=== PATIENT | male | born 1940 | race Caucasian/White ===

== ENCOUNTER → 2021-12-23 | Outpatient (CLI) | payer MEDICARE, SELFPAY ==
--- NOTE | 2021-12-23 | BLB_PTH ---
PATIENT: ANTON MENDOZA LOC: [place] U#:[id number] AGE/SX: 81/M ROOM: RE12/23/[address]: Dr. Billy Fernandez MD : 1940 BED: DIS: 12/23/2021 SPEC #: [id number] RECD: 12/23/21 15:01 STATUS: DARON RENupru #: [id number] MARIA TERESA: 12/23/21 00:[address]: Billy Fernandez DEPT: SURGICAL PATHOLOGY RECD BY: Maverick Thompson ENTERED: 12/24/21 08:47 SP TYPE: TURB OTHR DR: Dr. Ady Patel, [facility] Tissues: Urinary bladder, NOS Procedures: Surgery Specimen Level V HEADER OPERATION: Transurethral resection bladder tumor PRE-OP DIAGNOSIS: Neoplasm of bladder, gross hematuria TISSUE SUBMITTED: Bladder tumor MICROSCOPIC DIAGNOSIS Urinary bladder, transurethral resection: Papillary urothelial carcinoma. See cancer synoptic report below. AM:rebecca 12/25/2021 COMMENT BLADDER CANCER (TUR) SUMMARY Procedure: Transurethral resection of bladder tumor (TURBT) Tumor site: Not specified Histologic type: Papillary urothelial carcinoma Histologic grade: 1/3 (WHO low grade) Tumor configuration: Papillary Muscularis propria presence: Not present in specimen. Lymphvascular invasion: Not identified Tumor extension: Confined to urothelium. Additional pathologic findings: None The above summary is in compliance with [employer] [place] [employer] (CAP) Cancer Protocols Checklist and [place] Joint Committee on Cancer (AJCC), Staging Manual, 8th Ed. Case has been reviewed in consultation with Dr. Lunsford who concurs with the above diagnosis. STUART:BERNIE MICROSCOPIC DESCRIPTION Slides are reviewed. GROSS DESCRIPTION Received in fixative is one container labeled with the patient's name and designated bladder tumor. The specimen consists of multiple irregular fragments of light mehta soft tissue that in aggregate measure 5 x 3 x 0.3 cm. The specimen is totally submitted in two cassettes. / BERNIE:rebecca 12/24/2021 TC:0 CPT: 36563
== END | disposition home or self-care (01) ==
LOC: LABSPEC 15:30
PROVIDERS: PCP Preventive Medicine Occupational Medicine; Referring Provider Urology; Visit Provider Urology
DX: R31.0 Gross hematuria (principal); D41.4 Neoplasm of uncertain behavior of bladder
CPT/HCPCS: 88307

== ENCOUNTER → 2022-02-20 | Outpatient (CLI) | payer MEDICARE, SELFPAY ==
[2022-02-20 14:47] LABS: Hematocrit 43.2 % (40-54); Hemoglobin 14.8 g/dL (13.0-16.5); Mean Corp Hgb Conc 34.3 g/dL (32-36); Mean Corpuscular Hgb 31.6 pg (27.0-32.0); Mean Corpuscular Volume 92.3 fL (80-94); Mean Platelet Vol. 10.2 fl (6.2-12.0); Platelet Count 262 K/mm3 (150-450); RBC Distribution Width CV 13.7 % (11.6-14.6); RBC Distribution Width SD 46.8 fl (35.1-43.9); Red Blood Count 4.68 M/mm3 (4.6-6.2); White Blood Count 6.4 K/mm3 (4.4-11.0)
[2022-02-20 15:07] LABS: Anion Gap 8 (5-15); BUN 22 mg/dL (7-18); BUN/Creat Ratio 20.8 RATIO (10-20); Calcium,Total 9.1 mg/dL (8.5-10.1); Chloride 104 mmol/L (98-107); Creatinine, Serum 1.06 mg/dL (0.70-1.30); EST Glomerular Filtration Rate 71 mL/min (>60); Est Glom Filt Rate - Afr Amer 86 mL/min (>60); Glucose 92 mg/dL (74-106); Potassium 3.8 mmol/L (3.5-5.1); Sodium Level 139 mmol/L (136-145)
== END | disposition home or self-care (01) ==
LOC: LAB 13:37
PROVIDERS: PCP Family Medicine; Referring Provider Urology; Visit Provider Urology
DX: Z01.818 Encounter for other preprocedural examination (principal)
CPT/HCPCS: 36415; 80048; 85027

== ENCOUNTER → 2022-03-10 | Outpatient (CLI) | payer MEDICARE, SELFPAY ==
--- NOTE | 2022-03-10 | BLB_PTH ---
PATIENT: ANTON MENDOZA LOC: [place] U#:[id number] AGE/SX: 82/M ROOM: RE03/10/[address]: Dr. Billy Fernandez MD : 1940 BED: DIS: 03/10/2022 SPEC #: [id number] RECD: 03/10/22 14:50 STATUS: DARON RENupur #: [id number] MARIA TERESA: 03/10/22 00:[address]: Billy Fernandez DEPT: SURGICAL PATHOLOGY RECD BY: Maverick Thompson ENTERED: 03/11/22 11:11 SP TYPE: TURB OTHR DR: Dr. Azul Rehman, [facility] Tissues: Urinary bladder, NOS Procedures: Surgery Specimen Level V HEADER OPERATION: Transurethral resection bladder tumor PRE-OP DIAGNOSIS: Malignant neoplasm of bladder TISSUE SUBMITTED: Bladder tumor MICROSCOPIC DIAGNOSIS Urinary bladder tumor, transurethral resection: Benign urothelial polyp with associated mild chronic inflammation. AM:rebecca 03/12/2022 COMMENT Reference is made to the patient's previous urinary bladder TUR ([id number]) in which papillary urothelial carcinoma was identified. Case has been reviewed in consultation with Dr. Lunsford who concurs with the above diagnosis. IDC:BERNIE MICROSCOPIC DESCRIPTION Slides are reviewed. GROSS DESCRIPTION Received in fixative is one container labeled with the patient's name and designated bladder tumor. The specimen consists of one irregular fragment of light mehta soft tissue that measures 0.2 x 0.1 x 0.1 cm. The specimen is totally submitted in one cassette. / SJ:rebecca 03/11/2022 TC:3 CPT: 58602
== END | disposition home or self-care (01) ==
PROVIDERS: PCP Family Medicine; Visit Provider Urology
DX: C67.9 Malignant neoplasm of bladder, unspecified (principal)
CPT/HCPCS: 88307

== ENCOUNTER → 2022-06-24 | Outpatient (CLI) | payer MEDICARE, SELFPAY ==
[2022-06-24 11:23] LABS: Hematocrit 45.9 % (40-54); Hemoglobin 15.3 g/dL (13.0-16.5); Mean Corp Hgb Conc 33.3 g/dL (32-36); Mean Corpuscular Hgb 31.5 pg (27.0-32.0); Mean Corpuscular Volume 94.6 fL (80-94); Mean Platelet Vol. 9.9 fl (6.2-12.0); Platelet Count 260 K/mm3 (150-450); RBC Distribution Width CV 13.8 % (11.6-14.6); RBC Distribution Width SD 48.1 fl (35.1-43.9); Red Blood Count 4.85 M/mm3 (4.6-6.2); White Blood Count 5.4 K/mm3 (4.4-11.0)
[2022-06-24 11:46] LABS: Anion Gap 5 (5-15); BUN 20 mg/dL (7-18); BUN/Creat Ratio 18.7 RATIO (10-20); Calcium,Total 9.5 mg/dL (8.5-10.1); Chloride 104 mmol/L (98-107); Creatinine, Serum 1.07 mg/dL (0.70-1.30); EST Glomerular Filtration Rate 70 mL/min (>60); Est Glom Filt Rate - Afr Amer 85 mL/min (>60); Glucose 127 mg/dL (74-106); Potassium 3.8 mmol/L (3.5-5.1); Sodium Level 138 mmol/L (136-145)
== END | disposition home or self-care (01) ==
LOC: LAB 11:04
PROVIDERS: PCP Family Medicine; Referring Provider Urology; Visit Provider Urology
DX: Z01.812 Encounter for preprocedural laboratory examination (principal)
CPT/HCPCS: 36415; 80048; 85027

== ENCOUNTER → 2022-07-04 | Outpatient (CLI) | payer MEDICARE, SELFPAY ==
--- NOTE | 2022-07-04 08:15 | BLB_PTH ---
PATIENT: ANTON MENDOZA LOC: [place] U#:[id number] AGE/SX: 82/M ROOM: RE07/04/[address]: Dr. Billy Fernandez MD : 1940 BED: DIS: 07/04/2022 SPEC #: [id number] RECD: 07/04/22 14:58 STATUS: DARON RENupur #: [id number] MARIA TERESA: 07/04/22 08:[address]: Billy Fernandez DEPT: SURGICAL PATHOLOGY RECD BY: Em Foy ENTERED: 07/07/22 08:20 SP TYPE: TURB OTHR DR: Dr. Azul Rehman, [facility] Tissues: Urinary bladder, NOS Procedures: Surgery Specimen Level V HEADER OPERATION: Transurethral resection of bladder PRE-OP DIAGNOSIS: Malignant neoplasm of lateral wall of bladder TISSUE SUBMITTED: Bladder tumor MICROSCOPIC DIAGNOSIS Bladder tumor, transurethral resection: Focal mild chronic inflammation and foreign body giant cell reaction. Negative for malignancy. See comment. BERNIE:rebecca 07/08/2022 COMMENT The specimen predominantly consists of detrusor muscle. Overlying epithelium is denuded in most of the specimen. Please make reference to previous specimens ([id number]), urinary bladder, TUR with diagnosis of ?papillary urothelial carcinoma? and ([id number]) urinary bladder tumor, TUR with diagnosis of ?benign urothelial polyp with associated mild chronic inflammation.? Clinical correlation and appropriate follow up are necessary. MICROSCOPIC DESCRIPTION Slides are reviewed. GROSS DESCRIPTION Received in fixative is one container labeled with the patient's name and designated bladder tumor. The specimen consists of a piece of mehta-pink soft tissue measuring 0.6 x 0.6 x 0.3 cm. The specimen is bisected and submitted entirely in one cassette. / BERNIE:rebecca 07/07/2022 TC:5 CPT: 61569
== END | disposition home or self-care (01) ==
LOC: LABSPEC 15:12
PROVIDERS: PCP Family Medicine; Referring Provider Urology; Visit Provider Urology
DX: C67.2 Malignant neoplasm of lateral wall of bladder (principal)
CPT/HCPCS: 88307

== ENCOUNTER 2022-11-05 09:29 | Day surgery (SDC) | payer MEDICARE, SELFPAY ==
[2022-10-30 11:26] LABS: Hematocrit 43.1 % (40-54); Hemoglobin 14.4 g/dL (13.0-16.5); Mean Corp Hgb Conc 33.4 g/dL (32-36); Mean Corpuscular Hgb 31.6 pg (27.0-32.0); Mean Corpuscular Volume 94.7 fL (80-94); Platelet Count 231 K/mm3 (150-450); RBC Distribution Width CV 13.2 % (11.6-14.6); RBC Distribution Width SD 45.6 fl (35.1-43.9); Red Blood Count 4.55 M/mm3 (4.6-6.2); White Blood Count 5.7 K/mm3 (4.4-11.0)
[2022-10-30 11:30] LABS: International Normalized Ratio 1.1; Prothrombin Time (Protime)PT. 13.8 SECONDS (11.7-14.9)
[2022-10-30 11:31] LABS: Partial Thromboplast Time 27.6 Seconds (24.1-36.2)
[2022-10-30 12:04] LABS: AST(SGOT) 26 U/L (15-37); Alanine Aminotransfer ALT/SGPT 36 U/L (16-61); Albumin, Serum 3.6 g/dL (3.2-5.0); Alkaline Phosphatase 60 U/L (45-117); Anion Gap 4 (5-15); BUN 18 mg/dL (7-18); Bilirubin, Direct 0.23 mg/dL (0.00-0.30); Calcium,Total 9.1 mg/dL (8.5-10.1); Chloride 104 mmol/L (98-107); Creatinine, Serum 1.06 mg/dL (0.70-1.30); EST Glomerular Filtration Rate 71 mL/min (>60); Est Glom Filt Rate - Afr Amer 86 mL/min (>60); Globulin 3.6 g/dL (2.2-4.2); Glucose 95 mg/dL (74-106); Potassium 3.6 mmol/L (3.5-5.1); Protein, Total 7.2 g/dL (6.4-8.2); Sodium Level 137 mmol/L (136-145)
[2022-11-05] VITALS (8 sets, daily range): BP systolic 133–147; BP diastolic 68–83; PULSE 66–91; RESP 18–69; TEMP 25–36.8; O2SAT 92–98; BMI 39.4
[2022-11-05] MEDS: Lactated Ringers 1,000 ML 15 ML IV (10:17)
--- NOTE | 2022-11-05 10:41 | HP.PCM_ITS ---
HPI - General General Date of Service: 11/05/22 Chief Complaint: Bladder cancer HPI Narrative ANTON MENDOZA, is a 82 M who presents for resection of a bladder tumor in the dome of his bladder and instillation of Mitomycin-C [facility] Medical History (Updated 10/27/22 @ 14:33 by Johanna Casper) Alcohol use Arthritis Asthma Back pain Bladder disease Cancer Cardiology follow-up encounter Easy bruising Former smoker Gastric reflux History of echocardiogram History of edema History of stress test History of ulceration Hypertension Loss of hearing Pain Shortness of breath on exertion Thyroid disease Vertigo Walker as ambulation aid Wears dentures Home Medications amlodipine 5 mg tablet 5 mg PO DAILY 10/27/22 [History Last Taken 11/05/22] aspirin 81 mg capsule 81 mg PO DAILY 10/27/22 [History Last Taken 10/26/22] budesonide 90 mcg/actuation breath activated powder inhaler (Pulmicort Flexhaler) 2 inh inhalation Q12H 10/27/22 [History Last Taken Unknown] celecoxib 100 mg capsule 100 mg PO DAILY 10/27/22 [History Last Taken Unknown] doxazosin 4 mg tablet 4 mg PO DAILY 10/27/22 [History Last Taken 11/05/22] fenofibrate nanocrystallized 145 mg tablet 145 mg PO QHS 10/27/22 [History Last Taken Unknown] hydrochlorothiazide 12.5 mg capsule 12.5 mg PO DAILY 10/27/22 [History Last Taken Unknown] levothyroxine 75 mcg tablet 75 mcg PO QHS 10/27/22 [History Last Taken 11/05/22] loratadine 10 mg tablet (Claritin) 10 mg PO DAILY 10/27/22 [History Last Taken Unknown] ciprofloxacin HCl 500 mg tablet (Cipro) 500 mg PO BID #10 tabs 11/05/22 [Rx Last Taken Unknown] Allergy/AdvReac Type Severity Reaction Status Date / Time acetaminophen [From Percocet] Allergy Intermediate Rash Verified 11/05/22 10:05 clopidogrel [From Plavix] Allergy Intermediate Rash Verified 11/05/22 10:05 hydrocodone [From [place]] Allergy Intermediate Rash Verified 10/27/22 14:11 oxycodone Allergy Intermediate Rash Verified 11/05/22 10:05 Surgical History (Updated 10/27/22 @ 14:33 by Johanna Casper) History of cardiac catheterization History of carpal tunnel surgery of left wrist History of carpal tunnel surgery of right wrist History of coronary artery stent placement History of fusion of cervical spine History of lumbar discectomy History of lumbar fusion Hx of detached retina repair Hx of elbow surgery Hx of foot surgery Hx of left cataract extraction Hx of right cataract extraction Hx of rotator cuff surgery Hx of total knee arthroplasty Hx of transurethral destruction of bladder lesion Social History Smoking Status: Former smoker Vital Signs Vital Signs Vital Signs: 11/05/22 10:11 11/05/22 10:11 Temperature 98.2 F Temperature Source Temporal Pulse Rate 67 Respiratory Rate 18 Respiratory Pattern Normal Blood Pressure 146/69 H Blood Pressure Mean 94 Blood Pressure Source Monitor Blood Pressure Position Semi-Fowlers Blood Pressure Location Right Arm Pulse Ox 95 Oxygen Delivery Method Room Air Weight Weight: 101 kg Body Mass Index (BMI) 39.4 Results Lab / Micro Data 10/30/22 10:48 10/30/22 10:48
--- NOTE | 2022-11-05 10:41 | DCINST_ITS ---
Discharge Instructions Diet Discharge Diet: No restrictions Activity Discharge Activity: Return to Normal Activity and May Not Drive (while taking narcotic pain medications.) Dressing / Incision Call your doctor if you observe: Fever of 101 or Higher Follow Up Care Please Follow Up With: Billy Fernandez MD When: Call [phone] for an appointment Test Results: Test results from this visit will be discussed in further detail at your follow- up appointment, if applicable. Discharge Plan Admission Primary Reason for Your Visit: Resection of bladder tumor Attending Provider: Billy Fernandez Primary Care Provider: Azul Rehman Discharge Orders/Prescriptions Prescriptions: New ciprofloxacin HCl [Cipro] 500 mg tablet 500 mg PO BID Qty: 10 0RF No Action levothyroxine 75 mcg tablet 75 mcg PO QHS Patient Comments: TAKE 1 TABLET BY MOUTH EVERY DAY amlodipine 5 mg tablet 5 mg PO DAILY Patient Comments: TAKE 1 TABLET BY MOUTH EVERY DAY doxazosin 4 mg tablet 4 mg PO DAILY loratadine [Claritin] 10 mg tablet 10 mg PO DAILY hydrochlorothiazide 12.5 mg capsule 12.5 mg PO DAILY fenofibrate nanocrystallized 145 mg tablet 145 mg PO QHS Patient Comments: TAKE 1 TABLET BY MOUTH AT BEDTIME aspirin 81 mg capsule 81 mg PO DAILY Pulmicort Flexhaler 90 mcg/actuation aerosol powdr breath activated 2 inh INHALATION Q12H Patient Comments: INHALE 2 PUFFS BY MOUTH TWICE A DAY celecoxib 100 mg capsule 100 mg PO DAILY Referrals / Follow Up: Billy Fernandez MD [Med Staff - Active Staff] - Azul Rehman DO [Primary Care Provider] - Disposition Disposition (needs filled in before D/C Order can be placed): Home, Self Care
[2022-11-05] MEDS: Cefazolin 2 GM in 0.9% Normal Saline (100mL Bag) 100 ML IV (11:21)
--- NOTE | 2022-11-05 11:30 | BLB_PTH ---
PATIENT: ANTON MENDOZA LOC: [facility] [place] U#:[id number] AGE/SX: 82/M ROOM: RE11/05/[address]: Dr. Billy Fernandez MD : 1940 BED: DIS: 11/05/2022 SPEC #: [id number] RECD: 11/05/22 12:25 STATUS: DARON SUE #: [id number] MARIA TERESA: 11/05/22 11:[address]: Billy Fernandez DEPT: SURGICAL PATHOLOGY RECD BY: Aruna Marcus ENTERED: 11/05/22 13:05 SP TYPE: TURB OTHR DR: Dr. Azul Rehman, DO Tissues: Urinary bladder, NOS Procedures: Surgery Specimen Level V HEADER OPERATION: Cysto, transurethral bladder PRE-OP DIAGNOSIS: Bladder tumor TISSUE SUBMITTED: Fragment bladder tumor MICROSCOPIC DIAGNOSIS Bladder tumor, transurethral resection: Papillary urothelial carcinoma, noninvasive. See cancer summary in the comment section. SJ:rg 11/06/2022 COMMENT BLADDER CANCER (TUR) SUMMARY Procedure: Transurethral resection of bladder tumor (TURBT) Tumor site: Not identified Histologic type: Papillary urothelial carcinoma, noninvasive Associated epithelial lesions: None identified Histologic grade: Low grade (1/3) Tumor configuration: Papillary Muscularis propria presence: No muscularis propria (detrusor muscle) is identified. Lymphvascular invasion: Not identified Tumor extension: Noninvasive papillary carcinoma. Additional pathologic findings: None The above summary is in compliance with [employer] [place] [employer] (CAP) Cancer Protocols Checklist and [place] Joint Committee on Cancer (AJCC), Staging Manual, 8th Ed. Please make reference to previous specimens ([id number]) urinary bladder, TUR with diagnosis of papillary urothelial carcinoma and ([id number]) urinary bladder, TUR with diagnosis of benign urothelial polyp with associated mild chronic inflammation and ([id number]) bladder tumor, TUR with diagnosis of focal mild chronic inflammation and foreign body giant cell reaction, negative for malignancy. Case has been reviewed in consultation with Dr. Rowley who concurs with the above diagnosis. IDC:AM MICROSCOPIC DESCRIPTION Slides are reviewed. GROSS DESCRIPTION Received in fixative is one container labeled with the patient's name and designated fragment bladder tumor. The specimen consists of multiple irregular fragments of light mehta soft tissue that in aggregate measure 2.0 x 0.3 x 0.1 cm. The specimen is totally submitted in one cassette. / BERNIE:rebecca 11/05/2022 TC:0 CPT: 30758
[2022-11-05] MEDS: MitoMYcin 40 MG in Syringe 1 EACH 2400 MG INSTILLAT (11:53)
--- NOTE | 2022-11-05 12:02 | PCM.OPRPT ---
Report of Operation Date of Procedure: 11/05/22 Pre-Operative Diagnosis: Bladder tumors Post-Operative Diagnosis: The same Surgery/Procedure Performed:: Transurethral resection of bladder tumors and instillation of Mitomycin-C Description of Surgical Findings:: Patient presented to the hospital for treatment of a tumor that was found in the bladder with a very large bladder tumor. Patient understands is possible it may not be able to resect the entire tumor. Patient also understands is possible that the patient may need multiple procedures or more invasive procedures to cure him of this cancer. Patient was taken back to the operating room after smooth induction of anesthesia the patient was placed supine on the table. The patient was placed in dorsolithotomy position. The urethra and genitals prepped and draped in usual sterile fashion. I went into the bladder with a 30 degree lens and a cystoscope was performed and identified the tumor the tumors which was about 2.5 centimeters in size and occupying mostly the anterior dome of the bladder. I then switched over to the 70 degree lens and inspected the rest of the bladder with a 70 degree lens to make sure there is no other tumors in the bladder and to identify all the tumor locations. The right and left ureteral orifice were identified. The tumor was involved in the not unvolved in the ureteral orifices. I then placed the Olympus bipolar resectoscope with a large loop into the bladder. I then started resected the tumor and started superficially shaving small little pieces working my way to the base of the tumor. As I went along I then cauterize any bleeders that were encountered during the resection. The tumor pieces were then flushed out of the bladder and continued resecting the tumor until finally I got down to the base of the tumor and the muscle of the bladder was then identified a small little bit of muscle was taken with the resection. The Ellik was used then to evacuate all the tumor pieces out of the bladder. I then cauterized extensively the tumor base and also circumferentially around where the tumor was. Again we made sure to evacuate all the pieces out the bladder. I made sure there was no more bleeding from the base of the bladder and then over the tumor pieces were then evacuated out and sent off as a specimen. After the resection of the entire tumor was completed then treatment with Mitomycin-C was performed. We then placed the catheter in the bladder and the patient was taken back to the PACU in stable condition. Surgeon: Billy Fernandez Type of Anesthesia: General Drains: 18 fr wiht mitomycin C Admit VTE Documentation VTE Present on Admission: No VTE Mechan Device Prophylaxis: SCD's VTE Pharm Prophylaxis ordered?: No
--- NOTE | 2022-11-05 12:39 | SUR.PHASEI ---
CATHETER JUST UNCLAMPED TO DRAIN MITOMYCIN
--- NOTE | 2022-11-05 13:23 | SUR.PHASEI ---
I SPOKE TO DR. HARRIS AND HE SAID TO GO AHEAD AND PULL THE CATHETER EVEN THOUGH URINE COMING OUT IS LIGHT RED. CATHETER PULLED WITHOUT DIFFICULTY.
== END 2022-11-05 14:25 | disposition home or self-care (01) ==
LOC: SDC 09:29 → AC 09:30
PROVIDERS: Anesthesiology; PCP Family Medicine; Referring Provider Urology; Visit Provider Urology
PROC: 0T5B8ZZ Destruction of Bladder, Via Natural or Artificial Opening Endoscopic (ICD-10-PCS; CPT 51720; principal; 2022-11-05 11:20)
DX: C67.9 Malignant neoplasm of bladder, unspecified (principal); I10 Essential (primary) hypertension; E07.9 Disorder of thyroid, unspecified; J45.909 Unspecified asthma, uncomplicated; Z79.82 Long term (current) use of aspirin; Z79.899 Other long term (current) drug therapy; Z87.891 Personal history of nicotine dependence; Z95.5 Presence of coronary angioplasty implant and graft
CPT/HCPCS: 52240; 00912; 36415; 80048; 80076; 84443; 85027; 85610; 85730; 88307; 93005; J7120; J9280; J2405

== ENCOUNTER → 2023-03-30 | Outpatient (CLI) | payer MEDICARE, SELFPAY | END | disposition home or self-care (01) | PROVIDERS: PCP Family Medicine; Referring Provider Urology; Visit Provider Urology | DX: R30.0 Dysuria (principal) | CPT/HCPCS: 87086 ==

== ENCOUNTER → 2023-04-28 | Outpatient (CLI) | payer MEDICARE, SELFPAY ==
--- NOTE | 2023-04-28 | CYSPIN_PTH ---
PATHOLOGY RESULTS PATIENT: ANTON MENDOZA LOC: [place] U#:[id number] AGE/SX: 83/M ROOM: RE04/28/[address]: Dr. Billy Fernandez MD : 1940 BED: DIS: 04/28/2023 SPEC #: [id number] RECD: 04/29/23 08:03 STATUS: DARON RENupur #: [id number] MARIA TERESA: 04/28/23 00:[address]: Billy Fernandez DEPT: CYTOLOGY RECD BY: Migdalia Little ENTERED: 04/29/23 08:05 SP TYPE: CYSPIN FL OTHR DR: Dr. Azul Rehman, DO Tissues: Urine Procedures: Pap Stain (control) Special Stain Group II Cytospin Fluid HEADER OPERATION: Not noted PRE-OP DIAGNOSIS: Malignant neoplasm of the bladder TISSUE SUBMITTED: Urine for cytology DIAGNOSIS CYTOLOGY Urine for cytology (cytospin): Highly atypical cells present suspicious for high grade urothelial carcinoma. (VIKIGUC), Lisa system Category IV. Acute inflammation See comment. BERNIE/ 04/29/23 COMMENT The Lisa System for urine cytology diagnostic categorization was used in the evaluation of this case. Clinical correlation and appropriate follow up are necessary. Please make reference to previous specimen ([id number]) Bladder tumor TUR and ([id number]) Bladder tumor TUR with diagnosis of papillary urothelial carcinoma. Case has been reviewed in consultation with Dr. Rowley who concurs with the above diagnosis. IDC:AM CYTOLOGY STUDY Slides are reviewed. CYTOLOGY GROSS Received is 110 ml of yellow-cloudy fluid labeled with the patient's name and and designated per the requisition as urine. Submitted for cytology preparation. mr/04/29/23 TC:0 CPT: 64235
[2023-04-28 17:57] LABS: Cytology, Body Fluid / CSF SEE PATHOLOGY REPORT
== END | disposition home or self-care (01) ==
LOC: LABSPEC 16:55
PROVIDERS: PCP Family Medicine; Referring Provider Urology; Visit Provider Urology
DX: C67.2 Malignant neoplasm of lateral wall of bladder (principal)
CPT/HCPCS: 88108; 88313

== ENCOUNTER 2023-05-20 13:31 | Observation (INO) | payer MEDICARE, SELFPAY ==
--- NOTE | 2023-05-14 09:19 | EKG12_ITS ---
Test Reason : PRE-OP Blood Pressure : / mmHG Vent. Rate : 080 BPM Atrial Rate : 080 BPM P-R Int : 150 ms QRS Dur : 070 ms QT Int : 356 ms P-R-T Axes : 019 012 048 degrees QTc Int : 410 ms Normal sinus rhythm Normal ECG Confirmed by JAY DEL VALLE, ADARSH ([id number]), video tape editor VLAD ESTEVEZ ([id number]) on 05/14/2023 2:09:16 PM Referred By: Billy Fernandez Confirmed By:ADARSH THOMPSON MD
[2023-05-14 10:08] LABS: Hematocrit 41.7 % (40-54); Hemoglobin 13.8 g/dL (13.0-16.5); Mean Corp Hgb Conc 33.1 g/dL (32-36); Mean Corpuscular Hgb 30.9 pg (27.0-32.0); Mean Corpuscular Volume 93.5 fL (80-94); Platelet Count 234 K/mm3 (150-450); RBC Distribution Width CV 14.1 % (11.6-14.6); RBC Distribution Width SD 48.6 fl (35.1-43.9); Red Blood Count 4.46 M/mm3 (4.6-6.2); White Blood Count 4.5 K/mm3 (4.4-11.0)
[2023-05-14 10:55] LABS: Anion Gap 6 (5-15); BUN 20 mg/dL (7-18); BUN/Creat Ratio 19.8 RATIO (10-20); Chloride 108 mmol/L (98-107); Creatinine, Serum 1.01 mg/dL (0.70-1.30); EST Glomerular Filtration Rate 75 mL/min (>60); Est Glom Filt Rate - Afr Amer 90 mL/min (>60); Glucose 110 mg/dL (74-106); Potassium 3.8 mmol/L (3.5-5.1); Sodium Level 141 mmol/L (136-145)
[2023-05-20] VITALS (14 sets, daily range): BP systolic 102–157; BP diastolic 59–89; PULSE 63–92; RESP 12–18; TEMP 36.3–36.7; O2SAT 93–98; BMI 39.4; BMI 39.5
--- NOTE | 2023-05-20 | PROS_PTH ---
PATIENT: ANTON MENDOZA LOC: [place] U#:[id number] AGE/SX: 83/M ROOM: [facility] RE05/20/[address]: Dr. Billy Fernandez MD : 1940 BED: 1 DIS: 05/21/2023 SPEC #: [id number] RECD: 05/20/23 15:07 STATUS: DARON WOODNupur #: [id number] MARIA TERESA: 05/20/23 00:[address]: Billy Fernandez DEPT: SURGICAL PATHOLOGY RECD BY: Maverick Thompson ENTERED: 05/21/23 09:57 SP TYPE: TURP OTHR DR: Dr. Azul Rehman DO Tissues: A - Urinary bladder, NOS B - Prostate, NOS Procedures: Surgery Specimen Level IV Surgery Specimen Level V HEADER OPERATION: Transurethral resection of prostate with Olympus PRE-OP DIAGNOSIS: Enlarged prostate, Bladder cancer TISSUE SUBMITTED: A- Bladder tissue, B- Prostate tissue MICROSCOPIC DIAGNOSIS A. Bladder, biopsy: Chronic inflammation. Negative for malignancy. See comment. B. Prostate tissue, Transurethral resection: Benign prostatic hyperplasia, glandular and stromal type. Chronic inflammation. [facility] 05/22/23 COMMENT A. Focal non-necrotizing granulomas are also noted, may represent therapy related changes. The epithelium is completely denuded in the entire specimen. Please make reference to previous specimen [id number] urinary bladder, transurethral resection diagnosis of papillary urothelial carcinoma and [id number] bladder tumor, transurethral resection diagnosis of papillary urothelial carcinoma, noninvasive. Correlation with clinical, cystoscopic findings and appropriate follow up are necessary. MICROSCOPIC DESCRIPTION Slides are reviewed. GROSS DESCRIPTION A. Received in fixative is one container labeled with the patient's name and designated Bladder biopsy. The specimen consists of multiple irregular fragments of light mehta soft tissue that in aggregate measure 0.4 x 0.2 x 0.1 cm. The specimen is totally submitted in one cassette. B. Received is one container labeled with the patient's name and designated prostate tissue. The specimen consists of multiple irregular fragments of pink-mehta, rubbery, soft tissue that in aggregate weigh 4.7 gm and measure in aggregate 3.0 x 3.0 x 1.5 cm. The entire specimen is submitted in five cassettes. Efraín 05/21/23 TC:5 CPT: 30128z0
[2023-05-20] MEDS: Lactated Ringers 1,000 ML 15 ML IV ×2 (11:04→14:05)
[2023-05-20] MEDS: Cefazolin 2 GM in 0.9% Normal Saline (100mL Bag) 100 ML IV (12:46)
--- NOTE | 2023-05-20 13:33 | DCINST_ITS ---
Discharge Instructions Diet Discharge Diet: No restrictions Activity Discharge Activity: Return to Normal Activity and May Not Drive (while taking narcotic pain medications.) Dressing / Incision Call your doctor if you observe: Fever of 101 or Higher Follow Up Care Please Follow Up With: Billy Fernandez MD When: Call [phone] for an appointment Test Results: Test results from this visit will be discussed in further detail at your follow- up appointment, if applicable. Discharge Plan Admission Primary Reason for Your Visit: Transurethral section of prostate Attending Provider: Billy Fernandez Primary Care Provider: Azul Rehman Discharge Orders/Prescriptions Prescriptions: New ciprofloxacin HCl [Cipro] 500 mg tablet 500 mg PO BID Qty: 20 0RF Continued amlodipine 5 mg tablet 5 mg PO DAILY Patient Comments: TAKE 1 TABLET BY MOUTH EVERY DAY doxazosin 4 mg tablet 4 mg PO DAILY loratadine [Claritin] 10 mg tablet 10 mg PO DAILY fenofibrate nanocrystallized 145 mg tablet 145 mg PO QHS Patient Comments: TAKE 1 TABLET BY MOUTH AT BEDTIME Pulmicort Flexhaler 90 mcg/actuation aerosol powdr breath activated 2 inh INHALATION Q12H Patient Comments: INHALE 2 PUFFS BY MOUTH TWICE A DAY celecoxib 100 mg capsule 100 mg PO BID dutasteride [Avodart] 0.5 mg capsule 0.5 mg PO DAILY tamsulosin [Flomax] 0.4 mg capsule 0.4 mg PO QHS levothyroxine 100 mcg tablet See Rx Instructions PO DAILY Rx Instructions: 100 MCG THURSDAY, THURSDAY, THURSDAY AND THURSDAY 200 MCG THURSDAY, THURSDAY AND THURSDAY Held aspirin 81 mg capsule 81 mg PO DAILY Hold Instructions: Resume on 06/03/23. Other Ambulatory Orders: 12 Lead EKG (Routine) Timeframe: [id number] Location: None Selected Ordered By: Dr. Cas Bernard Referrals / Follow Up: Billy Fernandez MD [Med Staff - Active Staff] - Azul Rehman DO [Primary Care Provider] - Disposition Disposition (needs filled in before D/C Order can be placed): Home, Self Care
--- NOTE | 2023-05-20 13:33 | PCM.HP.STD ---
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 HPI Narrative ANTON MENDOZA, is a 83 M who presents for a transurethral resection of bladder tumor cancer and also TURP [facility] Medical History (Updated 05/14/23 @ 08:37 by Barbara Walotn) Alcohol use Arthritis Asthma Back pain Bladder disease Cancer Cardiology follow-up encounter Easy bruising Former smoker Gastric reflux History of echocardiogram History of edema History of stress test History of ulceration Hypertension Loss of hearing Pain Prostate disease Shortness of breath on exertion Thyroid disease Vertigo Walker as ambulation aid Wears dentures Home Medications amlodipine 5 mg tablet 5 mg PO DAILY 10/27/22 [History Last Taken 11/05/22] aspirin 81 mg capsule 81 mg PO DAILY 10/27/22 [History Last Taken 05/09/23] budesonide 90 mcg/actuation breath activated powder inhaler (Pulmicort Flexhaler) 2 inh inhalation Q12H 10/27/22 [History Last Taken 05/20/23] celecoxib 100 mg capsule 100 mg PO BID 10/27/22 [History Last Taken 05/19/23] doxazosin 4 mg tablet 4 mg PO DAILY 10/27/22 [History Last Taken 05/20/23] fenofibrate nanocrystallized 145 mg tablet 145 mg PO QHS 10/27/22 [History Last Taken 05/19/23] loratadine 10 mg tablet (Claritin) 10 mg PO DAILY 10/27/22 [History Last Taken 05/19/23] dutasteride 0.5 mg capsule (Avodart) 0.5 mg PO DAILY 05/14/23 [History Last Taken 05/19/23] levothyroxine 100 mcg tablet See Rx Instructions PO DAILY 05/14/23 [History Last Taken 05/20/23] tamsulosin 0.4 mg capsule (Flomax) 0.4 mg PO QHS 05/14/23 [History Last Taken 05/19/23] ciprofloxacin HCl 500 mg tablet (Cipro) 500 mg PO BID #20 tabs 05/20/23 [Rx Last Taken Unknown] Allergy/AdvReac Type Severity Reaction Status Date / Time clopidogrel [From Plavix] Allergy Intermediate Rash Verified 11/05/22 10:05 hydrocodone [From [place]] Allergy Intermediate Rash Verified 10/27/22 14:11 oxycodone Allergy Intermediate Rash Verified 11/05/22 10:05 Surgical History History of cardiac catheterization History of carpal tunnel surgery of left wrist History of carpal tunnel surgery of right wrist History of coronary artery stent placement History of fusion of cervical spine History of lumbar discectomy History of lumbar fusion Hx of detached retina repair Hx of elbow surgery Hx of foot surgery Hx of left cataract extraction Hx of right cataract extraction Hx of rotator cuff surgery Hx of total knee arthroplasty Hx of transurethral destruction of bladder lesion Social History Smoking Status: Former smoker Vital Signs Vital Signs Vital Signs: 05/20/23 10:47 05/20/23 10:57 Temperature 97.7 F L Temperature Source Temporal Pulse Rate 66 Respiratory Rate 18 Respiratory Pattern Normal Blood Pressure 151/72 H Blood Pressure Mean 98 Blood Pressure Source Monitor Blood Pressure Position Sitting Blood Pressure Location Right Arm Pulse Ox 95 Oxygen Delivery Method Room Air Weight Weight: 101 kg Body Mass Index (BMI) 39.4 Results Lab / Micro Data 05/14/23 09:36 05/14/23 09:36
--- NOTE | 2023-05-20 13:33 | PCM.OPRPT ---
Report of Operation Date of Procedure: 05/20/23 Pre-Operative Diagnosis: Bladder cancer BPH with obstruction Post-Operative Diagnosis: Same Surgery/Procedure Performed:: Transurethral resection of the prostate, transurethral section of bladder tumor medium. Description of Surgical Findings:: Patient presented to the hospital for treatment of a tumor that was found in the bladder with a very large bladder tumor. Patient understands is possible it may not be able to resect the entire tumor. Patient also understands is possible that the patient may need multiple procedures or more invasive procedures to cure him of this cancer. Patient was taken back to the operating room after smooth induction of anesthesia the patient was placed supine on the table. The patient was placed in dorsolithotomy position. The urethra and genitals prepped and draped in usual sterile fashion. I went into the bladder with a 30 degree lens and a cystoscope was performed and identified the tumor the tumors which was about 3 centimeters in size and occupying mostly the posterior wall of the bladder. I then switched over to the 70 degree lens and inspected the rest of the bladder with a 70 degree lens to make sure there is no other tumors in the bladder and to identify all the tumor locations. The right and left ureteral orifice were identified. The tumor was not involved in the ureteral orifices. I then placed the Olympus bipolar resectoscope with a large loop into the bladder. I then started resected the tumor and started superficially shaving small little pieces working my way to the base of the tumor. As I went along I then cauterize any bleeders that were encountered during the resection. The tumor pieces were then flushed out of the bladder and continued resecting the tumor until finally I got down to the base of the tumor and the muscle of the bladder was then identified a small little bit of muscle was taken with the resection. The Ellik was used then to evacuate all the tumor pieces out of the bladder. After this was done and then I cauterized the posterior aspect of the bladder which looks like carcinoma in situ this was cauterized extensively he might need more BCG therapy Once inside the bladder identified the right and left ureteral orifice. I then identified the prostate and the anatomy of the prostate. I marked out the area of the sphincter and the verumontanum was identified. I then proceeded with the prostate resection first resected the median lobe. And then resected the right lobe of the prostate. Then to resect the left lobe of the prostate. I then resected the apical tissue of the prostate. This was a complete resection of all obstructive tissue to improve voiding and relieve obstruction. I then made sure that there was no injury to the sphincter or the verumontanum was still intact. At the end of the resection all the chips were Ellik out of the bladder. I then identified the left and right ureteral orifice and these were confirmed to be in good position and effluxing and not injured. The resectoscope was removed, a 22 Japanese catheter was placed into the bladder on continuous irrigation. And the urine was fairly light pink color and draining normally. He was taken back to the PACU in good condition. Surgeon: Billy Fernandez Type of Anesthesia: General Drains: [address] Ad[address] VTE Documentation VTE Present on Admission: No VTE Mechan Device Prophylaxis: SCD's VTE Pharm Prophylaxis ordered?: No
[2023-05-20] MEDS: Ipratropium/Albuterol Sulfate 3 ML AMPUL.NEB INHALATION (13:57)
--- NOTE | 2023-05-20 16:04 | NURSING ---
All documentation by clinical nursing intern, Trinity Peter, reviewed by nursing support worker, Fannie LOPEZN, RN.
[2023-05-20] MEDS: 0.9% Normal Saline (1000mL) 1,000 ML 125 ML IV (16:42)
[2023-05-20] MEDS: Budesonide Respules 0.5 MG/2 ML AMPUL.NEB. INHALATION (20:10)
[2023-05-20] MEDS: Ciprofloxacin 400 MG/200 ML BAG 200 MG IV (21:29)
[2023-05-20] MEDS: Acetaminophen 325 MG Tablet PO (21:31)
[2023-05-20] MEDS: Docusate Sodium 100 MG Capsule 200 MG PO (21:32)
[2023-05-20] MEDS: Tamsulosin HCl 0.4 MG Capsule PO (21:32)
[2023-05-20] MEDS: Celecoxib 100 MG Capsule PO (21:33)
[2023-05-20] MEDS: Fenofibrate 145 MG Tablet PO (21:33)
[2023-05-21] VITALS: BP 127/63; PULSE 60; RESP 18; TEMP 36.6; O2SAT 97; BMI 39.5
[2023-05-21] MEDS: 0.9% Normal Saline (1000mL) 1,000 ML 125 ML IV (00:39)
[2023-05-21 04:00] VITALS: BMI 39.5
[2023-05-21] MEDS: Levothyroxine 100 MCG Tablet PO (06:24)
[2023-05-21 06:27] VITALS: BP 142/69; PULSE 62; RESP 16; TEMP 36.6; O2SAT 97
[2023-05-21] MEDS: Budesonide Respules 0.5 MG/2 ML AMPUL.NEB. INHALATION (07:16)
[2023-05-21 07:17] VITALS: PULSE 74; RESP 16; O2SAT 96
--- NOTE | 2023-05-21 07:37 | PCM.PN.GU ---
Subjective Subjective Status post biopsy of the bladder and fulguration of reddish inflamed lesion the bladder could be carcinoma in situ or just chronic inflammation pathology pending. He will go home today. DC Martinez and he can go home after he urinates Objective Data Objective Data Vital Signs: Vital Signs Temp Pulse Resp BP Pulse Ox O2 Del Method O2 Flow Rate 97.9 F 74 16 142/69 H 96 Room Air 2 05/21/23 06:27 05/21/23 07:17 05/21/23 07:17 05/21/23 06:27 05/21/23 07:17 05/21/23 07:17 05/20/23 14:56 Oxygen Flow Rate (L/min) 2 Oxygen Delivery Method Room Air Weight: 101 kg Body Mass Index (BMI) 39.4 Intake & Output: Intake and Output for Last 24 Hours 05/19/23 05/20/23 05/21/23 23:59 23:59 23:59 Intake Total 1263.75 / 1263.75 1793.75 / 1793.75 Output Total 1400 / 1400 Balance 1263.75 / 1263.75 393.75 / 393.75 Lab / Micro Data 05/14/23 09:36 05/14/23 09:36
[2023-05-21 08:42] VITALS: BP 131/54; PULSE 61; RESP 16; TEMP 36.6; O2SAT 94
[2023-05-21] MEDS: Ciprofloxacin 400 MG/200 ML BAG 200 MG IV (09:14)
[2023-05-21] MEDS: Celecoxib 100 MG Capsule PO (09:15)
[2023-05-21] MEDS: Docusate Sodium 100 MG Capsule 200 MG PO (09:15)
[2023-05-21] MEDS: Doxazosin 4 MG Tablet PO (09:16)
[2023-05-21] MEDS: amLODIPine 5 MG Tablet PO (09:16)
[2023-05-21] MEDS: Loratadine 10 MG Tablet PO (09:16)
[2023-05-21] MEDS: Finasteride 5 MG Tablet PO (09:17)
--- NOTE | 2023-05-21 10:59 | CASEMGMT ---
BEA PADILLA NOTE: Pt being discharged. BEA PADILLA to room. Pt sitting up in room. Introduced self and role. Pt denies having any discharge needs/concerns. He lives w/his and states he is independent. Shahbaz LOPEZN BEA PADILLA
== END 2023-05-21 13:42 | disposition home or self-care (01) ==
LOC: SDC 15:39 → MS3 15:39
PROVIDERS: Anesthesiology; Admitting Provider Urology; PCP Family Medicine; Referring Provider Urology; Visit Provider Urology
PROC: 0VT08ZZ Resection of Prostate, Via Natural or Artificial Opening Endoscopic (ICD-10-PCS; CPT 52601; principal; 2023-05-20 12:00)
DX: C67.9 Malignant neoplasm of bladder, unspecified (principal); Z79.82 Long term (current) use of aspirin; I10 Essential (primary) hypertension; Z87.891 Personal history of nicotine dependence; N40.1 Benign prostatic hyperplasia with lower urinary tract symptoms; N13.8 Other obstructive and reflux uropathy; Z79.899 Other long term (current) drug therapy; Z79.890 Hormone replacement therapy; M19.90 Unspecified osteoarthritis, unspecified site; J45.909 Unspecified asthma, uncomplicated; E07.9 Disorder of thyroid, unspecified; K21.9 Gastro-esophageal reflux disease without esophagitis; Z86.2 Personal history of diseases of the blood and blood-forming organs and certain disorders involving the immune mechanism
CPT/HCPCS: 52235; 52601; 00912; 36415; 80048; 84443; 85027; 88305; 88307; 93005; 94640; 96361; 96365; 96366; 99221; J7030; J7120; G0378; J0744; J2405

== ENCOUNTER → 2024-01-04 | Outpatient (CLI) | payer MEDICARE, SELFPAY ==
--- NOTE | 2024-01-04 13:56 | CT_ITS ---
STUDY: CT LEFT SHOULDER REASON FOR EXAM: Male, 83 years old. SHOULDER PAIN RADIATION DOSAGE (If Supplied By Facility): CTDIvol = ( 31.58 ) mGy, DLP = ( 888.43 ) mGycm TECHNIQUE: The patient was scanned in a multi detector CT scanner. High resolution transaxial imaging was performed without the administration of intravenous contrast material. Sagittal and coronal images were reconstructed. Individualized dose optimization techniques were used for this CT. COMPARISON: None. FINDINGS: There is glenohumeral arthrosis with small marginal osteophyte formation. There is superior migration of the humeral head with respect to the glenoid with complete loss of the acromiohumeral space, compatible with a chronic rotator cuff tear. Intact glenoid rim, neck and visualized scapula. Intact humeral head, neck and tuberosities. Normal coracoid process. Intact visualized lateral clavicle. There is hypertrophic acromioclavicular arthrosis with inferior osteophyte formation. There is a Type II morphology (curved), with a neutral orientation. There are old healed fractures of the posterolateral aspects of the left fourth and fifth ribs. Normal visualized muscles and soft tissue structures. 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 Superior migration of the humeral head with complete loss of the acromiohumeral space, compatible with a chronic rotator cuff tear. Old healed fractures of the posterolateral aspects of the left fourth and fifth ribs. Electronically Signed: Deniz Wray MD at 9:07 EST ,
== END | disposition home or self-care (01) ==
LOC: CT 13:55
PROVIDERS: PCP Family Medicine; Referring Provider Student in an Organized Health Care Education/Training Program; Visit Provider Student in an Organized Health Care Education/Training Program
DX: S46.012D Strain of muscle(s) and tendon(s) of the rotator cuff of left shoulder, subsequent encounter (principal); S46.112A Strain of muscle, fascia and tendon of long head of biceps, left arm, initial encounter; M19.012 Primary osteoarthritis, left shoulder
CPT/HCPCS: 73200

== ENCOUNTER 2024-01-28 14:45 | Outpatient (CLI) | payer MEDICARE, SELFPAY ==
[2024-01-04 16:25] LABS: Absolute Lymphocyte Count 1.49 X10^3/uL (0.83-4.51); Absolute Neutrophil Count 3.3 X10^3/uL (2.0-7.7); Basophil# 0.02 X10^3/uL; Basophil% 0.4 % (0-1); Eosinophil# 0.21 X10^3/uL; Eosinophils% 3.8 % (0-5); Hematocrit 41.4 % (40-54); Hemoglobin 13.6 g/dL (13.0-16.5); Lymphocyte # 1.49 X10^3/ul (0.83-4.51); Lymphocyte % 27.1 % (19-41); Mean Corp Hgb Conc 32.9 g/dL (32-36); Mean Corpuscular Hgb 31.5 pg (27.0-32.0); Mean Corpuscular Volume 95.8 fL (80-94); Mean Platelet Vol. 10.7 fl (6.2-12.0); Monocyte# 0.47 X10^3/uL; Monocyte% 8.5 % (0-10); NRBC Flagged by Analyzer 0 % (0-5); Neutrophil # 3.29 X10^3/uL (2.7-7.7); Neutrophil % 59.8 % (47-70); Platelet Count 247 K/mm3 (150-450); RBC Distribution Width CV 13.4 % (11.6-14.6); RBC Distribution Width SD 47.6 fl (35.1-43.9); Red Blood Count 4.32 M/mm3 (4.6-6.2); White Blood Count 5.5 K/mm3 (4.4-11.0)
[2024-01-04 16:53] LABS: Magnesium 1.9 mg/dL (1.6-2.6)
[2024-01-04 17:17] LABS: Albumin, Serum 3.6 g/dL (3.2-5.0); Anion Gap 6 (5-15); BUN 19 mg/dL (7-18); BUN/Creat Ratio 18.6 RATIO (10-20); Calcium,Total 8.9 mg/dL (8.5-10.1); Chloride 107 mmol/L (98-107); Creatinine, Serum 1.02 mg/dL (0.70-1.30); EST Glomerular Filtration Rate 74 mL/min (>60); Est Glom Filt Rate - Afr Amer 89 mL/min (>60); Glucose 85 mg/dL (74-106); Potassium 3.9 mmol/L (3.5-5.1); Sodium Level 140 mmol/L (136-145)
--- OUTSIDE RECORDS SUMMARY | 2024-11-03 08:14 | XMS RPT_ITS ---
Author Name Auto Generated Organization [facility] Care Team Providers Care Knifeman Name Role Phone VÍCTOR HAMMER DO Attending Physician Timbo Sewell DO, VÍCTOR Primary Care Physician Mary Anne HAMMER DO, VÍCTOR Attending Physician Timbo Sewell DO, VÍCTOR Primary Care Physician Mary Anne HAMMER DO, VÍCTOR Attending Physician Unavailab jeremiah HAMMER DO, VÍCTOR Primary Care Physician Mary Anne HAMMER DO, VÍCTOR Attending Physician Unavailab Melodie KAHN, VÍCTOR Primary Care Physician Mary Anne labjeremiah HAMMER DO, VÍCTOR Attending Physician Timbo Sewell DO, VÍCTOR Primary Care Physician Mary Anne mtz PROBLEMS DATE TYPE CONDITION / CODE ATTENDING STATUS [facility] 06/15/2024 Admitting Diagnosis Essential (primary) hypertension / I10(ICD-10) VÍCTOR HAMMER DO Active [facility] 05/04/2024 Admitting Diagnosis Disorder of the skin and subcutaneous tissue, unspecified / L98.9(ICD-10) VÍCTOR HAMMER DO Active [facility] RESULTS MALBR Collected: 11/03/2024 1:27 PM Status: F Source: [facility] TYPE CODE TESTS RESULT OUT OF RANGE REFERENCE UNITS LAB CRU(LOINC) U Creatinine 36.2 mg/dL LAB MRUR(LOINC) U Microalb 24.7 mg/L LAB RMAL(LOINC) U Ratio Alb/Cre 68 High 0-30 mg/G Performed By: Mayte daniels [address] [place], [place] [address] XR SPINE LUMBAR W/OBLIQUES 4 VIEWS Observed: 06/17/2024 9:00 AM Status: F Source: [facility] ORIGINAL EXAMINATION: AP lateral both obliques 5 XRAY VIEWS OF THE LUMBAR SPINE06/17/2024 9:13 am COMPARISON: Radiographs 12/09/2018 HISTORY: ORDERING SYSTEM PROVIDED HISTORY: Reason for Exam: Pain, leg length discrepancy, FINDINGS: There are 6 non rib-bearing lumbar type vertebral bodies designated T12 through L5, similar to the earlier study. There is interval lower lumbar surgery with surgical hardware at the L3, L4 and L5 levels. No hardware loosening or other complication is seen. Lateral view shows normal vertebral body height with no acute fracture or compression deformity. There is multilevel moderate to severe disc space narrowing, endplate spurring and facet arthropathy that has increased. Disc space narrowing and endplate spurring is most prominent at L2-3. Mild L4-5 anterolisthesis has also improved. No spondylolysis on the oblique views. Symmetric SI joints. IMPRESSION: Postop changes with no hardware complication. Severe degenerative changes with progression from the earlier study. Interpreted by: Travon Zamora MD Preliminary Report By: Travon Zamora MD Electronically signed By Travon Zamora MD Dictated Date: 06/18/2024 1:47:30 PM Prelim Date: 06/18/2024 1:49:54 PM Sign Date: 06/18/2024 1:49:54 PM Ordering Provider: VÍCTOR HAMMER [facility] Collected: 06/17/2024 8:50 AM Status: F Source: [facility] TYPE CODE TESTS RESULT OUT OF RANGE REFERENCE UNITS LAB GLU(LOINC) Glucose Level 94 83-110 mg/dL LAB NA(LOINC) Sodium Level 138 136-145 mmol/L LAB K(LOINC) Potassium Level 4.2 3.5-5.1 mmol/L LAB CL(LOINC) Chloride 105 98-107 mmol/L LAB CO2(LOINC) CO2 28 23-31 mmol/L LAB EBAL(LOINC) Electrolyte Balance 5.0 4.0-15.0 mEq/L LAB BUN(LOINC) BUN 14 7-18 mg/dL LAB CRE(LOINC) Creatinine Lvl (s) 0.84 0.67-1.17 mg/dL LAB BC(LOINC) BUN/Creatinine Ratio 17 7-27 ratio LAB CA(LOINC) Calcium Lvl 9.1 8.4-10.2 mg/dL LAB PROT(LOINC) Total Protein 7.1 6.4-8.2 G/dL LAB ALB(LOINC) Albumin Level 3.8 3.4-4.8 G/dL LAB GLB(LOINC) Globulin 3.3 2.7-4.4 G/dL LAB AG(LOINC) A/G Ratio 1.2 1.1-2.5 ratio LAB BILT(LOINC) Bili Total 0.8 0.2-1.0 mg/dL Result Comment: Use of this assay is not recommended for patients undergoing treatment with eltrombopag due to the potential for falsely elevated results. LAB AP(LOINC) Alk Phos 70 40-135 U/L LAB AST(LOINC) AST/SGOT 29 10-40 U/L LAB ALT(LOINC) ALT/SGPT 37 16-63 U/L Performed By: Mayte daniels [address] [place] [id number] [facility] Collected: 8:50 AM Status: F Source: [facility] TYPE CODE TESTS RESULT OUT OF RANGE REFERENCE UNITS LAB TSH(LOINC) TSH 1.88 0.36-3.74 mcIU/mL Performed By: Mayte Gaines [address] [address] .GFR Collected: 06/17/2024 8:50 AM Status: F Source: [facility] TYPE CODE TESTS RESULT OUT OF RANGE REFERENCE UNITS LAB eGFR(LOINC) Estimated Glomerular Filtration Rate 85 ml/min/1. 73sqm Result Comment: Stages of Chronic Kidney Disease (CKD) Stage Description eGFR(ml/min/1.73 sq.m.) CKD 1 Normal kidney function or >=90 normal kindney function with possible kidney damage (ex. Proteinuria) CKD 2 Kidney damage with mild loss 60-89 of kidney function CKD 3a Mild to moderate loss of kidney 45-59 function CKD 3b Moderate to severe loss of 30-44 of kindey function CKD 4 Severe loss of kidney function 15-29 CKD 5 Kidney failure <15 Note: (go live 2024) the eGFR calculation was updated to the 2020 CKD-EPI creatinine equation without a race factor to calculate the eGFR results. Performed By: Mayte Gaines [address] [address] LIPID Collected: 06/17/2024 8:50 AM Status: F Source: [facility] TYPE CODE TESTS RESULT OUT OF RANGE REFERENCE UNITS LAB CHOL(LOINC) Cholesterol 154 0-200 mg/dL Result Comment: Cholesterol Reference Interval: Less than 200 Desirable 200-239 Borderline high risk 240 and above High risk LAB TRIG(LOINC) Triglycerides 76 0-150 mg/dL Result Comment: Triglyceride Reference Interval: Less than 150 Normal 150-199 Borderline high risk 200-499 High risk 500 or higher Very high risk LAB HD(LOINC) HDL Cholesterol 46 40-60 mg/dL LAB LDL(LOINC) LDL Cholesterol 93 0-130 mg/dL Performed By: [place] Eder daniels [address] [place], [place] [address] XR HIP BILATERAL W/PELVIS MINIMUM 5 VIEWS Observed: 06/17/2024 8:45 AM Status: F Source: [facility] ORIGINAL EXAMINATION: XR pelvis AP one view and both hips two views each side, total five views 06/17/2024 9:13 am COMPARISON: Radiographs 12/09/2018 HISTORY: ORDERING SYSTEM PROVIDED HISTORY: Reason for Exam: pain, leg length discrepancy, FINDINGS: No acute fracture, dislocation, lytic process or periosteal reaction is seen in the visualized bones and joints. No erosive type of arthritis. No periarticular soft tissue calcification. Both hips show mild osteoarthritis with acetabular marginal spurring but no significant hip joint space narrowing. This is more severe on the left. There is some deformity of the left subtrochanteric femur that is partially included but remote probably remote healed fracture. Symmetric SI joints. There is moderate right trochanteric enthesopathy and supra trochanteric ossification mildly increased. Bilateral iliac crest lateral enthesopathy also. IMPRESSION: No acute skeletal abnormality is seen. . 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 Right-sided trochanteric enthesopathy. Interpreted by: Travon Zamora MD Preliminary Report By: Travon Zamora MD Electronically signed By Travon Zamora MD Dictated Date: 06/18/2024 1:43:22 PM Prelim Date: 06/18/2024 1:45:51 PM Sign Date: 06/18/2024 1:45:51 PM Ordering Provider: VÍCTOR DOMINGUEZ Collected: 06/15/2024 4:41 PM Status: F Source: [facility] TYPE CODE TESTS RESULT OUT OF RANGE REFERENCE UNITS LAB CRU(LOINC) U Creatinine 36.1 Low 40.0-278.0 mg/dL LAB MRUR(LOINC) U Microalb 46.3 mg/L LAB RMAL(LOINC) U Ratio Alb/Cre 128 High 0-30 mg/G Performed By: Mayte daniels [address] [place], [place] [address] FINAL SURGICAL PATHOLOGY REPORT Observed : 05/04/2024 4:08 PM Status: F Source: [facility] .Pathology Reports Accession: Collected Date/Time: Received Date/Time: Pathologist: [id number] 05/04/2024 16:08 EDT 05/06/2024 09:46 EDT JACKSON TAI MD Final Surgical Pathology Report DIAGNOSIS: A. SKIN, LOWER BACK, EXCISION: - SEBORRHEIC KERATOSIS B. SKIN, CENTER OF BACK, EXCISION: - IRRITATED SEBORRHEIC KERATOSIS C. SKIN, RIGHT SHOULDER/UPPER BACK, EXCISION: - HYPERTROPHIC ACTINIC KERATOSIS CLINICAL INFORMATION: Procedure: EXCISION Preoperative diagnosis: SKIN LESION Postoperative diagnosis: SKIN LESION SPECIMEN: A LEFT LOWER BACK B CENTER BACK C RIGHT SHOULDER/UPPER BACK GROSS DESCRIPTION: All parts labelled with patient name and [id number] A. Received in formalin labeled left lower back are 4 mehta-brown sections of skin measuring 0.3 x 0.2 to 0.5 x 0.4 x 0.3 cm. The largest skin section has a raised mehta-brown irregularly-shaped area measuring 0.5 x 0.3 cm greatest dimension. Margin on the largest section is inked black and bisected. TS-1 B. Received in formalin labeled middle back is 1 mehta-brown skin punch measuring 0.5 x 0.4 x 0.3 cm greatest dimension. The outer skin surface has a dark brown irregularly-shaped area measuring 0.3 cm greatest dimension. Margin is inked black and specimen is bisected. TS-1 C. Received in formalin labeled right upper back/shoulder is 1 mehta-brown skin punch measuring 0.8 x 0.7 x 0.6 cm greatest dimension. The outer skin surface has a raised irregularly-shaped mehta-brown area measuring 0.7 x 0.5 cm greatest dimension. Margin is inked black and specimen is trisected. TS-1 Kat Vidales, Grossing [facility] Cleaner/ Dr. Declan Martin, Pathologist Performed by Kat Vidales MICROSCOPIC DESCRIPTION: The microscopic examination is performed, except in the case of Gross Only. Verified by Pathology Report verified by [facility] JACKSON TAI Sign out Date: 05/09/2024 11:36 Performing Lab: [facility], [address] [place] [address] Pathology Dept Disclaimer If ancillary studies were utilized, the following Laboratory Developed Test (LDT) disclaimer will apply: Pathology Reports Accession: Collected Date/Time: Received Date/Time: Pathologist: [id number] 05/04/2024 16:08 EDT 05/06/2024 09:46 EDT JACKSON TAI MD Disclaimer Under CLIA requirements, [facility] is qualified to perform high complexity testing. For all ancillary stains, positive and negative controls stain appropriately. Performance characteristics of immunohistochemical and chromogenic in-situ hybridization tests have been determined by [facility]. These tests are used for clinical purposes, They should not be regarded as investigational or for research. . ENCOUNTERS ADMIT/DISCHARGE ACCOUNT NUMBER ADMITTING ENCOUNTER CLASS LOC ATION SOURCE 11/03/2024/ 5 [id number] Ambulatory [facility] 06/17/2024/ 5 [id number] Ambulatory [facility]: [facility] 06/15/2024/ 5 [id number] Ambulatory [facility]: [facility] 05/04/2024/ 5 [id number] Ambulatory [facility]: [facility] 05/03/2024/ 5 [id number] Ambulatory [facility]Building: [facility] PAYERS ENCOUNTER GUARANTOR PAYER SUBSCRIBER SOURCE 11/03/2024 ANTON JONESMANDOB: [id number] [place] [address]Igo: (HP) Primary Insurance:[employer] INSCOPolicy Number: [id number] e Date:7648-04-46Nbqm Name:SHI Rebolledo [address]XU: ANTON JONESMANDOB: [id number] [place] [address]Ntd: (HP) (WP) [facility] 06/17/2024 ANTON JONESMANDOB: [id number] [place] [address]Jfq: (HP) Primary Insurance:[employer]ET[employer] INSCOPolicy Number: [id number] e Date:2949-02-04Lqde Name:NAKUL Vazquez [id number] [address]NL: ANTON JONESMANDOB: [id number] [place] [address]Msb: (HP) (WP) [facility] 06/15/2024 ANTON JONESMANDOB: [place] [address]Rdy: (HP) Primary Insurance:[employer]ET[employer] INSCOPolicy Number: [id number] e Date:0394-84-82Abaw Name:[place] [address]SD: ANTON JONESMANDOB: [id number] [place] [address]Yol: (HP) (WP) [facility] 05/04/2024 ANTON JONESMANDOB: [id number] [place] [address]Yrs: (HP) Primary Insurance:[employer] INSC[employer]olicy Number: [id number] e Date:3316-90-01Iogm Name:NAKUL Vazquez [id number] Luong [address]YB: ANTON JONESMANDOB: [id number] [place] [address]Jwp: (HP) (WP) [facility] 05/03/2024 ANTON JONESMANDOB: [place] [address]Lzo: (HP) Primary Insurance:[employer] INSCOPolicy Number: [id number] e Date:5308-08-58Xnjb Name:NAKUL Vazquez [id number] [address]WT: ANTON JONESMANDOB: [id number] [place] [address]Qsz: (HP) (WP) [facility]
== END 2024-01-28 23:59 | disposition home or self-care (01) ==
LOC: SDC 03-28 11:55
PROVIDERS: Anesthesiology; PCP Family Medicine; Referring Provider Student in an Organized Health Care Education/Training Program; Visit Provider Student in an Organized Health Care Education/Training Program
DX: Z01.818 Encounter for other preprocedural examination (principal); E03.9 Hypothyroidism, unspecified
CPT/HCPCS: 36415; 80048; 82040; 83735; 84443; 85025; 87081

== ENCOUNTER 2024-03-14 12:23 | Observation (INO) | payer MEDICARE, SELFPAY ==
--- NOTE | 2024-02-25 09:01 | EKG12_ITS ---
Test Reason : PRE OP Blood Pressure : */* mmHG Vent. Rate : 90 BPM Atrial Rate : 90 BPM P-R Int : 146 ms QRS Dur : 70 ms QT Int : 370 ms P-R-T Axes : 16 50 21 degrees QTcB Int : 452 ms Normal sinus rhythm Cannot rule out Inferior infarct , age undetermined Cannot rule out Anterior infarct , age undetermined Abnormal ECG Confirmed by Antonio Leon ([id number]), news copy editor JOON CARSON ([id number]) on 02/26/2024 5:56:38 AM Referred By: Mario Aquino Confirmed By: Antonio Leon
[2024-02-25 10:13] LABS: Absolute Lymphocyte Count 1.05 X10^3/uL (0.83-4.51); Absolute Neutrophil Count 2.7 X10^3/uL (2.0-7.7); Basophil# 0.02 X10^3/uL; Basophil% 0.5 % (0-1); Eosinophil# 0.18 X10^3/uL; Eosinophils% 4.2 % (0-5); Hematocrit 41.9 % (40-54); Hemoglobin 14.2 g/dL (13.0-16.5); Lymphocyte # 1.05 X10^3/ul (0.83-4.51); Lymphocyte % 24.5 % (19-41); Mean Corp Hgb Conc 33.9 g/dL (32-36); Mean Corpuscular Hgb 31.8 pg (27.0-32.0); Mean Corpuscular Volume 93.7 fL (80-94); Mean Platelet Vol. 10.6 fl (6.2-12.0); Monocyte# 0.36 X10^3/uL; Monocyte% 8.4 % (0-10); NRBC Flagged by Analyzer 0 % (0-5); Neutrophil # 2.66 X10^3/uL (2.7-7.7); Neutrophil % 61.9 % (47-70); Platelet Count 216 K/mm3 (150-450); RBC Distribution Width CV 13.7 % (11.6-14.6); RBC Distribution Width SD 47.9 fl (35.1-43.9); Red Blood Count 4.47 M/mm3 (4.6-6.2); White Blood Count 4.3 K/mm3 (4.4-11.0)
[2024-02-25 10:39] LABS: Anion Gap 6 (5-15); BUN 19 mg/dL (7-18); BUN/Creat Ratio 20.1 RATIO (10-20); Calcium,Total 8.9 mg/dL (8.5-10.1); Chloride 105 mmol/L (98-107); Creatinine, Serum 0.94 mg/dL (0.70-1.30); EST Glomerular Filtration Rate 81 mL/min (>60); Est Glom Filt Rate - Afr Amer 98 mL/min (>60); Glucose 144 mg/dL (74-106); Potassium 3.7 mmol/L (3.5-5.1); Sodium Level 137 mmol/L (136-145)
[2024-02-25 10:55] LABS: Magnesium 2.1 mg/dL (1.6-2.6)
--- NOTE | 2024-02-26 23:55 | PAT.ANESEVAL ---
Pre-Assessment Diagnosis/Proposed Procedure Planned Operative Procedure(s): (L) ERAS, Total Shoulder Replacement, Reverse Anesthesia History Anesthesia History - public relations manager: Anesthesia History - public relations manager Hx Hospitalization Yes: TURP 05/202302/22/24 11:29 Any Problems With Anesthesia Yes: HARD TIME WAKING 02/22/24 11:29 Cholinesterase deficiency No 02/22/24 11:29 You/Your Family Experience No 02/22/24 11:29 fever (hyperthermia) with Relationship Recent Exposure to Contagious No 05/20/23 10:47 Disease Does patient have nerve No 02/22/24 11:29 stimulator Patient instructed to have device shut off --Does patient have Pacemaker or ICD? When Was Last Pacemaker Check QUESTION #4 FULL TEXT: You/Your Family Experience fever (hyperthermia) with Anesthesia Last Oral Intake Last Oral intake: Last Oral Intake NPO since Meds taken in AM with sips of water? Meds patient instructed to take am of surgery PONV PONV - public relations manager: PONV - public relations manager Female No 02/22/24 11:29 HX of Motion Sickness No 02/22/24 11:29 HX of N/V After Surgery No 02/22/24 11:29 Non-Smoker Yes 02/22/24 11:29 Duration of Surgery greater Yes 02/22/24 11:29 than 60 minutes Number of Risk Factors 2 02/22/24 11:29 PONV Score Moderate Risk 02/22/24 11:29 Height & Weight Height & Weight: Anesthesia: Height & Weight Height 5 ft 2.99 in 05/20/23 16:07 Respiratory Assessment Respiratory Assessment - public relations manager: Respiratory Tract Infection Hx - public relations manager Hx Respiratory Tract Infection No 02/22/24 11:29 STOP Sleep Apnea STOP Sleep Apnea - public relations manager: STOP Sleep Apnea - public relations manager Hx Hypertension Yes: CONTROLLED WITH MEDS 02/22/24 11:29 Hx Sleep Apnea Yes 02/22/24 11:29 CPAP Yes 02/22/24 11:29 BIPAP No 02/22/24 11:29 Do you snore loudly (louder than talking or can be heard Do you often feel tired/ fatigued/ sleepy during daytime? Has anyone observed you stop breathing during sleep? STOP Results Positive 02/22/24 11:29 QUESTION #5 FULL TEXT : Do you snore loudly (louder than talking or can be heard through closed doors)? Tobacco Use History Tobacco Use History - public relations manager: Tobacco Use History - public relations manager Tobacco Use Smoking Status Former smoker 02/22/24 11:29 Hx Tobacco Use No 02/22/24 11:29 Years Smoking Packs Smoked per Day Smoking Cessation Date was No - quit smoking greater 02/22/24 11:29 within the last 15 years than 15 years ago Hx Smoking Cessation Date 02/16/1967 02/22/24 11:29 Hx Smoking Cessation No 02/22/24 11:29 Counseling Hematologic Medial History Hematologic Hx - public relations manager: Hematologic Medical Hx - technical documentation specialist Hx of Blood Transfusion No 02/22/24 11:29 Hx of Transfusion in last 3 No 02/22/24 11:29 Months Date of Last Transfusion (if within last 3 months) Ever experience any problems No 02/22/24 11:29 with transfusion(s)? Specify any problems Hx of Preganancy in last 3 N/A 02/22/24 11:29 Months Nurse Filling Out Transfusion SHAYLA 02/22/24 11:29 & Questions: Date: 02/22/24 02/22/24 11:29 Time: 11:31 02/22/24 11:29 Patient unable to answer at this time (ie. confused, unrespo /Reproduction History /Reproductive History - public relations manager: /Reproductive Hx- public relations manager Hx Now Gestational Age (in weeks): EDC: Hx Hx Para Hx Section SAB No 02/22/24 11:29 [facility] Medical History (Updated 02/22/24 @ 12:04 by Marianela Brothers) CPAP (continuous positive airway pressure) dependence Sleep apnea Prostate disease Loss of hearing Wears dentures Cancer Alcohol use Thyroid disease Walker as ambulation aid Arthritis Bladder disease Back pain Vertigo History of ulceration Gastric reflux Former smoker Asthma Shortness of breath on exertion History of edema History of stress test History of echocardiogram Cardiology follow-up encounter Hypertension Pain Home Medications ?Medication ?Instructions ?Recorded ?Last Taken ?Type amlodipine 5 mg tablet 5 mg PO DAILY 10/27/22 11/05/22 History aspirin 81 mg capsule 81 mg PO DAILY 10/27/22 05/09/23 History celecoxib 100 mg capsule 100 mg PO BID 10/27/22 05/19/23 History doxazosin 4 mg tablet 4 mg PO DAILY 10/27/22 05/20/23 History fenofibrate nanocrystallized 145 145 mg PO QHS 10/27/22 05/19/23 History mg tablet loratadine 10 mg tablet (Claritin) 10 mg PO DAILY 10/27/22 05/19/23 History levothyroxine 100 mcg tablet See Rx Instructions PO DAILY 05/14/23 05/20/23 History Allergy/AdvReac Type Severity Reaction Status Date / Time clopidogrel (From Plavix) Allergy Intermediate Rash Verified 02/22/24 11:23 hydrocodone (From [place]) Allergy Intermediate Rash Verified 02/22/24 11:23 oxycodone Allergy Intermediate Rash Verified 02/22/24 11:23 Surgical History Hx of transurethral resection of prostate History of cardiac catheterization History of coronary artery stent placement Hx of right cataract extraction Hx of left cataract extraction Hx of detached retina repair History of carpal tunnel surgery of right wrist History of carpal tunnel surgery of left wrist Hx of elbow surgery Hx of rotator cuff surgery Hx of foot surgery History of fusion of cervical spine History of lumbar fusion History of lumbar discectomy Hx of total knee arthroplasty Hx of transurethral destruction of bladder lesion Social History Smoking Status: Former smoker Audit: Pertinent Findings Pertinent Findings EKG Perinent findings: February 25, 2024. Normal sinus rhythm. Cannot rule out inferior infarct. Cannot rule out anterior infarct. No change from EKG of May 14, 2023 May 14, 2023. Normal sinus rhythm. Consult pertinent findings: November 19, 2023. [employer]. 1. Coronary artery disease in [place] artery. This is stable no anginal symptoms are noted. In 2004 2 drug-eluting stents were placed in the mid and early distal LAD. Recent heart cath has shown patent stents. 2. Hypertension?controlled 3. Nonrheumatic mitral regurgitation-recent echo shows mild MR. 4. Aortic valve disease. Most recent echo shows mild aortic stenosis. Recommendation Anesthesia Recommendation Anesthesia recommendation: OPTIMIZED for anesthesia
[2024-03-14] VITALS (17 sets, daily range): BP systolic 104–153; BP diastolic 55–84; PULSE 70–88; RESP 16–18; TEMP 36.1–37.2; O2SAT 82–99; BMI 40.6
[2024-03-14] MEDS: 0.9% Normal Saline (1000mL) 1,000 ML 15 ML IV (08:52)
[2024-03-14] MEDS: Magnesium 1 GM over 15 mins IV (08:52)
--- NOTE | 2024-03-14 08:53 | PCM.PRE.AN2 ---
ASA Classification* ASA Classification ASA Classification: 4 Assessment & Plan Anesthesia* Anesthesia Assessment Anesthesia Assessment: Discussed sedation and/or anesthesia options, risks, benefits, and alternatives with patient/parents/legal guardian/POA. Questions invited. The patient/parents/legal guardian/POA seems to understand and agrees to proceed with anesthesia plan. Reviewed the physical assessment, medical history, allergy history and patient home medications list prior to surgery/procedure/anesthetic and documented any changes. Performed airway and anesthesia risk assessments. Anesthesia Type Anesthesia Type: MAC Anesthesia Focused Assessment* Airway Assessment Mouth opens: >3 cm Mallampati Score: III Teeth Condition: Dentures Neck Range of motion (ROM): Limited ROM Focused Labs Anesthesia Preop lab: CBC WBC 4.3 K/mm3 (4.4-11.0) L 02/25/24 09:18 RBC 4.47 M/mm3 (4.6-6.2) L 02/25/24 09:18 Hgb 14.2 g/dL (13.0-16.5) 02/25/24 09:18 Hct 41.9 % (40-54) 02/25/24 09:18 Plt Count 216 K/mm3 (150-450) 02/25/24 09:18 CHEMISTRY Potassium 3.7 mmol/L (3.5-5.1) 02/25/24 09:18 Sodium 137 mmol/L (136-145) 02/25/24 09:18 Magnesium 2.1 mg/dL (1.6-2.6) 02/25/24 09:18 BUN 19 mg/dL (7-18) H 02/25/24 09:18 Creatinine 0.94 mg/dL (0.70-1.30) 02/25/24 09:18 Glucose 144 mg/dL (74-106) H 02/25/24 09:18 POC Glucose 164 mg/dL (74-106) H 03/14/24 09:02 TSH 1.410 uIU/mL (0.358-3.740) 01/04/24 14:33 COAG PT 13.8 SECONDS (11.7-14.9) 10/30/22 10:48 Pre-Assessment Diagnosis/Proposed Procedure Planned Operative Procedure(s): (L) ERAS, Total Shoulder Replacement, Reverse Anesthesia History Anesthesia History - air deodorizer servicer: Anesthesia History - air deodorizer servicer Hx Hospitalization Yes: TURP 05/202302/22/24 11:29 Any Problems With Anesthesia Yes: HARD TIME WAKING 02/22/24 11:29 Cholinesterase deficiency No 02/22/24 11:29 You/Your Family Experience No 02/22/24 11:29 fever (hyperthermia) with Relationship Recent Exposure to Contagious No 05/20/23 10:47 Disease Does patient have nerve No 02/22/24 11:29 stimulator Patient instructed to have device shut off --Does patient have Pacemaker or ICD? When Was Last Pacemaker Check QUESTION #4 FULL TEXT: You/Your Family Experience fever (hyperthermia) with Anesthesia Last Oral Intake Last Oral intake: Last Oral Intake NPO since Meds taken in AM with sips of water? Meds patient instructed to take am of surgery PONV PONV - air deodorizer servicer: PONV - air deodorizer servicer Female No 02/22/24 11:29 HX of Motion Sickness No 02/22/24 11:29 HX of N/V After Surgery No 02/22/24 11:29 Non-Smoker Yes 02/22/24 11:29 Duration of Surgery greater Yes 02/22/24 11:29 than 60 minutes Number of Risk Factors 2 02/22/24 11:29 PONV Score Moderate Risk 02/22/24 11:29 Height & Weight Height & Weight: Anesthesia: Height & Weight Height 5 ft 2.99 in 05/20/23 16:07 Respiratory Assessment Respiratory Assessment - air deodorizer servicer: Respiratory Tract Infection Hx - air deodorizer servicer Hx Respiratory Tract Infection No 02/22/24 11:29 STOP Sleep Apnea STOP Sleep Apnea - air deodorizer servicer: STOP Sleep Apnea - air deodorizer servicer Hx Hypertension Yes: CONTROLLED WITH MEDS 02/22/24 11:29 Hx Sleep Apnea Yes 02/22/24 11:29 CPAP Yes 02/22/24 11:29 BIPAP No 02/22/24 11:29 Do you snore loudly (louder than talking or can be heard Do you often feel tired/ fatigued/ sleepy during daytime? Has anyone observed you stop breathing during sleep? STOP Results Positive 02/22/24 11:29 QUESTION #5 FULL TEXT : Do you snore loudly (louder than talking or can be heard through closed doors)? 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 Specify any problems Hx of Preganancy in last 3 N/A 02/22/24 11:29 Months Nurse Filling Out Transfusion MGRIFFITH 02/22/24 11:29 & Questions: Date: 02/22/24 02/22/24 11:29 Time: 11:31 02/22/24 11:29 Patient unable to answer at this time (ie. confused, unrespo /Reproduction History /Reproductive History - air deodorizer servicer: /Reproductive Hx- air deodorizer servicer Hx Now Gestational Age (in weeks): EDC: Hx Hx Para Hx Section SAB No 02/22/24 11:29 Active Medications Active Medications: Current Medications Generic Name Dose Route Start Last Admin Trade Name Freq PRN Reason Stop Dose Admin Acetaminophen 1,000 mg 03/14/24 13:15 Acetaminophen 500 Mg Tablet PO 03/14/24 13:16 X1 ONE Celecoxib 400 mg 03/14/24 13:15 Celecoxib 200 Mg Capsule PO 03/14/24 13:16 X1 ONE Dexamethasone Sodium Phosphate 10 mg 03/14/24 13:15 Dexamethasone 10 Mg/Ml Vial IV 03/14/24 13:16 X1 ONE Gabapentin 600 mg 03/14/24 13:15 Gabapentin 600 Mg Tablet PO 03/14/24 13:16 X1 ONE Cefazolin Sodium 2 gm/ N/A 20 mls @ 400 mls/hr 03/14/24 13:15 IV 03/14/24 13:17 PREOP ONE Tranexamic Acid 1,000 mg/ 110 mls @ 660 mls/hr 03/14/24 13:15 Sodium Chloride IV 03/14/24 13:24 X1 ONE Lactated Ringer's 1,000 mls @ 125 mls/hr 03/14/24 13:15 IV 03/14/24 21:14 .Q8H ALLEGRA Magnesium Sulfate 1 gm/ 102 mls @ 408 mls/hr 03/14/24 13:15 Dextrose IV 03/14/24 13:29 X1 ONE Sodium Chloride 1,000 mls @ 15 mls/hr 03/14/24 08:25 IV 03/19/24 21:44 .Q48H [facility] Protocol Insulin Human Lispro 1 - 6 unit 03/14/24 13:15 Insulin Lispro 100 Unit/Ml Insuln.Pen SC Q4H PRN PRN BG>/= 180, SEE PROTOCOL Protocol PFSH Medical History (Updated 03/14/24 @ 16:[address] Shoaib Meyers, DO) CPAP (continuous positive airway pressure) dependence Sleep apnea Prostate disease Loss of hearing Wears dentures Cancer Alcohol use Thyroid disease Walker as ambulation aid Arthritis Bladder disease Back pain Vertigo History of ulceration Gastric reflux Former smoker Asthma Shortness of breath on exertion History of edema History of stress test History of echocardiogram Cardiology follow-up encounter Hypertension Pain Home Medications ?Medication ?Instructions ?Recorded ?Last Taken ?Type amlodipine 5 mg tablet 5 mg PO DAILY 10/27/22 03/14/24 History aspirin 81 mg capsule 81 mg PO DAILY 10/27/22 03/13/24 History celecoxib 100 mg capsule 100 mg PO BID 10/27/22 05/19/23 History doxazosin 4 mg tablet 4 mg PO DAILY 10/27/22 03/14/24 History fenofibrate nanocrystallized 145 145 mg PO QHS 10/27/22 03/13/24 History mg tablet loratadine 10 mg tablet (Claritin) 10 mg PO DAILY 10/27/22 03/13/24 History levothyroxine 100 mcg tablet See Rx Instructions PO DAILY 05/14/23 03/14/24 History Allergy/AdvReac Type Severity Reaction Status Date / Time clopidogrel (From Plavix) Allergy Intermediate Rash Verified 03/14/24 08:42 hydrocodone (From Artemas) Allergy Intermediate Rash Verified 03/14/24 09:10 oxycodone Allergy Intermediate Rash Verified 03/14/24 09:10 Surgical History Hx of transurethral resection of prostate History of cardiac catheterization History of coronary artery stent placement Hx of right cataract extraction Hx of left cataract extraction Hx of detached retina repair History of carpal tunnel surgery of right wrist History of carpal tunnel surgery of left wrist Hx of elbow surgery Hx of rotator cuff surgery Hx of foot surgery History of fusion of cervical spine History of lumbar fusion History of lumbar discectomy Hx of total knee arthroplasty Hx of transurethral destruction of bladder lesion Social History Smoking Status: Former smoker Review of Systems (Anesthesia) ROS Narrative System reviewed and no additional complaints, except as documented.
[2024-03-14] MEDS: Celecoxib 200 MG Capsule 400 MG PO (08:54)
[2024-03-14] MEDS: Gabapentin 600 MG Tablet PO (08:54)
[2024-03-14] MEDS: Acetaminophen 500 MG Tablet 1000 MG PO ×3 (08:54→22:09)
--- NOTE | 2024-03-14 09:32 | PCM.PRE.AN2 ---
ASA Classification* ASA Classification ASA Classification: 3 Assessment & Plan Anesthesia* Anesthesia Assessment Anesthesia Assessment: Discussed sedation and/or anesthesia options, risks, benefits, and alternatives with patient/parents/legal guardian/POA. Questions invited. The patient/parents/legal guardian/POA seems to understand and agrees to proceed with anesthesia plan. Reviewed the physical assessment, medical history, allergy history and patient home medications list prior to surgery/procedure/anesthetic and documented any changes. Performed airway and anesthesia risk assessments. Anesthesia Type Anesthesia Type: General and Block (Consent obtained for shoulder block) History Source History Obtained from:: Patient and Chart Anesthesia Focused Assessment* Temperature: 97.8 F Pulse Rate: 71 Blood Pressure: 153/74 Respiratory Rate: 17 Pulse Ox: 98 Oxygen Delivery Method: Room Air Airway Assessment Mouth opens: >3 cm Mallampati Score: III Teeth Condition: Dentures Neck Range of motion (ROM): Limited ROM Focused Labs Anesthesia Preop lab: CBC WBC 4.3 K/mm3 (4.4-11.0) L 02/25/24 09:18 RBC 4.47 M/mm3 (4.6-6.2) L 02/25/24 09:18 Hgb 14.2 g/dL (13.0-16.5) 02/25/24 09:18 Hct 41.9 % (40-54) 02/25/24 09:18 Plt Count 216 K/mm3 (150-450) 02/25/24 09:18 CHEMISTRY Potassium 3.7 mmol/L (3.5-5.1) 02/25/24 09:18 Sodium 137 mmol/L (136-145) 02/25/24 09:18 Magnesium 2.1 mg/dL (1.6-2.6) 02/25/24 09:18 BUN 19 mg/dL (7-18) H 02/25/24 09:18 Creatinine 0.94 mg/dL (0.70-1.30) 02/25/24 09:18 Glucose 144 mg/dL (74-106) H 02/25/24 09:18 TSH 1.410 uIU/mL (0.358-3.740) 01/04/24 14:33 COAG PT 13.8 SECONDS (11.7-14.9) 10/30/22 10:48 Pre-Assessment Diagnosis/Proposed Procedure Planned Operative Procedure(s): (L) ERAS, Total Shoulder Replacement, Reverse Anesthesia History Anesthesia History - ware cleaner: Anesthesia History - ware cleaner Hx Hospitalization Yes: [facility]O 05/202302/22/24 11:29 Any Problems With Anesthesia Yes: HARD TIME WAKING 02/22/24 11:29 Cholinesterase deficiency No 02/22/24 11:29 You/Your Family Experience No 02/22/24 11:29 fever (hyperthermia) with Relationship Recent Exposure to Contagious No 03/14/24 08:57 Disease Does patient have nerve No 02/22/24 11:29 stimulator Patient instructed to have device shut off --Does patient have Pacemaker No 03/14/24 08:57 or ICD? When Was Last Pacemaker Check QUESTION #4 FULL TEXT: You/Your Family Experience fever (hyperthermia) with Anesthesia Last Oral Intake Last Oral intake: Last Oral Intake NPO since 06:30 03/14/24 08:57 Meds taken in AM with sips of Yes 03/14/24 08:57 water? Meds patient instructed to see home med list 03/14/24 08:57 take am of surgery PONV PONV - ware cleaner: PONV - ware cleaner Female No 02/22/24 11:29 HX of Motion Sickness No 02/22/24 11:29 HX of N/V After Surgery No 02/22/24 11:29 Non-Smoker Yes 02/22/24 11:29 Duration of Surgery greater Yes 02/22/24 11:29 than 60 minutes Number of Risk Factors 2 02/22/24 11:29 PONV Score Moderate Risk 02/22/24 11:29 Height & Weight Height & Weight: Anesthesia: Height & Weight Height 5 ft 3 in 03/14/24 08:57 Weight: 104 kg 03/14/24 08:57 Body Mass Index (BMI) 40.6 03/14/24 08:57 Respiratory Assessment Respiratory Assessment - ware cleaner: Respiratory Tract Infection Hx - ware cleaner Hx Respiratory Tract Infection No 02/22/24 11:29 STOP Sleep Apnea STOP Sleep Apnea - ware cleaner: STOP Sleep Apnea - ware cleaner Hx Hypertension Yes: CONTROLLED WITH MEDS 02/22/24 11:29 Hx Sleep Apnea Yes 02/22/24 11:29 CPAP Yes 02/22/24 11:29 BIPAP No 02/22/24 11:29 Do you snore loudly (louder than talking or can be heard Do you often feel tired/ fatigued/ sleepy during daytime? Has anyone observed you stop breathing during sleep? STOP Results Positive 02/22/24 11:29 QUESTION #5 FULL TEXT : Do you snore loudly (louder than talking or can be heard through closed doors)? 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 Specify any problems Hx of Preganancy in last 3 N/A 02/22/24 11:29 Months Nurse Filling Out Transfusion MGRIANTONINOITH 02/22/24 11:29 & Questions: Date: 02/22/24 02/22/24 11:29 Time: 11:31 02/22/24 11:29 Patient unable to answer at this time (ie. confused, unrespo /Reproduction History /Reproductive History - ware cleaner: /Reproductive Hx- ware cleaner Hx Now Gestational Age (in weeks): EDC: Hx Hx Para Hx Section SAB No 02/22/24 11:29 Active Medications Active Medications: Current Medications Generic Name Dose Route Start Last Admin Trade Name Freq PRN Reason Stop Dose Admin Acetaminophen 1,000 mg 03/14/24 13:15 03/14/24 08:54 Acetaminophen 500 Mg Tablet PO 03/14/24 13:16 1,000 mg X1 ONE Administration Celecoxib 400 mg 03/14/24 13:15 03/14/24 08:54 Celecoxib 200 Mg Capsule PO 03/14/24 13:16 400 mg X1 ONE Administration Dexamethasone Sodium Phosphate 10 mg 03/14/24 13:15 Dexamethasone 10 Mg/Ml Vial IV 03/14/24 13:16 X1 ONE Gabapentin 600 mg 03/14/24 13:15 03/14/24 08:54 Gabapentin 600 Mg Tablet PO 03/14/24 13:16 600 mg X1 ONE Administration Cefazolin Sodium 2 gm/ N/A 20 mls @ 400 mls/hr 03/14/24 13:15 IV 03/14/24 13:17 PREOP ONE Tranexamic Acid 1,000 mg/ 110 mls @ 660 mls/hr 03/14/24 13:15 Sodium Chloride IV 03/14/24 13:24 X1 ONE Lactated Ringer's 1,000 mls @ 125 mls/hr 03/14/24 13:15 IV 03/14/24 21:14 .Q8H ALLEGRA Magnesium Sulfate 1 gm/ 102 mls @ 408 mls/hr 03/14/24 13:15 03/14/24 08:52 Dextrose IV 03/14/24 13:29 408 mls/hr X1 ONE Administration Sodium Chloride 1,000 mls @ 15 mls/hr 03/14/24 08:25 03/14/24 08:52 IV 03/19/24 21:44 15 mls/hr .Q48H ALLEGRA Administration Protocol Insulin Human Lispro 1 - 6 unit 03/14/24 13:15 Insulin Lispro 100 Unit/Ml Insuln.Pen SC Q4H PRN PRN BG>/= 180, SEE PROTOCOL Protocol PFSH Medical History CPAP (continuous positive airway pressure) dependence Sleep apnea Prostate disease Loss of hearing Wears dentures Cancer Alcohol use Thyroid disease Walker as ambulation aid Arthritis Bladder disease Back pain Vertigo History of ulceration Gastric reflux Former smoker Asthma Shortness of breath on exertion History of edema History of stress test History of echocardiogram Cardiology follow-up encounter Hypertension Pain Home Medications ?Medication ?Instructions ?Recorded ?Last Taken ?Type amlodipine 5 mg tablet 5 mg PO DAILY 10/27/22 03/14/24 History aspirin 81 mg capsule 81 mg PO DAILY 10/27/22 03/13/24 History celecoxib 100 mg capsule 100 mg PO BID 10/27/22 05/19/23 History doxazosin 4 mg tablet 4 mg PO DAILY 10/27/22 03/14/24 History fenofibrate nanocrystallized 145 145 mg PO QHS 10/27/22 03/13/24 History mg tablet loratadine 10 mg tablet (Claritin) 10 mg PO DAILY 10/27/22 03/13/24 History levothyroxine 100 mcg tablet See Rx Instructions PO DAILY 05/14/23 03/14/24 History Allergy/AdvReac Type Severity Reaction Status Date / Time clopidogrel (From Plavix) Allergy Intermediate Rash Verified 03/14/24 08:42 hydrocodone (From [place]) Allergy Intermediate Rash Verified 03/14/24 09:10 oxycodone Allergy Intermediate Rash Verified 03/14/24 09:10 Surgical History Hx of transurethral resection of prostate History of cardiac catheterization History of coronary artery stent placement Hx of right cataract extraction Hx of left cataract extraction Hx of detached retina repair History of carpal tunnel surgery of right wrist History of carpal tunnel surgery of left wrist Hx of elbow surgery Hx of rotator cuff surgery Hx of foot surgery History of fusion of cervical spine History of lumbar fusion History of lumbar discectomy Hx of total knee arthroplasty Hx of transurethral destruction of bladder lesion Social History Smoking Status: Former smoker Review of Systems (Anesthesia) ROS Narrative System reviewed and no additional complaints, except as documented.
[2024-03-14 10:30] LABS: Bedside Glucose 164 mg/dL (74-106)
--- NOTE | 2024-03-14 10:30 | SHO_PTH ---
PATIENT: ANTON MENDOZA LOC: [facility] U#:[id number] AGE/SX: 84/M ROOM: [facility] RE03/14/[address]: Dr. Mario Aquino DO : 1940 BED: 1 DIS: 03/15/2024 SPEC #: [id number] RECD: 03/14/24 18:07 STATUS: DARON SUE #: [id number] MARIA TERESA: 03/14/24 10:[address]: Mario Aquino DEPT: SURGICAL PATHOLOGY RECD BY: Em Foy ENTERED: 03/15/24 09:46 SP TYPE: HUMERUS OTHR DR: DO Dr. Azul Roman, DO Dr. Alvarez Alonso, Tissues: Humerus, NOS Procedures: Decalcification bone/plaque Surgery Specimen Level IV HEADER OPERATION: Total shoulder replacement, reverse PRE-OP DIAGNOSIS: Severe glenohumeral osteoarthritis TISSUE SUBMITTED: Left humeral head MICROSCOPIC DIAGNOSIS Bone and tissue left shoulder, total shoulder replacement/resection: Thinned and cracked articular cartilage. Thickened subchondral bone. WILLIAM. 03/18/2024 MICROSCOPIC DESCRIPTION Slides are reviewed. GROSS DESCRIPTION Received is one container labeled with the patient's name and designated bone and soft tissue. The specimen consists of a humeral head measuring 4.5 x 5 x 2.5 cm. The articular surface shows areas of erosion, eburnation and osteophyte formation. No soft tissue is identified. In[employer] sections are submitted in two cassettes after decalcification. / SJ: 03/15/2024 TC:5 CPT: 79107, 98042
[2024-03-14] MEDS: dexAMETHasone 10 MG/ML Vial IV (10:45)
[2024-03-14] MEDS: TXA 1000mg in NS100 100ml (IVPB at Incision) 660 MG IV (10:45)
[2024-03-14] MEDS: Cefazolin 2 GM in Syringe 10 ML IV (10:45)
--- NOTE | 2024-03-14 12:25 | OP.PCM_ITS ---
Operative Report (Standard) Operative Information Date of Procedure: 03/14/24 Pre-Operative Diagnosis: Left shoulder rotator cuff tear arthropathy Post-Operative Diagnosis: Left shoulder rotator cuff tear arthropathy Surgery/Procedure Performed: Left reverse total shoulder arthroplasty filter washer: Yes Leadite Worker: Shelly Gonzales Tasks completed by bilingual administrative assistant: Opening & closing, Implanting device, Hemostasis: Electrocautery and Retracting Type of Anesthesia: General/Regional RN Documented Start/Stop Times: Operation Date: 03/14/24 10:30 Case Time Into Pre-Op 03/14/24 08:24 Out of Pre-Op 03/14/24 10:10 Anesthesia Start 03/14/24 10:34 Into Room 03/14/24 10:34 Procedure Start 03/14/24 11:05 Procedure End 03/14/24 12:15 Procedure Start Time: 11:05 Procedure Stop Time: 12:15 Select all DRAINS/GRAFTS/IMPLANTS that apply: Implanted device Implanted device details: Tornier Aequalis PerFORM+ reversed baseplate 29 mm diameter +6 mm lateralization, standard glenosphere cobalt chrome 42 mm diameter, Tornier perform inlay stem size #3, + 3 mm retentive size number 3 42 mm diameter polyethylene insert, short central post and peripheral screws x4. Estimated Blood Loss: 50 cc Specimen collected: Yes Description of specimen(s) removed: Left humeral head Description of surgery: Patient arrived to [facility] morning of the procedure and was greeted by the same day surgery staff. Prior to his procedure, I greeted the patient in the preoperative holding area I identified the patient by name, record number, and date of . Informed consent was confirmed. The operative extremity was marked. All questions were answered to patient satisfaction. An interscalene block was administered prior to procedure by anesthesia staff for postoperative and intraoperative analgesia. At time of his procedure, patient was brought to the operative suite and positioned supine on a standard table with a beachchair attachment. General anesthesia was induced after all bony prominences were well-padded. Endotracheal tube was placed. After adequate anesthesia and securing the tube, we prepared the patient to be positioned in the beachchair position. A well- padded head chef was applied. The nonoperative extremity was placed in a well arm larsen. He was then brought into the beachchair position after we confirmed an appropriate blood pressure. We then spun the bed 45 degrees. The operative extremity was then prepared. In the butterfly wing of the bed was removed and a well-padded torso strap was applied to secure the patient to the bed. The operative extremity was now free. We then prepped and draped the right upper extremity in normal, sterile orthopedic fashion. We then performed a timeout with all parties in attendance in agreement with the side, site, and operation be performed. 2 g Ancef was administered prior to incision by anesthesia staff, as well as 1 g TXA IV. No concerns were voiced and we elected to proceed. I first marked a standard deltopectoral incision just lateral to the coracoid process in line with the long axis of the humerus. Skin was sharply incised with 10 blade scalpel. I then dissected bluntly through the subcutaneous layers and found the fat stripe between the deltoid and pectoralis major. The cephalic vein was then identified and protected. It was retracted laterally with the deltoid. I then bluntly dissected underneath the deltoid with a Jc elevator. Belkis retractor was placed. The upper 1 cm of the pectoralis major was releas ed. I then identified the long head of the biceps tendon in the intertubercular groove. This was tenodesed in situ with #2 FiberWire. I then amputated the biceps proximal to the tenodesis site and followed the tendon to the supraglenoid tubercle where it was amputated. This identified the lesser and greater tuberosities. The supraspinatus was completely torn and retracted with an exposed greater tuberosity. I then performed a subscapularis peel while rotating the humerus externally. I tagged the subscapularis for possible repair later with a tagging suture. Humeral head was then dislocated anteriorly. Appropriate access to the humeral head was confirmed. I then subluxed the humeral head posteriorly with a Fukuda retractor placed around the posterior lip of the glenoid. Inferior capsule was tension. I was able to palpate the axillary nerve. Inferior capsule was then released to the 4 o'clock position of the glenoid face. 3 sided subscapularis release was performed with Bovie cautery. I then remove the Fukuda retractor and redislocated the shoulder anteriorly. I then made a anatomic neck cut of the cartilaginous surface of the humeral head. Sizing plate for a size # 3 stem was utilized to determine appropriate reaming size. A central pin was placed engaging the lateral cortex of the humerus. A size # 3 reamer was used to ream the humeral metaphysis and prepare for the inlay stem. A canal finding reamer was utilized prior to sequential broaching to a size # 3 short stem with excellent rotational and axial purchase in the humerus. I remove the broach handle left the size # [address] I then subluxed the humerus posterior to the glenoid. I then placed retractors around the posterior and anterior glenoid to expose the glenoid. Glenoid labrum was removed with Bovie cautery protecting the axillary nerve. We then used the custom guide from [employer] to position our centering pin, exiting approximately 25 mm from the joint surface along the anterior scapula. Guide was removed and pin was analyzed and compared to preoperative planning. It appeared to be in appropriate position. The Nautilus shaped reamer was then placed over top of the centering pin. I reamed a flat surface of the glenoid. We then removed the reamer and used the cannulated drill for the short central post. Post and baseplate was assembled on the back table. We then inserted the baseplate and central post the assembled baseplate to an appropriate depth with good press-fit purchase. A Argyle was used to confirm depth. Cortical screws then were placed in the peripheral holes with good purchase. The baseplate had excellent purchase and the entire scapula would rotate with rotation of the baseplate. We then impacted the 42 mm glenosphere with a standard eccentricity and tightened the locking screw mechanism. We then removed retractors and turned our attention back to the humerus. I placed a standard +3 millimeters retentive polyethylene insert. I then reduced the shoulder. There was excellent range of motion and stability in all planes of motion. We selected this as our final size. We removed trials from the humerus after final dislocation. I copiously irrigated the canal. Broach was placed on hand and then impacted to an appropriate depth. Final + 3 mm retentive polyethylene insert was placed. Final reduction was then performed. The subscapularis was then identified with a tagging suture. Repair would have been likely under undue tension and likely failed. I elected to not perform a subscapularis repair. We then copiously irrigated the wound with sterile Betadine and normal saline solution. We reapproximated the interval with 0 Vicryl suture. Subcutaneous layers were reapproximated with 2 -0 Vicryl suture. Skin was finally running V- Loc 3-0 Monocryl suture and Dermabond. A sterile silver Mepilex dressing was applied. Patient was then placed in an ultra sling. Patient tolerated procedure well without complication. He was positioned back in the supine position extubated in the operative suite. He was transferred to the rmastic and subsequently to PACU in stable condition. Need for skilled magistrate assistant: Shelly Gonzales PA-C was critical to the outcome of the case. During the course of the procedure the physician magistrate assistant played a vital role. Her intimate knowledge of my steps in the procedure aided in safe and expedient completion of the procedure. The PA played a vital role in positioning particularly in obtaining the appropriate positioning. The PA was also vital in the retraction of soft tissues during the exposure and protecting vital structures. The PA was also vital and protecting soft tissues during times of bony cuts. She also played a vital role in closure with my direct supervision. The PA was also important during reduction and dislocation of the joint and trials intraoperatively. Intraoperative medications: 2 g Ancef IV, 1 g TXA IV x2 Post Operative Plan: Weightbearing: Nonweightbearing left upper extremity, okay for pendulums. Range of motion of wrist elbow and hand as tolerated. Antibiotics: 2 g Ancef IV prior to incision, 24 hours IV antibiotics postoperatively DVT Prophylaxis: Aspirin enteric-coated 81 mg twice daily starting tomorrow Martinez: None Dressing: Maintain silver dressing days. Okay to shower dressing on started on day 4 X-Rays: 2 weeks postop in the office Pain Medication: Oxycodone Rx upon discharge Follow-up: 2 weeks post-operatively with me in the office Surgical Findings: Left shoulder cuff tear arthropathy changes. Stable following final implantation Complications Complications: No Admit VTE Documentation VTE Present on Admission: No VTE Mechan Device Prophylaxis: SCD's VTE Pharm Prophylaxis ordered?: Yes
--- NOTE | 2024-03-14 12:37 | PCM.POST.ANE ---
Anesthesia: Postop Eval I Current Vital Signs Temperature: 97 F Pulse Rate: 85 Blood Pressure: 123/59 Respiratory Rate: 16 Pulse Ox: 97 Assessment Airway patent: Yes Spontaneous unlabored respirations: Yes nausea: No Vomiting: No Anesthesia Complication: No Fluid Hydration Crystalloid volume administer (ml): 1,000 Total IV fluid infused: 1,000 Progress Note Anesthesia document: Postop Eval 1 completed: Yes
--- NOTE | 2024-03-14 12:40 | RAD_ITS ---
INDICATION: post op -- AP and Lateral X-Ray of operative shoulder in PACU EXAMINATION/TECHNIQUE: X-RAY - LEFT XR Shoulder Min 2 Views 2 VIEWS COMPARISON: No relevant prior comparison study available FINDINGS: BONES: Surgical hardware humerus and glenoid components of the shoulder prosthesis appear well situated in anatomic alignment. No fracture demonstrated. JOINTS: No dislocation. SOFT TISSUES: Air in the soft tissues related to surgery.. RAD/Shoulder min 2 Views IMPRESSION: Postop shoulder arthroplasty in anatomic alignment. Electronically Signed: Meme Baxter MD at 7:55 EST ,
[2024-03-14] MEDS: 0.9% Normal Saline (1000mL) 1,000 ML 999 ML IV (12:58)
--- NOTE | 2024-03-14 13:26 | POSTOPAN2_ITS ---
Anesthesia Postop Eval I Sum Postop Eval Completion status Anesthesia document: Postop Eval 1 completed: Yes Anesthesia Postop Eval I Summary Anesthesia Postop Eval I Summary: Anesthesia Postop Eval I: Assessment Summary Airway patent Yes 03/14/24 12:37 [email or web address] Spontaneous unlabored Yes 03/14/24 12:37 [email or web address] respirations Mental status nausea No 03/14/24 12:37 [email or web address] Vomiting No 03/14/24 12:37 [email or web address] Anesthesia Postop Eval I: Fluid Summary Crystalloid volume administer 1,000 03/14/24 12:37 [email or web address] (ml) Colloids volume administered ( ml) Blood Product volume administered (ml) Total IV fluid infused 1,000 03/14/24 12:37 [email or web address] Anesthesia Postop Eval I: Summary Notes Anesthesia Complication No 03/14/24 12:37 [email or web address] Anesthesia Complication Comment: Post-operative progress note Anesthesia: Postop Eval II Evaluation Mental status: Awake Pain Level: 0 nausea: No Vomiting: No Complications Anesthesia Complication: No
--- NOTE | 2024-03-14 13:26 | PCM.POSTANE2 ---
Anesthesia Postop Eval I Sum Postop Eval Completion status Anesthesia document: Postop Eval 1 completed: Yes Anesthesia Postop Eval I Summary Anesthesia Postop Eval I Summary: Anesthesia Postop Eval I: Assessment Summary Airway patent Yes 03/14/24 12:37 CROP GRAIN OR LIVESTOCK FARM MANAGER.[email or web address] Spontaneous unlabored Yes 03/14/24 12:37 CROP GRAIN OR LIVESTOCK FARM MANAGER.[email or web address] respirations Mental status nausea No 03/14/24 12:37 CROP GRAIN OR LIVESTOCK FARM MANAGER.[email or web address] Vomiting No 03/14/24 12:37 CROP GRAIN OR LIVESTOCK FARM MANAGER.TNES Anesthesia Postop Eval I: Fluid Summary Crystalloid volume administer 1,000 03/14/24 12:37 CROP GRAIN OR LIVESTOCK FARM MANAGER.TNES (ml) Colloids volume administered ( ml) Blood Product volume administered (ml) Total IV fluid infused 1,000 03/14/24 12:37 CROP GRAIN OR LIVESTOCK FARM MANAGER.TNES Anesthesia Postop Eval I: Summary Notes Anesthesia Complication No 03/14/24 12:37 CROP GRAIN OR LIVESTOCK FARM MANAGER.TNES Anesthesia Complication Comment: Post-operative progress note Anesthesia: Postop Eval II Evaluation Mental status: Awake Pain Level: 0 nausea: No Vomiting: No Complications Anesthesia Complication: No
--- NOTE | 2024-03-14 15:02 | PCM.CONS.GEN ---
Assessment & Plan Assessment/Plan (1) Rotator cuff tear arthropathy of left shoulder: (2) Hypertension: PLAN: Plan Patient is an 84-year-old male who presented [facility] on 03/14/2024 for planned orthopedic procedure. Medicine consulted postoperatively for medical management. 1. Left shoulder rotator cuff tear ? Orthopedic surgery primary. S/p left reverse total shoulder arthroplasty on 03/[address] Aquino. Tolerated procedure well, no intraoperative complications. Pain management per orthopedics. PT/OT/case management consulted. Follow-up a.m. labs. Per patient, tentatively planning for discharge home sometime on 03/15. 2. Mild chronic debility ? Lives at home alone, uses walker for ambulation. States he is able to do ADLs for himself without issue. Therapy and case management consulted as above. 3. History of CAD with stenting, hypertension, hyperlipidemia ? Remote history of stenting x 2 back in 2004. Blood pressure controlled postoperatively. Continue home aspirin, amlodipine and fenofibrate. 4. Hypothyroidism ? Last TSH in December normal. Continue home Synthroid. 5. History of bladder cancer s/p resection, history of enlarged prostate s/p TURP ? Continue home doxazosin. 6. Class III obesity ? BMI 40 on admit. Complicates hospital course, care and prognosis. Total clinical time spent by myself addressing the patient's medical issues, reviewing all the data, and collaborating with patient's care team: 35 minutes. HPI Consult Data Date of Consult: 03/14/24 HPI Narrative Reason for Consultation: Postoperative medical management HPI Narrative: ANTON MENDOZA, is a 84 M who presented to [facility] on 03/14/2024 for planned orthopedic procedure. Medicine consulted postoperatively for medical management. Saw patient at bedside this afternoon after his procedure. Patient had a left reverse total shoulder arthroplasty for left rotator cuff tear done by Dr. Aquino. Patient was sitting up comfortably in bed and conversing normally when I saw him. He had an ice pack on the shoulder and arm was in a sling. He denied any pain or discomfort of the shoulder or arm currently. Only concern was that his throat felt sore after being intubated today. Denied any other concerns at this time. [facility] Medical History (Updated 03/14/24 @ 16:[address] Shoaib Meyers, ) CPAP (continuous positive airway pressure) dependence Sleep apnea Prostate disease Loss of hearing Wears dentures Cancer Alcohol use Thyroid disease Walker as ambulation aid Arthritis Bladder disease Back pain Vertigo History of ulceration Gastric reflux Former smoker Asthma Shortness of breath on exertion History of edema History of stress test History of echocardiogram Cardiology follow-up encounter Hypertension Pain Home Medications ?Medication ?Instructions ?Recorded ?Last Taken ?Type amlodipine 5 mg tablet 5 mg PO DAILY 10/27/22 03/14/24 History aspirin 81 mg capsule 81 mg PO DAILY 10/27/22 03/13/24 History celecoxib 100 mg capsule 100 mg PO BID 10/27/22 05/19/23 History doxazosin 4 mg tablet 4 mg PO DAILY 10/27/22 03/14/24 History fenofibrate nanocrystallized 145 145 mg PO QHS 10/27/22 03/13/24 History mg tablet loratadine 10 mg tablet (Claritin) 10 mg PO DAILY 10/27/22 03/13/24 History levothyroxine 100 mcg tablet See Rx Instructions PO DAILY 05/14/23 03/14/24 History Allergy/AdvReac Type Severity Reaction Status Date / Time clopidogrel (From Plavix) Allergy Intermediate Rash Verified 03/14/24 08:42 hydrocodone (From [place]) Allergy Intermediate Rash Verified 03/14/24 09:10 oxycodone Allergy Intermediate Rash Verified 03/14/24 09:10 Surgical History Hx of transurethral resection of prostate History of cardiac catheterization History of coronary artery stent placement Hx of right cataract extraction Hx of left cataract extraction Hx of detached retina repair History of carpal tunnel surgery of right wrist History of carpal tunnel surgery of left wrist Hx of elbow surgery Hx of rotator cuff surgery Hx of foot surgery History of fusion of cervical spine History of lumbar fusion History of lumbar discectomy Hx of total knee arthroplasty Hx of transurethral destruction of bladder lesion Social History Smoking Status: Former smoker ROS Constitutional Constitutional: Denies chills, fatigue, fever(s) or weakness ENT HEENT: Reports sore throat Cardiovascular Cardiovascular: Denies chest pain Respiratory/Chest Respiratory/Chest: Denies shortness of breath at rest Gastrointestinal Gastrointestinal: Denies abdominal pain Musculoskeletal Musculoskeletal: Denies joint pain Neurologic Neurologic: Denies dizziness, numbness or tingling Physical Exam Const alert, oriented x3 and no apparent distress Constitutional Narrative: Pleasant elderly male, class III obesity, mildly fatigued appearing but otherwise sitting up comfortably in bed, conversing normally and in no acute distress. General Appearance: cooperative and comfortable HEENT normocephalic, head/scalp atraumatic, hearing grossly normal bilaterally, nasal mucous membranes and turbinates normal and moist oral mucous membranes Eyes PERRL, EOMs intact bilaterally and conjunctivae normal Neck full ROM Chest inspection of chest normal Resp normal respiratory effort, normal air movement, no use of accessory muscles and clear to auscultation bilaterally Cardio regular rate, regular rhythm, no murmurs and peripheral pulses 2+ throughout GI normal to inspection, nondistended, normoactive bowel sounds, soft to palpation, non-tender and non-distended Back/Spine normal ROM Extremity Extremity Narrative: Left arm stable in sling and ice pack over left shoulder. Skin no rashes or lesions noted Neuro no focal motor deficits Psych mental status grossly normal Lab / Micro Data 02/25/24 09:18 02/25/24 09:18 Labs: Laboratory Results - last 24 hr 03/14/24 09:02: POC Glucose 164 H Charges/Coding Visit Charges Inpatient E&M: 95334 Subs Hosp L2
[2024-03-14] MEDS: 0.9% Saline Lock 10 ML Syringe IV (18:07)
[2024-03-14] MEDS: Cefazolin 1 GM/50 ML BAG IV (18:07)
[2024-03-14] MEDS: Senna/Docusate Sodium 1 Tablet 2 TABLET PO (22:09)
[2024-03-14] MEDS: Celecoxib 100 MG Capsule PO (22:10)
[2024-03-14] MEDS: Fenofibrate 145 MG Tablet PO (22:10)
[2024-03-15] MEDS: Cefazolin 1 GM/50 ML BAG IV (02:29)
[2024-03-15 02:36] VITALS: BP 140/73; PULSE 79; RESP 20; TEMP 36.9; O2SAT 95
[2024-03-15 06:16] VITALS: BP 138/82; PULSE 76; RESP 18; TEMP 36.7; O2SAT 96
[2024-03-15] MEDS: Acetaminophen 500 MG Tablet 1000 MG PO ×2 (06:23→13:15)
[2024-03-15] MEDS: Levothyroxine 100 MCG Tablet PO (06:24)
[2024-03-15 08:12] LABS: Hematocrit 35.6 % (40-54); Hemoglobin 11.9 g/dL (13.0-16.5); Mean Corp Hgb Conc 33.4 g/dL (32-36); Mean Corpuscular Hgb 32.2 pg (27.0-32.0); Mean Corpuscular Volume 96.2 fL (80-94); Mean Platelet Vol. 10.5 fl (6.2-12.0); Platelet Count 218 K/mm3 (150-450); RBC Distribution Width CV 13.9 % (11.6-14.6); RBC Distribution Width SD 49.6 fl (35.1-43.9)
[2024-03-15 08:28] LABS: Anion Gap 6 (5-15); BUN 18 mg/dL (7-18); BUN/Creat Ratio 20.7 RATIO (10-20); Calcium,Total 8.4 mg/dL (8.5-10.1); Chloride 106 mmol/L (98-107); Creatinine, Serum 0.87 mg/dL (0.70-1.30); EST Glomerular Filtration Rate 89 mL/min (>60); Est Glom Filt Rate - Afr Amer 107 mL/min (>60); Estimated Creatinine Clearance 65.29 ml/min; Glucose 140 mg/dL (74-106); Sodium Level 138 mmol/L (136-145)
[2024-03-15 08:50] VITALS: BP 127/57; PULSE 83; RESP 16; TEMP 36.7; O2SAT 94
[2024-03-15] MEDS: Aspirin 81 MG TAB.CHEW PO (08:55)
[2024-03-15] MEDS: Doxazosin 4 MG Tablet PO (09:31)
[2024-03-15] MEDS: Senna/Docusate Sodium 1 Tablet 2 TABLET PO (09:31)
[2024-03-15] MEDS: Celecoxib 100 MG Capsule PO (09:31)
[2024-03-15] MEDS: Loratadine 10 MG Tablet PO (09:31)
[2024-03-15] MEDS: amLODIPine 5 MG Tablet PO (09:32)
--- NOTE | 2024-03-15 10:26 | CASEMGMT ---
BEA PADILLA Assessment: Face to Face with pt for initial transition planning/care coordination assessment. RN RANDY introduced self and role at [facility], pt voices understanding and consents to assessment. Pt is A&O x4 and answers all questions appropriately at this time. Pt sitting up in chair in no distress. Care providers, pharmacy, and demographics verified/updated. Strata: 4 Admitting Dx: ERAS, Total Shoulder Replacement PCP: Sherie Specialists: Reny Aquino; Juvenal, Yarder Operator Preferred Pharmacy: [facility] Insurance: [employer] [facility] Prescription Benefit: yes LNOK: , Teresita Living Arrangements: Pt lives with in a 2 story home with 3 steps to enter. ADLs: Pt states I at baseline Transportation: Pt drives self and denies concerns with transportation. DME:CPAP, quad cane, walkers, cane, shower chair, grab bars. Therapy worked with Pt using Richar-walker while at the hospital. Discussed getting richar-walker, Pt would like to use Quad Cane with DCd from [facility]. HHC/SNF: Denied Hx of. Pt states no concerns with going home at time of dc. Pt states no further concerns/needs. CM to follow. Advised pt to ask CM if any further question/concerns/needs arise, voices understanding. Pt Goal: Home Plan: Home with DME in place, Pt will start OP therapy after F/U appointment with surgeonScott Levy RN, CM
--- NOTE | 2024-03-15 12:24 | DS.PCM_ITS ---
Providers Date of Admission: 03/14/24 Date of Discharge: 03/15/24 Primary Care Physician: Dr. Azul Rehman, DO Consultations 03/14/24 12:38 Consult: Hospitalist Routine Consulting Provider: Shoaib Meyers Reason for Consult: Post op medical management s/p Left reverse total shoulder EMERGENT Consult: No MD Notified: Yes Date Notified: 03/14/24 Time Notified: 14:57 Method of Notification: Text Reason For Visit: ERAS, Total Shoulder Replacement, Reverse Diagnosis Discharge Diagnosis (1) Rotator cuff tear arthropathy of left shoulder: Status: Acute Code(s): M75.102 - Unspecified rotator cuff tear or rupture of left shoulder, not specified as traumatic; M12.812 - Other specific arthropathies, not elsewhere classified, left shoulder Plan: Patient is status post op reverse left total shoulder arthroplasty 03/14/2024. 1. Will continue PT today. Sling in place at all time. Nonweightbearing to left upper extremity 2. plan for discharge this afternoon following PT 3. Patient will follow up for post op appointment as previously scheduled in 2 weeks 4. Patient has outpatient PT appointment o as previously scheduled in 2 weeks 5. WBC 10.0 acute reactive leukocytosis: secondary to pre operative decadron. no acute systemic signs of infection. will monitor, and likely self resolve. 6. H/H 11.9/35.6: post operavtive anemia secondary to acute blood loss intraoperatively. Patient is asymptomatic at this time. No intraoperative complications. will continue to monitor. no acute interventions. 7. DVT prophylaxis : Aspirin 81 mg twice daily x 2 weeks 8. Pain control: patient instructed to take tylenol 500mg 2 tablets TID. and oxycodone 1-2 tablets every 4-6 hours only as needed for pain control. 9. ok to remove post op dressing. post op day 5 (2) Hypertension: Status: Chronic Code(s): I10 - Essential (primary) hypertension Medications at Discharge Home Medications amlodipine 5 mg tablet 5 mg PO DAILY 10/27/22 aspirin 81 mg capsule 81 mg PO DAILY 10/27/22 celecoxib 100 mg capsule 100 mg PO BID 10/27/22 doxazosin 4 mg tablet 4 mg PO DAILY 10/27/22 fenofibrate nanocrystallized 145 mg tablet 145 mg PO QHS 10/27/22 loratadine 10 mg tablet (Claritin) 10 mg PO DAILY 10/27/22 levothyroxine 100 mcg tablet See Rx Instructions PO DAILY 05/14/23 acetaminophen 500 mg tablet 1,000 mg (2 x 500 mg) PO Q8 #180 tabs 03/15/24 aspirin 81 mg chewable tablet 81 mg PO BID 2 weeks #28 tabs 03/15/24 sennosides 8.6 mg-docusate sodium 50 mg tablet (Stimulant Laxative Plus) 2 tab PO BID #14 tabs 03/15/24 Hospital Course Operations - (Left reverse total shoulder arthroplasty) Summary of Care Provided Hospital Course: Patient is s/p left reverse total shoulder arthroplasty with Dr. Cordero 03/14/2024. Patient resting comfortably in bed. Rates pain 2/ 10 at rest. States taking Tylenol and ice help to relieve pain. Patient has been up with therapy. Sling to left upper extremity all times. Nonweightbearing. Afebrile, no chest pain, shortness of breath, negative calf pain/ erythema, and no other signs of DVT. Physical Exam Narrative Patient resting comfortably in bed No signs of acute distress Satting well on room air Sling intact Limb is warm to touch, Sensation intact throughout entire left upper extremity extremity, Motor intact to radial, median, ulnar nerve distribution Radial pulses bounding Dressing clear dry intact Calf nontender to palpation, no erythema, no edema. Negative Homans Weight / BMI Weight Weight: 104 kg Body Mass Index (BMI) 40.6 ABG / Lab / Microbiology Data 03/15/24 07:27 03/15/24 07:27 Laboratory: Laboratory Results - last 24 hr 03/15/24 07:27: WBC 10.0, RBC 3.70 L, Hgb 11.9 L, Hct 35.6 L, MCV 96.2 H, MCH 32.2 H, MCHC 33.4, RDW Std Deviation 49.6 H, RDW Coeff of Nehemias 13.9, Plt Count 218, MPV 10.5, Sodium 138, Potassium 4.0, Chloride 106, Carbon Dioxide 25.0, Anion Gap 6, BUN 18, Creatinine 0.87, Estim Creat Clear Calc 65.29, Est GFR (MDRD) Af Amer 107, Est GFR (MDRD) Non-Af 89, BUN/Creatinine Ratio 20.7 H, G lucose 140 H, Calcium 8.4 L Microbiology: Microbiology 02/25/24 09:18 Swab (Method) Nasal Screen MRSA/MSSA - Final Radiography Diagnostic Testing: Radiology Impression Shoulder X-Ray 03/14/24 12:40 IMPRESSION: Postop shoulder arthroplasty in anatomic alignment. Electronically Signed: Meme Baxter MD at 7:55 EST Reading Location ID and State: [address] [place] [address] Tel , Service support , D/C Instructions Discharge Diet: No restrictions Discharge Activity: May Shower Weight Bearing Status: No weight bearing (Left upper extremity) Additional Activity Instructions: Sling at all times. Okay for elbow range of motion and pendulums as tolerated Call your doctor if your incision/area has: Continuous Slow Oozing, Sudden Increased Bleeding, Increased Pain/ Swelling, Increased Redness, Foul Smelling Discharge and Swelling at the incision site Call your doctor if you observe: Fever of 101 or Higher, Numbness or Tingling, Inability to urinate, Inability to have a bowel movement, Dizziness, Chest pain, Increased palpitations (irregular heartbeat), Calf discomfort and Uncontrolled pain Remove Dressing in: 1 week Cleanse incision/area with: Soap & Water and Keep Dressing Clean & Dry DC O2, CPAP, BIPAP Needs Home O2 Discharge instructions: No When: In 2 weeks as previously scheduled with orthopedics. Meaningful Use Info Meaningful Use Meaningful Use Diagnoses (Choose all that apply): None applicable Ischemic Stroke Statin Dosing Therapy Reference: STATIN DOSE THERAPY REFERENCE: * Patients > 75 years receive moderate or high dose statin therapy. * Patients 75 years or YOUNGER should receive HIGH intensity statin dose unless contraindicated. You will be required to document reason for non-treatment if statin daily dose does not meet guidelines. HIGH DOSE STATIN THERAPY DAILY Atorvastatin > than or = to 40 mg Rosuvastatin > than or = to 20 mg Amlodipine + Atorvastatin > than or = to 2.5/40 mg Ezetimibe + Simvastatin 10/80 mg Simvastatin 80mg Discharge Plan Admission Admit Date/Time: 03/14/24 12:23 Attending Provider: Mario Cordero Primary Care Provider: Azul Rehman Consulting Providers: Shoaib Meyers; Alvarez Alonso Discharge Orders/Prescriptions Prescriptions: New acetaminophen 500 mg Tablet 1,000 mg PO Q8 Qty: 180 0RF aspirin 81 mg Tablet,Chewable 81 mg PO BID 14 Days Qty: 28 0RF sennosides-docusate sodium [Stimulant Laxative Plus] 8.6-50 mg Tablet 2 tab PO BID Qty: 14 0RF Continued amlodipine 5 mg tablet 5 mg PO DAILY Patient Comments: TAKE 1 TABLET BY MOUTH EVERY DAY doxazosin 4 mg tablet 4 mg PO DAILY loratadine [Claritin] 10 mg tablet 10 mg PO DAILY fenofibrate nanocrystallized 145 mg tablet 145 mg PO QHS Patient Comments: TAKE 1 TABLET BY MOUTH AT BEDTIME celecoxib 100 mg capsule 100 mg PO BID levothyroxine 100 mcg tablet See Rx Instructions PO DAILY Rx Instructions: 100 MCG THURSDAY, THURSDAY, THURSDAY AND THURSDAY 200 MCG THURSDAY, THURSDAY AND THURSDAY Held aspirin 81 mg capsule 81 mg PO DAILY Hold Instructions: Resume on 03/29/24. Patient Comments: DR. CORDERO ASK RE:STOPPING Other Ambulatory Orders: 12 Lead EKG (Routine) Timeframe: 20240225 Location: None Selected Ordered By: Dr. Mario Cordero Referrals / Follow Up: Azul Rehman DO [Primary Care Provider] - Disposition Disposition (needs filled in before D/C Order can be placed): Home, Self Care
[2024-03-15 13:11] VITALS: BP 100/51; PULSE 84; RESP 16; TEMP 36.8; O2SAT 95
--- NOTE | 2024-03-15 14:46 | CASEMGMT ---
Met with patient and his to complete LANG form. LANG form explained to both who voiced understanding and signed form. Original form placed in pt?s chart and copy provided to patient. Nelly Martinez, Discharge Planning Asst
--- NOTE | 2024-03-15 15:12 | PHA.DC.MR.R ---
Pharmacy [facility] Reconciliation [facility]acy Service has performed discharge medication reconciliation for this patient. Medication education papers prepared, patient discharged when counseling was attempted. The patient's discharge medication list was reviewed for discrepancies and discrepancies were resolved. Medications at Discharge Home Medications amlodipine 5 mg tablet 5 mg PO DAILY 10/27/22 aspirin 81 mg capsule 81 mg PO DAILY 10/27/22 celecoxib 100 mg capsule 100 mg PO BID 10/27/22 doxazosin 4 mg tablet 4 mg PO DAILY 10/27/22 fenofibrate nanocrystallized 145 mg tablet 145 mg PO QHS 10/27/22 loratadine 10 mg tablet (Claritin) 10 mg PO DAILY 10/27/22 levothyroxine 100 mcg tablet See Rx Instructions PO DAILY 05/14/23 acetaminophen 500 mg tablet 1,000 mg (2 x 500 mg) PO Q8 #180 tabs 03/15/24 aspirin 81 mg chewable tablet 81 mg PO BID 2 weeks #28 tabs 03/15/24 sennosides 8.6 mg-docusate sodium 50 mg tablet (Stimulant Laxative Plus) 2 tab PO BID #14 tabs 03/15/24
== END 2024-03-15 14:57 | disposition home or self-care (01) ==
LOC: SDC 13:03 → MS3 13:03
PROVIDERS: Anesthesiology; Admitting Provider Student in an Organized Health Care Education/Training Program; PCP Family Medicine; Referring Provider Student in an Organized Health Care Education/Training Program; Visit Provider Student in an Organized Health Care Education/Training Program
PROC: (CPT 23472; principal; 2024-03-14 10:00)
DX: M75.102 Unspecified rotator cuff tear or rupture of left shoulder, not specified as traumatic (principal); Z68.41 Body mass index [BMI] 40.0-44.9, adult; Z87.891 Personal history of nicotine dependence; R53.81 Other malaise; I10 Essential (primary) hypertension; G47.00 Insomnia, unspecified; E78.00 Pure hypercholesterolemia, unspecified; E03.9 Hypothyroidism, unspecified; Z79.899 Other long term (current) drug therapy; Z79.890 Hormone replacement therapy; Z79.82 Long term (current) use of aspirin; M19.019 Primary osteoarthritis, unspecified shoulder; Z95.5 Presence of coronary angioplasty implant and graft; E66.813 Obesity, class 3; K21.9 Gastro-esophageal reflux disease without esophagitis; J45.909 Unspecified asthma, uncomplicated; M12.812 Other specific arthropathies, not elsewhere classified, left shoulder
CPT/HCPCS: 23472; 01638

== ENCOUNTER → 2024-08-23 | Outpatient (CLI) | payer MEDICARE, SELFPAY ==
[2024-08-23 18:03] LABS: Hematocrit 38.0 % (40-54); Hemoglobin 12.8 g/dL (13.0-16.5); Immature Granulocytes Count 0.020 X10^3/uL (0.0-0.0); Mean Corp Hgb Conc 33.7 g/dL (32-36); Mean Corpuscular Volume 89.4 fL (80-94); Mean Platelet Vol. 9.8 fl (6.2-12.0); NRBC Flagged by Analyzer 0 % (0-5); Platelet Count 304 K/mm3 (150-450); RBC Distribution Width CV 14.4 % (11.6-14.6); RBC Distribution Width SD 47.0 fl (35.1-43.9); Red Blood Count 4.25 M/mm3 (4.6-6.2); White Blood Count 6.2 K/mm3 (4.4-11.0)
[2024-08-23 18:35] LABS: Anion Gap 10 (5-15); BUN 15 mg/dL (4-19); BUN/Creat Ratio 18.1 RATIO (10-20); CRP 51.30 mg/L (0.0-3.0); Calcium,Total 9.3 mg/dL (7.6-11.0); Carbon Dioxide 25.7 mmol/L (21.0-32.0); Chloride 103 mmol/L (98-108); Glucose 114 mg/dL (70-99); Potassium 4.2 mmol/L (3.3-5.1)
[2024-08-24 12:44] LABS: Magnesium 2.2 mg/dL (1.5-2.2)
== END | disposition home or self-care (01) ==
LOC: MTLAB 15:25
PROVIDERS: Anesthesiology; PCP Family Medicine; Referring Provider Student in an Organized Health Care Education/Training Program; Visit Provider Student in an Organized Health Care Education/Training Program
DX: Z01.818 Encounter for other preprocedural examination (principal); T84.59XA Infection and inflammatory reaction due to other internal joint prosthesis, initial encounter
CPT/HCPCS: 36415; 80048; 83735; 84443; 85025; 85652; 86140

== ENCOUNTER 2024-08-24 18:52 | Inpatient (IN) | payer MEDICARE, SELFPAY ==
[2024-08-24] VITALS (9 sets, daily range): BP systolic 134–146; BP diastolic 61–122; PULSE 72–83; RESP 18–23; TEMP 36.6–37.3; O2SAT 94–96; BMI 40.3; BMI 39.0
--- NOTE | 2024-08-24 19:06 | EKG12_ITS ---
Test Reason : Blood Pressure : */* mmHG Vent. Rate : 79 BPM Atrial Rate : 79 BPM P-R Int : 158 ms QRS Dur : 74 ms QT Int : 354 ms P-R-T Axes : 16 7 6 degrees QTcB Int : 405 ms Normal sinus rhythm Inferior infarct (cited on or before 25-Feb-2024) Abnormal ECG Confirmed by JAY DEL VALLE, ADARSH ([id number]), editor in chief VLAD ESTEVEZ ([id number]) on 08/25/2024 2:14:55 PM Referred By: Derrick Fernandez Confirmed By: DAARSH THOMPSON MD
[2024-08-24] MEDS: 0.9% Normal Saline (1000mL) 1,000 ML 999 ML IV (19:24)
--- NOTE | 2024-08-24 19:26 | RAD_ITS ---
PROCEDURE: CHEST 1 VIEW (PORTABLE) 08/24/2024 REASON FOR EXAM: PREOPERATIVE CLEARANCE TECHNIQUE: Frontal view of the chest. COMPARISON: None FINDINGS: Mild pulmonary vascular congestion. No focal consolidation. No pleural effusion or pneumothorax. Cardiac silhouette is mildly enlarged Left shoulder prosthesis. RAD/Chest 1 View (Portable) IMPRESSION: Mild pulmonary vascular congestion. No definite focal consolidations. Mild ca rdiomegaly. Reading Location: [id number]
[2024-08-24] MEDS: Ampicillin/Sulbactam 3 GM in 0.9% Normal Saline (100mL MB+) 100 ML IV ×2 (19:33→23:35)
[2024-08-24 20:00] LABS: Hematocrit 35.2 % (40-54); Hemoglobin 11.7 g/dL (13.0-16.5); Immature Granulocytes Count 0.020 X10^3/uL (0.0-0.0); Mean Corp Hgb Conc 33.2 g/dL (32-36); Mean Corpuscular Volume 89.6 fL (80-94); Mean Platelet Vol. 9.7 fl (6.2-12.0); NRBC Flagged by Analyzer 0 % (0-5); Platelet Count 288 K/mm3 (150-450); RBC Distribution Width CV 14.4 % (11.6-14.6); RBC Distribution Width SD 46.7 fl (35.1-43.9); Red Blood Count 3.93 M/mm3 (4.6-6.2); White Blood Count 7.8 K/mm3 (4.4-11.0)
[2024-08-24 20:11] LABS: Prothrombin Time (Protime)PT. 14.4 SECONDS (11.7-14.9)
[2024-08-24 20:12] LABS: Partial Thromboplast Time 30.7 Seconds (24.1-36.2)
[2024-08-24] MEDS: Vancomycin HCl 2,000 MG in 0.9% Normal Saline (500mL Bag) 500 ML 250 MG IV (20:26)
[2024-08-24 20:38] LABS: AST(SGOT) 33 U/L (<=37); Alanine Aminotransfer ALT/SGPT 23 U/L (<=46); Albumin, Serum 3.4 g/dL (3.4-4.8); Alkaline Phosphatase 83 U/L (40-129); Anion Gap 9 (5-15); BUN 18 mg/dL (4-19); BUN/Creat Ratio 18.6 RATIO (10-20); Calcium,Total 8.9 mg/dL (7.6-11.0); Carbon Dioxide 25.2 mmol/L (21.0-32.0); Chloride 100 mmol/L (98-108); Estimated Creatinine Clearance 58.31 ml/min (50-250); Globulin 3.1 g/dL (2.2-4.2); Glucose 127 mg/dL (70-99); Potassium 4.3 mmol/L (3.3-5.1)
[2024-08-24 20:48] LABS: Color, Urine Yellow (Yellow); Glucose, Dipstick Normal (Normal); Ketone-Dipstick Negative (Negative); Leukocyte Esterase-Dipstick 100 /ul (Negative); Mucous, Urine 0 SEEN /hpf (<or=2+); Nitrite-Dipstick Negative (Negative); Occult Blood-Urine 10 /ul (Negative); Protein-Dipstick 30 mg/dl (Negative); Specific Gravity, Urine 1.010 (1.002-1.030); Squamous Epithelial Cells - UA 0 SEEN /hpf (0-5); Urine Bilirubin Dipstick Negative (Negative)
[2024-08-24 20:49] LABS: Body Fluid Mononuclear WBC # 10.795 10^3/uL; Body Fluid Mononuclear WBC % 7.5 %; Body Fluid Polynuclear WBC # 133.324 10^3/uL; Body Fluid Polynuclear WBC % 92.5 %; Red Cell Count/Body Fluid 0.341 10^6/ul
[2024-08-24 20:50] LABS: White Blood Count/Body Fluid 108.980 10^3/uL
--- NOTE | 2024-08-24 20:53 | EX.ED.UPPERE ---
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 Cordero for infected left shoulder status post total arthroplasty February 2024. He presents because of temperature 100.8 and shaking chills. He has no antibiotic allergies. He is not presently on an anticoagulant or antithrombotic. He does have a history of hypertension and hypothyroidism. He is presently no antibiotic. He is scheduled for surgery at [address] Amin. He denies headache, visual, ocular auditory symptoms. He denies cardiac or respiratory symptoms. He denies GI symptoms. He denies urologic symptoms. Prior similar symptoms: Yes Recent Illness/Hospitalization: No PFSH PFSH Medical History Rotator cuff tear arthropathy of left shoulder CPAP (continuous positive airway pressure) dependence Prostate disease Loss of hearing Wears dentures Cancer Alcohol use Thyroid disease Walker as ambulation aid Arthritis Bladder disease Back pain Vertigo History of ulceration Gastric reflux Former smoker Asthma Shortness of breath on exertion History of edema History of stress test History of echocardiogram Cardiology follow-up encounter Hypertension Pain Home Medications ?Medication ?Instructions ?Recorded ?Last Taken ?Type amlodipine 5 mg tablet 5 mg PO DAILY BP 10/27/22 03/14/24 History aspirin 81 mg capsule 81 mg PO DAILY HEART HEALTH 10/27/22 08/23/24 History celecoxib 100 mg capsule 100 mg PO BID ARTHRITIS 10/27/22 05/19/23 History doxazosin 4 mg tablet 4 mg PO DAILY BP 10/27/22 03/14/24 History fenofibrate nanocrystallized 145 145 mg PO QHS CHOLESTEROL 10/27/22 03/13/24 History mg tablet loratadine 10 mg tablet (Claritin) 10 mg PO QHS ALLERGY 10/27/22 03/13/24 History levothyroxine 100 mcg tablet 100 mcg PO SUTUTHFRSA THYROID 05/14/23 03/14/24 History levothyroxine 100 mcg capsule 200 mcg PO MOWEFR THYROID 08/24/24 Unknown History Allergy/AdvReac Type Severity Reaction Status Date / Time clopidogrel (From Plavix) Allergy Intermediate Rash Verified 08/24/24 18:54 hydrocodone (From [place]) Allergy Intermediate Rash Verified 08/24/24 18:54 oxycodone Allergy Intermediate Rash Verified 08/24/24 18:54 Surgical History Hx of total shoulder replacement Hx of transurethral resection of prostate History of cardiac catheterization History of coronary artery stent placement Hx of right cataract extraction Hx of left cataract extraction Hx of detached retina repair History of carpal tunnel surgery of right wrist History of carpal tunnel surgery of left wrist Hx of elbow surgery Hx of rotator cuff surgery Hx of foot surgery History of fusion of cervical spine History of lumbar fusion History of lumbar discectomy Hx of total knee arthroplasty Hx of transurethral destruction of bladder lesion Social History Smoking Status: Former smoker ROS ROS ED Constitutional Constitutional ED: Reports chills, fever(s) and sweats; Denies subjective Eyes Eyes: Denies blurry vision or change in vision ENT ENT ED: Denies ear pain, rhinorrhea or sore throat Cardiovascular Cardiovascular: Denies chest pain or palpitations Respiratory/Chest Respiratory/Chest: Denies cough, dyspnea or dyspnea on exertion Gastrointestinal Gastrointestinal: Denies abdominal pain, nausea or vomiting Genitourinary Genitourinary ED: Denies dysuria, hematuria or urinary frequency Musculoskeletal Musculoskeletal: Reports other Details: Left shoulder pain. ; Denies back pain, myalgias or neck pain Integumentary Reports abscess and rash Neurologic Neurologic: Denies headache(s), paresthesias or weakness Psychiatric Psychiatric: Denies anxiety or depression Endocrine Endocrinology: Denies cold intolerance or heat intolerance Hematologic/Lymphatic Hematologic/Lymphatic: Denies easy bleeding or easy bruising EXAM Physical Exam Const Vital Signs: 08/24/24 18:52 08/24/24 18:58 08/24/24 19:01 Temperature 99.1 F 99.1 F Temperature Source Oral Oral Pulse Rate 79 77 79 Respiratory Rate 18 21 H 20 H Blood Pressure 141/122 H 141/122 H 136/81 H Blood Pressure Mean 128 128 99 Pulse Ox 95 96 96 Oxygen Delivery Method Room Air Room Air Room Air 08/24/24 19:58 08/24/24 20:00 Temperature 98.7 F 98.7 F Temperature Source Oral Oral Pulse Rate 77 75 Respiratory Rate 22 H 23 H Blood Pressure 134/63 H 134/63 H Blood Pressure Mean 86 86 Pulse Ox 94 95 Oxygen Delivery Method Room Air Room Air Positive well nourished and well developed General Appearance ED: well developed and NAD; Negative for cyanotic or diaphoretic HEENT Reports moist mucous membranes normocephalic and atraumatic Eyes PERRL and EOMs intact bilaterally Eyes Narrative: Conjunctive is pink. Neck full ROM and supple General: Negative for tenderness Chest Wall Negative for inspection of chest normal or palpation of chest normal Chest Narrative: Patient has area of erythema firmness induration and fluctuance left shoulder area. He has a well-healed scar. There is no neurovasc Otomize of that extremity. Resp normal respiratory effort and clear to auscultation bilaterally Cardio regular rate, regular rhythm, S1 normal heart sound, S2 normal heart sound and no murmurs GI non-tender, non-distended and no masses Auscultation: normoactive bowel sounds Palpation: soft Back/Spine no CVA tenderness Extremity Negative for normal to inspection or full ROM Neuro oriented x3, CN's II-XII intact bilaterally and moves all extremities Sensorium / Orientation: alert Psych mental status grossly normal Skin Rashes: no rashes MDM MDM MDM Narrative Medical decision making narrative: Patient with cellulitis abscess and probable septic joint to be scheduled for surgery. He states he was scheduled for surgery at 11 AM. Septic workup was undertaken. The abscess was aspirated. 3 cc of dark brown bloody purulent material was aspirated. Fluid was sent for Gram stain, culture, cell count. Appropriate blood work was obtained as well to determine if there is any evidence of endorgan dysfunction. He was started on Unasyn and vancomycin per the sepsis treatment order set. History & Record Review Additional record(s) reviewed:: Prior outpatient record (Patient had surgery March 14, 2024) and Other (Note by Dr. Fernandez for admission for malignant neoplasm of bladder.) Lab Data Attestation: I reviewed the patient's lab results. Lab results narrative: White count is normal. There is a slight shift. Patient is anemic with an H&H 11.7 and 35.2. Comprehensive metabolic panel is remarkable and elevated glucose. CO2 anion gap are normal. Lactate is normal. Urinalysis dip was positive for protein, occult blood and leukoesterase. Negative for nitrites. Labs: Laboratory Results - last 24 hr 08/24/24 08/24/24 08/24/24 19:19 19:26 19:33 WBC 7.8 RBC 3.93 L Hgb 11.7 L Hct 35.2 L MCV 89.6 MCH 29.8 MCHC 33.2 RDW Std Deviation 46.7 H RDW Coeff of Nehemias 14.4 Plt Count 288 MPV 9.7 Immature Gran % (Auto) 0.300 Neut % (Auto) 71.8 H Lymph % (Auto) 12.3 L Reeves % (Auto) 12.2 H Eos % (Auto) 3.1 Baso % (Auto) 0.3 Absolute Neuts (auto) 5.6 Absolute Lymphs (auto) 0.96 Nucleated RBC % 0 PT 14.4 INR 1.1 APTT 30.7 Sodium 134 Potassium 4.3 Chloride 100 Carbon Dioxide 25.2 Anion Gap 9 BUN 18 Creatinine 0.97 Estim Creat Clear Calc 58.31 Est GFR (MDRD) Non-Af 76 BUN/Creatinine Ratio 18.6 Glucose 127 H Lactic Acid 1.4 Calcium 8.9 Total Bilirubin 0.36 AST 33 ALT 23 Alkaline Phosphatase 83 Total Protein 6.6 Albumin 3.4 Globulin 3.1 Albumin/Globulin Ratio 1.1 Urine Color Urine Clarity Urine pH Ur Specific Rankin Urine Protein Urine Glucose (UA) Urine Ketones Urine Occult Blood Urine Nitrite Urine Bilirubin Urine Urobilinogen Ur Leukocyte Esterase Fluid WBC 108.980 Fluid RBC 0.341 Fluid Tot Cell Count 109.500 Fld Polynuclear WBCs # 133.324 Fld Polynuclear WBCs % 92.5 Fluid Mononuclear WBCs 10.795 Fld Mononuclear WBCs % 7.5 Synovial Source Cancelled Synovial Color Cancelled Synovial Appearance Cancelled Synovial Volume Cancelled Synovial Viscosity Cancelled Synovial WBC Cancelled Synovial RBC Cancelled Synovial Tot Cell Ct Cancelled Synov Polynuclear WBCs Cancelled Synov Mononuclear WBCs Cancelled Synovial Neutrophils Cancelled Synovial Lymphocytes Cancelled Synovial Monocytes Cancelled Synovial Plasma Cells Cancelled Synovial Other Cells Cancelled Synovial Polynuclear % Cancelled Synovial Mononuclear % Cancelled Synovial Path Comment Cancelled POC Glucose 118 H 07/09/25 20:27 WBC RBC Hgb Hct MCV MCH MCHC RDW Std Deviation RDW Coeff of Nehemias Plt Count MPV Immature Gran % (Auto) Neut % (Auto) Lymph % (Auto) Reeves % (Auto) Eos % (Auto) Baso % (Auto) Absolute Neuts (auto) Absolute Lymphs (auto) Nucleated RBC % PT INR APTT Sodium Potassium Chloride Carbon Dioxide Anion Gap BUN Creatinine Estim Creat Clear Calc Est GFR (MDRD) Non-Af BUN/Creatinine Ratio Glucose Lactic Acid Calcium Total Bilirubin AST ALT Alkaline Phosphatase Total Protein Albumin Globulin Albumin/Globulin Ratio Urine Color Yellow Urine Clarity Clear Urine pH 7.0 Ur Specific Rankin 1.010 Urine Protein 30 H Urine Glucose (UA) Normal Urine Ketones Negative Urine Occult Blood 10 H Urine Nitrite Negative Urine Bilirubin Negative Urine Urobilinogen 1 H Ur Leukocyte Esterase 100 H Fluid WBC Fluid RBC Fluid Tot Cell Count Fld Polynuclear WBCs # Fld Polynuclear WBCs % Fluid Mononuclear WBCs Fld Mononuclear WBCs % Synovial Source Synovial Color Synovial Appearance Synovial Volume Synovial Viscosity Synovial WBC Synovial RBC Synovial Tot Cell Ct Synov Polynuclear WBCs Synov Mononuclear WBCs Synovial Neutrophils Synovial Lymphocytes Synovial Monocytes Synovial Plasma Cells Synovial Other Cells Synovial Polynuclear % Synovial Mononuclear % Synovial Path Comment POC Glucose Radiography Chest X-Ray - ED: 1 View and Read by ED Physician (Prostatic left shoulder noted. There is no evidence of infiltrate or effusion. Cardiac silhouette is normal. Heart size is slightly enlarged. Suboptimal film.) Diagnostic Testing: Clinical Impression(s) from Imaging Studies Chest X-Ray 08/24/24 19:26 IMPRESSION: Mild pulmonary vascular congestion. No definite focal consolidations. Mild cardiomegaly. Reading Location: [facility] EKG Initial EKG: Attestation: I personally reviewed and interpreted this EKG as follows: Interpretation: Sinus Rhythm (Rate is 74. MI was 150 ms Rickers. 74 ms her QT duration 2023 ms. [place] is normal computer is reading inferior infarct. I am in disagreement. There is no acute ischemic changes.) Management Discussion w/another healthcare provider: Hospitalist (Spoke with Dr. Dustin Meyers. Full admission MedSurg) and Backup Administrative Coordinator (Spoke with Dr. Herb Bateman who will contact Dr. Cordero.) Discharge Plan Triage Chief Complaint: Upper Extremity Injury Other Complaint: Wound ED Provider: Derrick Fernandez Dx/Rx/DC Orders Clinical Impression: Septic joint of left shoulder region, Hypertension, Status post reverse total arthroplasty of left shoulder, Abscess or cellulitis of shoulder, History of hypothyroidism Prescriptions: No Action amlodipine 5 mg tablet 5 mg PO DAILY Patient Comments: TAKE 1 TABLET BY MOUTH EVERY DAY doxazosin 4 mg tablet 4 mg PO DAILY loratadine [Claritin] 10 mg tablet 10 mg PO QHS fenofibrate nanocrystallized 145 mg tablet 145 mg PO QHS Patient Comments: TAKE 1 TABLET BY MOUTH AT BEDTIME aspirin 81 mg capsule 81 mg PO DAILY Patient Comments: DR. CORDERO ASK RE:STOPPING celecoxib 100 mg capsule 100 mg PO BID levothyroxine 100 mcg tablet 100 mcg PO SUTUTHFRSA Rx Instructions: 100 MCG THURSDAY, THURSDAY, THURSDAY AND THURSDAY 200 MCG THURSDAY, THURSDAY AND THURSDAY levothyroxine 100 mcg capsule 200 mcg PO Primary Care Provider: Azul Rehman Referrals: Azul Rehman DO [Primary Care Provider] - Print Language: Sudanese Disposition Disposition: Acute Care Hospital [facility]
--- NOTE | 2024-08-24 21:06 | PCM.HP.STD ---
HPI - General General Date of Admission: 08/24/24 Date of Service: 08/24/24 Chief Complaint: Left shoulder infection HPI Narrative ANTON MENDOZA, is a 84 M who presented to [facility] ED on 08/24/2024 with suspected left shoulder infection. Patient has history of left total shoulder replacement in February with Dr. Aquino. He noticed pain and swelling of the skin in the anterior left shoulder starting a few days ago. He notified Dr. Aquino and given concern for cellulitis with abscess and possible septic shoulder, plan was for surgery on the morning of 08/25. However, patient developed fevers and chills this afternoon so he came in to the ED for further evaluation. Had low-grade fever noted but was otherwise hemodynamically stable on room air. CBC and BMP were benign and lactate was normal. Chest x-ray showed mild pulmonary vascular congestion and left shoulder prosthesis with good positioning. Patient had significant redness with swelling noted on the skin of the anterior shoulder. ED physician aspirated this area and 3 cc of dark brown bloody purulent material was aspirated. Fluid was sent for Gram stain, culture and cell count. Patient was started on Unasyn and vancomycin and hospitalist was contacted for admission. I saw the patient at bedside in the ED. Patient was laying back fairly comfortably in bed in no acute distress. He reported mild shoulder pain with discomfort currently though he denies any significant symptoms at rest. Denies any fevers or chills currently. Will be admitted for further management. FOR[facility]LY [facility] Medical History Rotator cuff tear arthropathy of left shoulder CPAP (continuous positive airway pressure) dependence Prostate disease Loss of hearing Wears dentures Cancer Alcohol use Thyroid disease Walker as ambulation aid Arthritis Bladder disease Back pain Vertigo History of ulceration Gastric reflux Former smoker Asthma Shortness of breath on exertion History of edema History of stress test History of echocardiogram Cardiology follow-up encounter Hypertension Pain Home Medications ?Medication ?Instructions ?Recorded ?Last Taken ?Type amlodipine 5 mg tablet 5 mg PO DAILY BP 10/27/22 03/14/24 History aspirin 81 mg capsule 81 mg PO DAILY HEART HEALTH 10/27/22 08/23/24 History celecoxib 100 mg capsule 100 mg PO BID ARTHRITIS 10/27/22 05/19/23 History doxazosin 4 mg tablet 4 mg PO DAILY BP 10/27/22 03/14/24 History fenofibrate nanocrystallized 145 145 mg PO QHS CHOLESTEROL 10/27/22 03/13/24 History mg tablet loratadine 10 mg tablet (Claritin) 10 mg PO QHS ALLERGY 10/27/22 03/13/24 History levothyroxine 100 mcg tablet 100 mcg PO SUTUTHFRSA THYROID 05/14/23 03/14/24 History levothyroxine 100 mcg capsule 200 mcg PO MOWEFR THYROID 08/24/24 Unknown History Allergy/AdvReac Type Severity Reaction Status Date / Time clopidogrel (From Plavix) Allergy Intermediate Rash Verified 08/24/24 18:54 hydrocodone (From [place]) Allergy Intermediate Rash Verified 08/24/24 18:54 oxycodone Allergy Intermediate Rash Verified 08/24/24 18:54 Surgical History Hx of total shoulder replacement Hx of transurethral resection of prostate History of cardiac catheterization History of coronary artery stent placement Hx of right cataract extraction Hx of left cataract extraction Hx of detached retina repair History of carpal tunnel surgery of right wrist History of carpal tunnel surgery of left wrist Hx of elbow surgery Hx of rotator cuff surgery Hx of foot surgery History of fusion of cervical spine History of lumbar fusion History of lumbar discectomy Hx of total knee arthroplasty Hx of transurethral destruction of bladder lesion Social History Smoking Status: Former smoker ROS Constitutional Constitutional: Reports chills, fatigue and fever(s); Denies weakness Eyes Eyes: Denies change in vision Cardiovascular Cardiovascular: Denies chest pain Respiratory/Chest Respiratory/Chest: Denies shortness of breath at rest Gastrointestinal Gastrointestinal: Denies abdominal pain Musculoskeletal Musculoskeletal: Reports joint pain and joint swelling Neurologic Neurologic: Denies dizziness, focal weakness, headache(s), numbness or tingling Vital Signs Vital Signs Vital Signs: 08/24/24 18:52 08/24/24 18:58 08/24/24 19:01 Temperature 99.1 F 99.1 F Temperature Source Oral Oral Pulse Rate 79 77 79 Respiratory Rate 18 21 H 20 H Blood Pressure 141/122 H 141/122 H 136/81 H Blood Pressure Mean 128 128 99 Pulse Ox 95 96 96 Oxygen Delivery Method Room Air Room Air Room Air 08/24/24 19:58 08/24/24 20:00 08/24/24 20:57 Temperature 98.7 F 98.7 F 98.4 F Temperature Source Oral Oral Pulse Rate 77 75 73 Respiratory Rate 22 H 23 H 22 H Blood Pressure 134/63 H 134/63 H 146/65 H Blood Pressure Mean 86 86 92 Pulse Ox 94 95 95 Oxygen Delivery Method Room Air Room Air 08/24/24 21:00 Temperature 98.4 F Temperature Source Oral Pulse Rate 83 Respiratory Rate 22 H Blood Pressure 139/70 H Blood Pressure Mean 93 Pulse Ox 94 Oxygen Delivery Method Room Air Weight Weight: 103.2 kg Body Mass Index (BMI) 40.3 Physical Exam Const alert, oriented x3 and no apparent distress Constitutional Narrative: Pleasant elderly male, class II obesity, mildly fatigued appearing but otherwise laying back comfortably in bed, conversing normally, in no acute distress. General Appearance: cooperative and comfortable HEENT normocephalic, head/scalp atraumatic, hearing grossly normal bilaterally, nasal mucous membranes and turbinates normal and moist oral mucous membranes Eyes PERRL, EOMs intact bilaterally and conjunctivae normal Neck full ROM Chest inspection of chest normal Resp normal respiratory effort, normal air movement, no use of accessory muscles and clear to auscultation bilaterally Cardio regular rate, regular rhythm, no murmurs and peripheral pulses 2+ throughout GI normal to inspection, nondistended, normoactive bowel sounds, soft to palpation, non-tender and non-distended Back/Spine normal ROM Extremity Extremity Narrative: Anterior left shoulder area with redness and swelling noted. Did not attempt range of motion of the shoulder. Psych mental status grossly normal Results Lab / Micro Data 08/24/24 19:19 08/24/24 19:19 Labs: Laboratory Results - last 24 hr 08/24/24 19:19: WBC 7.8, RBC 3.93 L, Hgb 11.7 L, Hct 35.2 L, MCV 89.6, MCH 29.8, MCHC 33.2, RDW Std Deviation 46.7 H, RDW Coeff of Nehemias 14.4, Plt Count 288, MPV 9.7, Immature Gran % (Auto) 0.300, Neut % (Auto) 71.8 H, Lymph % (Auto) 12.3 L, [place] % (Auto) 12.2 H, Eos % (Auto) 3.1, Baso % (Auto) 0.3, Absolute Neuts (auto) 5.6, Absolute Lymphs (auto) 0.96, Nucleated RBC % 0, PT 14.4, INR 1.1, APTT 30.7, Sodium 134, Potassium 4.3, Chloride 100, Carbon Dioxide 25.2, Anion Gap 9, BUN 18, Creatinine 0.97, Estim Creat Clear Calc 58.31, Est GFR (MDRD) Non-Af 76, BUN/Creatinine Ratio 18.6, Glucose 127 H, Lactic Acid 1.4, Calcium 8.9, Total Bilirubin 0.36, AST 33, ALT 23, Alkaline Phosphatase 83, Total Protein 6.6, Albumin 3.4, Globulin 3.1, Albumin/Globulin Ratio 1.1 08/24/24 19:26: Fluid WBC 108.980, Fluid RBC 0.341, Fluid Tot Cell Count 109.500, Fld Polynuclear WBCs # 133.324, Fld Polynuclear WBCs % 92.5, Fluid Mononuclear WBCs 10.795, Fld Mononuclear WBCs % 7.5, Synovial Source Cancelled, Synovial Color Cancelled, Synovial Appearance Cancelled, Synovial Volume Cancelled, Synovial Viscosity Cancelled, Synovial WBC Cancelled, Synovial RBC Cancelled, Synovial Tot Cell Ct Cancelled, Synov Polynuclear WBCs Cancelled, Synov Mononuclear WBCs Cancelled, Synovial Neutrophils Cancelled, Synovial Lymphocytes Cancelled, Synovial Monocytes Cancelled, Synovial Plasma Cells Cancelled, Synovial Other Cells Cancelled, Synovial Polynuclear % Cancelled, Synovial Mononuclear % Cancelled, Synovial Path Comment Cancelled 08/24/24 19:33: POC Glucose 118 H 08/24/24 20:27: Urine Color Yellow, Urine Clarity Clear, Urine pH 7.0, Ur Specific [place] 1.010, Urine Protein 30 H, Urine Glucose (UA) Normal, Urine Ketones Negative, Urine Occult Blood 10 H, Urine Nitrite Negative, Urine Bilirubin Negative, Urine Urobilinogen 1 H, Ur Leukocyte Esterase 100 H Imaging Radiology Impression Chest X-Ray 08/24/24 19:26 IMPRESSION: Mild pulmonary vascular congestion. No definite focal consolidations. Mild cardiomegaly. Reading Location: [id number] Assessment & Plan Assessment/Plan (1) Abscess or cellulitis of shoulder: (2) Septic joint of left shoulder region: PLAN: Plan Patient is an 84-year-old male who presented to [facility] ED on 08/24/2024 with concern for left shoulder septic joint. 1. Left shoulder cellulitis with abscess and concern for septic joint in setting of recent left total shoulder replacement ? Admit under inpatient status to [facility]. Orthopedics and ID consulted. PT/OT/case management consulted. Patient had left total shoulder replacement with Dr. Aquino in February for left total rotator cuff tear with no complications at that time. Presents now with cellulitis with abscess on anterior shoulder and concern for septic joint. Abscess aspirated in ED and fluid sent for testing. Will treat with IV vancomycin and Unasyn for now. N.p.o. midnight with plan for procedure with orthopedics tomorrow. Pain control with Tylenol, tramadol and IV morphine as needed. Chronic medical conditions: ? Class II obesity: BMI 39 on admit. Complicates hospital course, care and prognosis. ? History of CAD with stenting, hypertension, hyperlipidemia: Mildly hypertensive to the 140s systolic in the ED. Continue home amlodipine, doxazosin and fenofibrate. Hold home baby aspirin given plan for procedure as above, restart when able. ? Hypothyroidism: Continue home Synthroid. ? History of bladder cancer s/p resection, history of enlarged prostate s/p TURP DVT prophylaxis: Lovenox CODE STATUS: Full code, verified Expected disposition: TBD Total clinical time spent by myself addressing the patient's medical issues, reviewing all the data, and collaborating with patient's care team: 55 minutes. Charges/Coding Visit Charges Inpatient E&M: 38736 Init Hosp L2
[2024-08-24 21:29] LABS: Red Blood Cells-Urine 0-5 SEEN /hpf (0-5)
--- NOTE | 2024-08-24 21:33 | CASEMGMT ---
Care Management Face to Face with patient for initial transition planning/care coordination assessment in the ED.? This news writer introduced self and role at [facility]. Patient alert and oriented. Patient willing to participate in assessment and is able to answer all questions appropriately.? Care providers, pharmacy, and demographics verified. Admitting Diagnosis: Septic joint of left shoulder Other diagnosis history: ?hypertension, hyperthyroidism, thyroid disease, asthma PCP: ?Sherie Specialists: Juvenal Aquino Proano Preferred Pharmacy: [facility] Insurance: ?[employer] Prescription Benefit: ?yes Living Will/HPOA: completed LNOK: Living Arrangements: ?patient lives with in 2 story home, reports to being independent with ADLs and IADLs Transportation: ?patient drives DME: ?quad cane, walker, shower chair, grab bars HHC: ?denies SNF/Rehab: denies Community Resources: ?None Behavioral Health History: ?None Patient goals: Patient wishes to discharge home, denies need for home health care at this time. Patient denies any further needs or concerns at this time. Disposition Plan: admission to acute; RN CM/SW to follow for discharge planning needs that may arise. Radha Palomo, SALES PROMOTER, [employer]
[2024-08-24 22:18] LABS: Appearance/Body Fluid TURBID; Auto B Fluid Analyzer BKGD Ct COUNTS W/IN LIMITS (W/IN LIMITS); Color/Body Fluid RED; Neutrophil (Segs) 95 %
[2024-08-24 22:21] LABS: Body Fluid QC Type(s) BF1Q
--- NOTE | 2024-08-24 23:25 | PCM.RX.CS ---
Consult Antibiotic Management Pharmacy has been consulted to manage selected antibiotic: Vancomycin Type of Intervention Type of Consult: New start Labs Labs: Sodium 134 mmol/L (133-145) 08/24/24 19:19 Potassium 4.3 mmol/L (3.3-5.1) 08/24/24 19:19 Chloride 100 mmol/L (98-108) 08/24/24 19:19 Carbon Dioxide 25.2 mmol/L (21.0-32.0) 08/24/24 19:19 Anion Gap 9 (5-15) 08/24/24 19:19 BUN 18 mg/dL (4-19) 08/24/24 19:19 Creatinine 0.97 mg/dL (0.70-1.20) 08/24/24 19:19 Est GFR (MDRD) Non-Af 76 (>60) 08/24/24 19:19 BUN/Creatinine Ratio 18.6 RATIO (10-20) 08/24/24 19:19 Glucose 127 mg/dL (70-99) H 08/24/24 19:19 Microbiology Microbiology: Microbiology 08/24/24 19:26 Fluid - Bursa Gram Stain - Preliminary Dosing Weight Weight used for dosin kg Estimated Creatinine Clearance Estimated Creatinine Clearance: 58.31 Goal Trough Goal Trough: 15-20 mcg/mL Pharmacy Plan for Drug Dosing Pharmacy Plan for Drug Dosing: Pharmacy Service will continue to monitor and adjust dosing as required. ER DOSE 2GM GIVEN 08/24 @ 2025. START 1GM Q12H AND DRAW TROUGH PRIOR TO 4TH DOSE Follow-Up Labs Follow-Up Labs: Trough: Vancomycin Date/Time Labs Ordered Labs to be done on [date and time ordered]: 08/26 @ 0800
[2024-08-24] MEDS: Lactated Ringers 1,000 ML 75 ML IV (23:31)
[2024-08-25] VITALS (16 sets, daily range): BP systolic 116–136; BP diastolic 58–106; PULSE 55–81; RESP 16–20; TEMP 36–37.3; O2SAT 93–100
[2024-08-25 06:06] LABS: Hematocrit 34.3 % (40-54); Hemoglobin 11.2 g/dL (13.0-16.5); Mean Corp Hgb Conc 32.7 g/dL (32-36); Mean Corpuscular Volume 91.2 fL (80-94); Mean Platelet Vol. 9.8 fl (6.2-12.0); Platelet Count 270 K/mm3 (150-450); RBC Distribution Width CV 14.6 % (11.6-14.6); RBC Distribution Width SD 48.3 fl (35.1-43.9); Red Blood Count 3.76 M/mm3 (4.6-6.2); White Blood Count 6.5 K/mm3 (4.4-11.0)
[2024-08-25] MEDS: Ampicillin/Sulbactam 3 GM in 0.9% Normal Saline (100mL MB+) 100 ML IV ×4 (06:12→23:23)
[2024-08-25 06:23] LABS: Prothrombin Time (Protime)PT. 15.0 SECONDS (11.7-14.9)
[2024-08-25 06:24] LABS: Partial Thromboplast Time 35.8 Seconds (24.1-36.2)
[2024-08-25 06:52] LABS: Anion Gap 10 (5-15); BUN 15 mg/dL (4-19); BUN/Creat Ratio 19.9 RATIO (10-20); Calcium,Total 8.5 mg/dL (7.6-11.0); Carbon Dioxide 22.3 mmol/L (21.0-32.0); Chloride 107 mmol/L (98-108); Estimated Creatinine Clearance 68.21 ml/min (50-250); Glucose 103 mg/dL (70-99); Potassium 3.8 mmol/L (3.3-5.1)
--- NOTE | 2024-08-25 07:51 | PCM.PN.HOSP ---
Reason for Visit Reason for Visit: Diagnoses Pyogenic arthritis, unspecified (08/24/24) Subjective Subjective States he been having left shoulder issues for about 3 weeks. was in her aware of until just recently. Noticed increased swelling and as well as a lesion shoulder as well which sought attention for. Objective Data Objective Data Vital Signs: Vital Signs Temp Pulse Resp BP Pulse Ox O2 Del Method 36.3 C L 55 L 16 131/61 H 98 CPAP 08/25/24 06:13 08/25/24 06:13 08/25/24 06:13 08/25/24 06:13 08/25/24 06:13 08/25/24 06:13 Oxygen Delivery Method CPAP Weight: 100 kg Body Mass Index (BMI) 39.0 Intake & Output: Intake and Output for Last 24 Hours 08/23/24 08/24/24 08/25/24 23:59 23:59 23:59 Intake Total 1890 / 1890 200 / 200 Balance 1890 / 1890 200 / 200 Lab / Micro Data 08/25/24 04:45 08/25/24 04:45 Labs: Laboratory Results - last 24 hr 08/24/24 19:19: WBC 7.8, RBC 3.93 L, Hgb 11.7 L, Hct 35.2 L, MCV 89.6, MCH 29.8, MCHC 33.2, RDW Std Deviation 46.7 H, RDW Coeff of Nehemias 14.4, Plt Count 288, MPV 9.7, Immature Gran % (Auto) 0.300, Neut % (Auto) 71.8 H, Lymph % (Auto) 12.3 L, [place] % (Auto) 12.2 H, Eos % (Auto) 3.1, Baso % (Auto) 0.3, Absolute Neuts (auto) 5.6, Absolute Lymphs (auto) 0.96, Nucleated RBC % 0, PT 14.4, INR 1.1, APTT 30.7, Sodium 134, Potassium 4.3, Chloride 100, Carbon Dioxide 25.2, Anion Gap 9, BUN 18, Creatinine 0.97, Estim Creat Clear Calc 58.31, Est GFR (MDRD) Non-Af 76, BUN/Creatinine Ratio 18.6, Glucose 127 H, Lactic Acid 1.4, Calcium 8.9, Total Bilirubin 0.36, AST 33, ALT 23, Alkaline Phosphatase 83, Total Protein 6.6, Albumin 3.4, Globulin 3.1, Albumin/Globulin Ratio 1.1 08/24/24 19:26: Fluid Source OTHER, Fluid Color RED, Fluid Appearance TURBID, Fluid WBC 108.980, Fluid RBC 0.341, Fluid Tot Cell Count 109.500, Fld Polynuclear WBCs # 133.324, Fld Polynuclear WBCs % 92.5, Fluid Mononuclear WBCs 10.795, Fld Mononuclear WBCs % 7.5, Fluid Neutrophils 95, Fluid Lymphocytes 3, Fluid Monocytes 2, Fl Pathologist Comment May follow, Fluid Comment 2 Not Reportable, Synovial Source Cancelled, Synovial Color Cancelled, Synovial Appearance Cancelled, Synovial Volume Cancelled, Synovial Viscosity Cancelled, Synovial WBC Cancelled, Synovial RBC Cancelled, Synovial Tot Cell Ct Cancelled, Synov Polynuclear WBCs Cancelled, Synov Mononuclear WBCs Cancelled, Synovial Neutrophils Cancelled, Synovial Lymphocytes Cancelled, Synovial Monocytes Cancelled, Synovial Plasma Cells Cancelled, Synovial Other Cells Cancelled, Synovial Polynuclear % Cancelled, Synovial Mononuclear % Cancelled, Synovial Path Comment Cancelled 08/24/24 19:33: POC Glucose 118 H 08/24/24 20:27: Urine Color Yellow, Urine Clarity Clear, Urine pH 7.0, Ur Specific [place] 1.010, Urine Protein 30 H, Urine Glucose (UA) Normal, Urine Ketones Negative, Urine Occult Blood 10 H, Urine Nitrite Negative, Urine Bilirubin Negative, Urine Urobilinogen 1 H, Ur Leukocyte Esterase 100 H, Urine RBC 0-5 SEEN, Urine WBC 0-5 SEEN, Ur Squamous Epith Cells 0 SEEN, Urine Bacteria RARE, Urine Mucus 0 SEEN 08/25/24 04:45: WBC 6.5, RBC 3.76 L, Hgb 11.2 L, Hct 34.3 L, MCV 91.2, MCH 29.8, MCHC 32.7, RDW Std Deviation 48.3 H, RDW Coeff of Nehemias 14.6, Plt Count 270, MPV 9.8, PT 15.0 H, INR 1.2, APTT 35.8, Sodium 139, Potassium 3.8, Chloride 107, Carbon Dioxide 22.3, Anion Gap 10, BUN 15, Creatinine 0.74, Estim Creat Clear Calc 68.21, Est GFR (MDRD) Non-Af 88, BUN/Creatinine Ratio 19.9, Glucose 103 H, Calcium 8.5 Micro: Microbiology 08/24/24 19:26 Fluid - Bursa Gram Stain - Preliminary Radiography Diagnostic Testing: Radiology Impression Chest X-Ray 08/24/24 19:26 IMPRESSION: Mild pulmonary vascular congestion. No definite focal consolidations. Mild cardiomegaly. Reading Location: [facility] Physical Exam Const alert and no apparent distress HEENT head/scalp atraumatic and moist oral mucous membranes Resp normal respiratory effort, no retractions, no use of accessory muscles and clear to auscultation bilaterally Cardio regular rate, regular rhythm, S1 normal heart sound and S2 normal heart sound GI normal to inspection, nondistended, normoactive bowel sounds, soft to palpation, non-tender and non-distended Auscultation: hyperactive bowel sounds Extremity Extremity Narrative: Swelling of left shoulder with anterior bullae. Neuro Sensorium / Orientation: awake and alert Assessment & Plan Assessment/Plan (1) Septic joint of left shoulder region: PLAN: Status post aspiration in the ED and sent for further testing. Antibiotics currently with vancomycin and ampicillin/sulbactam. Patient was already to have surgery scheduled for today as outpatient but surgery was consulted with plan for surgery today. Aspirate Gram stain negative. Culture pending. Blood cultures pending. PLAN: Plan Chronic medical conditions: ? Class II obesity: BMI 39 on admit. Complicates hospital course, care and prognosis. ? History of CAD with stenting, hypertension, hyperlipidemia: Mildly hypertensive to the 140s systolic in the ED. Continue home amlodipine, doxazosin and fenofibrate. Hold home baby aspirin given plan for procedure as above, restart when able. ? Hypothyroidism: Continue home Synthroid. ? History of bladder cancer s/p resection, history of enlarged prostate s/p TURP DVT prophylaxis: Lovenox Discussed with the patient's at bedside. Charges/Coding Visit Charges Inpatient E&M: 79397 Subs Hosp L2
[2024-08-25] MEDS: Vancomycin IV 1,000 MG/200 ML BAG 200 MG IV ×2 (08:16→22:47)
[2024-08-25] MEDS: Lactated Ringers 1,000 ML 15 ML IV (12:26)
[2024-08-25] MEDS: Magnesium 1 GM over 15 mins IV (12:34)
--- NOTE | 2024-08-25 12:43 | CON.PCM.OR_ITS ---
HPI Consult Data Date of Consult: 08/25/24 HPI Narrative Reason for Consultation: Left shoulder prosthetic joint infection HPI Narrative: ANTON MENDOZA, is an 84M who was seen in my office on 08/23/2024 6 months status post left reverse total shoulder arthroplasty. He reported some light redness in the left shoulder over the last month or so which came to ahead over the last 3 to 5 days with worsening redness, pain, swelling. I saw the patient in the office as mentioned above on 08/23/2024. Given the gross purulence, I recommend we proceed with left shoulder I&D, explantation of the reverse total shoulder arthroplasty and placement of antibiotic spacer. We rescheduled for surgery today 08/25/2024. Yesterday, patient felt warm and was unable to find a thermometer so he called EMS. He reports a low-grade fever and was brought to the emergency room. Patient was admitted under the service of the hospitalist after a limited bedside I&D was performed by the emergency room physician at which time fluid cultures were obtained. He was started on IV Unasyn and vancomycin. At time my examination this afternoon, patient denies any fevers, chills, nausea vomiting, chest pain or shortness of breath. Pain is controlled at this time. [facility] Medical History Rotator cuff tear arthropathy of left shoulder CPAP (continuous positive airway pressure) dependence Prostate disease Loss of hearing Wears dentures Cancer Alcohol use Thyroid disease Walker as ambulation aid Arthritis Bladder disease Back pain Vertigo History of ulceration Gastric reflux Former smoker Asthma Shortness of breath on exertion History of edema History of stress test History of echocardiogram Cardiology follow-up encounter Hypertension Pain Home Medications ?Medication ?Instructions ?Recorded ?Last Taken ?Type amlodipine 5 mg tablet 5 mg PO DAILY BP 10/27/22 History aspirin 81 mg capsule 81 mg PO DAILY HEART HEALTH 10/27/22 08/23/24 History celecoxib 100 mg capsule 100 mg PO BID ARTHRITIS 10/1705/19/23 History doxazosin 4 mg tablet 4 mg PO DAILY BP 10/27/22 History fenofibrate nanocrystallized 145 145 mg PO QHS CHOLEST JALYN 10/27/22 03/13/24 History mg tablet loratadine 10 mg tablet (Claritin) 10 mg PO QHS ALLERG Y 10/27/22 03/13/24 History levothyroxine 100 mcg tablet 100 mcg PO SUTUTHFRSA THY ROID 05/14/23 03/14/24 History levothyroxine 100 mcg capsule 200 mcg PO MOWEFR THYROI D 08/24/24 Unknown History Allergy/AdvReac Type Severity Reaction Status Date / Time clopidogrel (From Plavix) Allergy Intermediate Rash Verified 08/24/24 18:54 hydrocodone (From [place]) Allergy Intermediate Rash Verified 08/24/24 18:54 oxycodone Allergy Intermediate Rash Verified 08/24/24 18:54 Surgical History Hx of total shoulder replacement Hx of transurethral resection of prostate History of cardiac catheterization History of coronary artery stent placement Hx of right cataract extraction Hx of left cataract extraction Hx of detached retina repair History of carpal tunnel surgery of right wrist History of carpal tunnel surgery of left wrist Hx of elbow surgery Hx of rotator cuff surgery Hx of foot surgery History of fusion of cervical spine History of lumbar fusion History of lumbar discectomy Hx of total knee arthroplasty Hx of transurethral destruction of bladder lesion Social History Smoking Status: Former smoker ROS ROS Narrative 12 point review of systems obtained, negative unless otherwise noted in HPI. Vital Signs Vital Signs Vital Signs: 08/24/24 18:52 08/24/24 18:58 08/24/24 19:01 Temperature 99.1 F 99.1 F Temperature Source Oral Oral Pulse Rate 79 77 79 Respiratory Rate 18 21 H 20 H Respiratory Effort Respiratory Depth Respiratory Pattern Blood Pressure 141/122 H 141/122 H 136/81 H Blood Pressure Mean 128 128 99 Blood Pressure Source Blood Pressure Position Blood Pressure Location Pulse Ox 95 96 96 Oxygen Delivery Method Room Air Room Air Room Air 08/24/24 19:58 08/24/24 20:00 08/24/24 20:57 Temperature 98.7 F 98.7 F 98.4 F Temperature Source Oral Oral Pulse Rate 77 75 73 Respiratory Rate 22 H 23 H 22 H Respiratory Effort Respiratory Depth Respiratory Pattern Blood Pressure 134/63 H 134/63 H 146/65 H Blood Pressure Mean 86 86 92 Blood Pressure Source Blood Pressure Position Blood Pressure Location Pulse Ox 94 95 95 Oxygen Delivery Method Room Air Room Air 08/24/24 21:00 08/24/24 22:00 08/24/24 22:51 Temperature 98.4 F 98.4 F 97.9 F Temperature Source Oral Oral Oral Pulse Rate 83 78 72 Respiratory Rate 22 H 23 H 18 Respiratory Effort Respiratory Depth Respiratory Pattern Blood Pressure 139/70 H 134/61 H 141/70 H Blood Pressure Mean 93 85 93 Blood Pressure Source Monitor Blood Pressure Position Semi-Fowlers Blood Pressure Location Right Arm Pulse Ox 94 94 95 Oxygen Delivery Method Room Air Room Air Room Air 08/24/24 23:30 08/25/24 06:13 08/25/24 08:00 Temperature 97.4 F L Temperature Source Oral Pulse Rate 55 L Respiratory Rate 16 Respiratory Effort Normal Non-Labored Respiratory Depth Respiratory Pattern Blood Pressure 131/61 H Blood Pressure Mean 84 Blood Pressure Source Monitor Blood Pressure Position Semi-Fowlers Blood Pressure Location Right Arm Pulse Ox 98 94 Oxygen Delivery Method Room Air CPAP Room Air 08/25/24 08:11 08/25/24 11:27 Temperature 99.2 F H Temperature Source Temporal Pulse Rate 63 Respiratory Rate 18 Respiratory Effort Normal Non-Labored Respiratory Depth Normal Respiratory Pattern Normal Blood Pressure 124/63 H Blood Pressure Mean 83 Blood Pressure Source Monitor Blood Pressure Position Semi-Fowlers Blood Pressure Location Right Arm Pulse Ox 98 Oxygen Delivery Method CPAP Room Air Weight Weight: 220 lb 7.396 oz Body Mass Index (BMI) 39.0 Physical Exam Narrative General -A&Ox3, NAD, appears stated age. Vital signs stable, afebrile. Respiratory -normal work of breathing, no intercostal retractions. CV -pulses regular, brisk capillary refill ?4 limbs. Abdomen-soft, nontender, nondistended. No guarding, rigidity, rebound tenderness. Neurologic-cranial nerves II through XII intact, EOMI Left upper extremity: Cellulitic rash about the left deltopectoral incision. Subcutaneous purulence with minimal active drainage noted. Induration is noted as well as warmth no short arc range of motion pain. Neurovascular intact throughout. Radial pulse 2+. Brisk capillary refill in fingertips. Lab / Micro Data 08/25/24 04:45 08/25/24 04:45 Labs: Laboratory Results - last 24 hr 08/24/24 19:19: WBC 7.8, RBC 3.93 L, Hgb 11.7 L, Hct 35.2 L, MCV 89.6, MCH 29.8, MCHC 33.2, RDW Std Deviation 46.7 H, RDW Coeff of Nehemias 14.4, Plt Count 288, MPV 9.7, Immature Gran % (Auto) 0.300, Neut % (Auto) 71.8 H, Lymph % (Auto) 12.3 L, [place] % (Auto) 12.2 H, Eos % (Auto) 3.1, Baso % (Auto) 0.3, Absolute Neuts (auto) 5.6, Absolute Lymphs (auto) 0.96, Nucleated RBC % 0, PT 14.4, INR 1.1, APTT 30.7, Sodium 134, Potassium 4.3, Chloride 100, Carbon Dioxide 25.2, Anion Gap 9, BUN 18, Creatinine 0.97, Estim Creat Clear Calc 58.31, Est GFR (MDRD) Non-Af 76, BUN/Creatinine Ratio 18.6, Glucose 127 H, Lactic Acid 1.4, Calcium 8.9, Total Bilirubin 0.36, AST 33, ALT 23, Alkaline Phosphatase 83, Total Protein 6.6, Albumin 3.4, Globulin 3.1, Albumin/Globulin Ratio 1.1 08/24/24 19:26: Fluid Source OTHER, Fluid Color RED, Fluid Appearance TURBID, Fluid WBC 108.980, Fluid RBC 0.341, Fluid Tot Cell Count 109.500, Fld Polynuclear WBCs # 133.324, Fld Polynuclear WBCs % 92.5, Fluid Mononuclear WBCs 10.795, Fld Mononuclear WBCs % 7.5, Fluid Neutrophils 95, Fluid Lymphocytes 3, Fluid Monocytes 2, Fl Pathologist Comment May follow, Fluid Comment 2 Not Reportable, Synovial Source Cancelled, Synovial Color Cancelled, Synovial Appearance Cancelled, Synovial Volume Cancelled, Synovial Viscosity Cancelled, Synovial WBC Cancelled, Synovial RBC Cancelled, Synovial Tot Cell Ct Cancelled, Synov Polynuclear WBCs Cancelled, Synov Mononuclear WBCs Cancelled, Synovial Neutrophils Cancelled, Synovial Lymphocytes Cancelled, Synovial Monocytes Cancelled, Synovial Plasma Cells Cancelled, Synovial Other Cells Cancelled, Synovial Polynuclear % Cancelled, Synovial Mononuclear % Cancelled, Synovial Path Comment Cancelled 08/24/24 19:33: POC Glucose 118 H 08/24/24 20:27: Urine Color Yellow, Urine Clarity Clear, Urine pH 7.0, Ur Specific [place] 1.010, Urine Protein 30 H, Urine Glucose (UA) Normal, Urine Ketones Negative, Urine Occult Blood 10 H, Urine Nitrite Negative, Urine Bilirubin Negative, Urine Urobilinogen 1 H, Ur Leukocyte Esterase 100 H, Urine RBC 0-5 SEEN, Urine WBC 0-5 SEEN, Ur Squamous Epith Cells 0 SEEN, Urine Bacteria RARE, Urine Mucus 0 SEEN 08/25/24 04:45: WBC 6.5, RBC 3.76 L, Hgb 11.2 L, Hct 34.3 L, MCV 91.2, MCH 29.8, MCHC 32.7, RDW Std Deviation 48.3 H, RDW Coeff of [place]heemias 14.6, Plt Count 270, MPV 9.8, PT 15.0 H, INR 1.2, APTT 35.8, Sodium 139, Potassium 3.8, Chloride 107, Carbon Dioxide 22.3, Anion Gap 10, BUN 15, Creatinine 0.74, Estim Creat Clear Calc 68.21, Est GFR (MDRD) Non-Af 88, BUN/Creatinine Ratio 19.9, Glucose 103 H, Calcium 8.5 Micro: Microbiology 08/24/24 19:26 Fluid - Bursa Gram Stain - Final Imaging Radiology Impression Chest X-Ray 08/24/24 19:26 IMPRESSION: Mild pulmonary vascular congestion. No definite focal consolidations. Mild cardiomegaly. 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 Medical record reviewed. Recommend proceeding with prior planned surgery for I&D left shoulder, explant and placement of antibiotic spacer. Again reviewed the risks, benefits, alternatives to procedure with the patient. Informed consent was confirmed. Risks include but are not limited to bleeding, infection, loss of life or limb, need for additional surgery, persistent pain or infection, fracture, instability, neurovascular injury, DVT or PE, risk of anesthesia. Informed consent obtained. Continue IV antibiotics. Follow cultures, plan for new cultures in OR. ID consult. Will follow.
--- NOTE | 2024-08-25 13:02 | PRE.ANES_ITS ---
ASA Classification* ASA Classification ASA Classification: 3 Assessment & Plan Anesthesia* Anesthesia Assessment Anesthesia Assessment: Discussed sedation and/or anesthesia options, risks, benefits, and alternatives with patient/parents/legal guardian/POA. Questions invited. The patient/parents/legal guardian/POA seems to understand and agrees to proceed with anesthesia plan. Reviewed the physical assessment, medical history, allergy history and patient home medications list prior to surgery/procedure/anesthetic and documented any changes. Performed airway and anesthesia risk assessments. Anesthesia Type Anesthesia Type: General History Source History Obtained from:: Patient, Chart and Significant Other Anesthesia Focused Assessment* Temperature: 99.2 F Pulse Rate: 63 Blood Pressure: 124/63 Respiratory Rate: 18 Pulse Ox: 98 Airway Assessment Mouth opens: >3 cm Mallampati Score: II Labs Anesthesia Preop lab: CBC WBC 6.5 K/mm3 (4.4-11.0) 08/25/24 04:45 08/25/24 RBC 3.76 M/mm3 (4.6-6.2) L 08/25/24 04:45 08/25/24 Hgb 11.2 g/dL (13.0-16.5) L 08/25/24 04:45 5 Hct 34.3 % (40-54) L 08/25/24 04:45 08/25/24 Plt Count 270 K/mm3 (150-450) 08/25/24 04:45 08/25/24 CHEMISTRY Potassium 3.8 mmol/L (3.3-5.1) 08/25/24 04:45 08/25/24 Sodium 139 mmol/L (133-145) 08/25/24 04:45 08/25/24 Magnesium 2.2 mg/dL (1.5-2.2) 08/23/24 15:36 08/23/24 BUN 15 mg/dL (4-19) 08/25/24 04:45 08/25/24 Creatinine 0.74 mg/dL (0.70-1.20) 08/25/24 04:45 08/25/24 Glucose 103 mg/dL (70-99) H 08/25/24 04:45 08/25/24 POC Glucose 118 mg/dL (74-106) H 08/24/24 19:33 08/24/24 TSH 1.790 uIU/mL (0.300-4.200) 08/23/24 15:36 07/0 10/10 COAG PT 15.0 SECONDS (11.7-14.9) H 08/25/24 04:45 08/16 Pre-Assessment Diagnosis/Proposed Procedure Planned Operative Procedure(s): Left Reverse Total Shoulder Replacement Anesthesia History Anesthesia History - de icer finisher: Anesthesia History - de icer finisher Hx Hospitalization No 08/24/24 11:54 Any Problems With Anesthesia No 08/24/24 23:39 Cholinesterase deficiency No 08/24/24 23:39 You/Your Family Experience No 08/24/24 23:39 fever (hyperthermia) with Relationship Recent Exposure to Contagious No 08/24/24 23:39 Disease Does patient have nerve No 08/24/24 23:39 stimulator Patient instructed to have No 08/24/24 23:39 device shut off --Does patient have Pacemaker or ICD? When Was Last Pacemaker Check QUESTION #4 FULL TEXT: You/Your Family Experience fever (hyperthermia) with Anesthesia Any additional information?: No Last Oral Intake Last Oral intake: Last Oral Intake NPO since Meds taken in AM with sips of water? Meds patient instructed to take am of surgery Any additional information?: Yes NPO since: 12:00 Meds taken in AM with sips of water?: Yes PONV PONV - de icer finisher: PONV - de icer finisher Female HX of Motion Sickness HX of N/V After Surgery Non-Smoker Duration of Surgery greater than 60 minutes Number of Risk Factors PONV Score Any additional information?: No Height & Weight Height & Weight: Anesthesia: Height & Weight Height 5 ft 2.99 in 08/24/24 23:01 Weight: 100 kg 08/24/24 23:01 Body Mass Index (BMI) 39.0 08/24/24 23:01 Respiratory Assessment Respiratory Assessment - de icer finisher: Respiratory Tract Infection Hx - de icer finisher Hx Respiratory Tract Infection No 08/24/24 23:39 Any additional information?: No STOP Sleep Apnea STOP Sleep Apnea - de icer finisher: STOP Sleep Apnea - de icer finisher Hx Hypertension Yes 08/25/24 09:51 Hx Sleep Apnea Yes 08/24/24 23:09 CPAP Yes 08/24/24 23:09 BIPAP No 08/24/24 23:09 Do you snore loudly (louder than talking or can be heard Do you often feel tired/ fatigued/ sleepy during daytime? Has anyone observed you stop breathing during sleep? STOP Results Positive 08/24/24 23:09 QUESTION #5 FULL TEXT : Do you snore loudly (louder than talking or can be heard through closed doors)? Any additional information?: No Tobacco Use History Tobacco Use History - de icer finisher: Tobacco Use History - de icer finisher Tobacco Use Smoking Status Former smoker 08/24/24 23:09 Hx Tobacco Use No 08/24/24 23:09 Years Smoking Packs Smoked per Day Smoking Cessation Date was No - quit smoking greater 08/24/24 23:09 within the last 15 years than 15 years ago Hx Smoking Cessation Date 02/16/1967 08/24/24 23:09 Hx Smoking Cessation No 08/24/24 23:09 Counseling Any additional information?: No Hematologic Medial History Hematologic Hx - de icer finisher: Hematologic Medical Hx - tack maker Hx of Blood Transfusion Yes 08/24/24 23:09 Hx of Transfusion in last 3 No 08/24/24 23:09 Months Date of Last Transfusion (if within last 3 months) Ever experience any problems No 08/24/24 23:09 with transfusion(s)? Specify any problems Hx of Preganancy in last 3 N/A 08/24/24 23:09 Months Nurse Filling Out Transfusion CSIGNORIN 08/24/24 23:09 & Questions: Date: 08/24/24 08/24/24 23:09 Time: 23:11 08/24/24 23:09 Patient unable to answer at this time (ie. confused, unrespo Any additional information?: No /Reproduction History /Reproductive History - de icer finisher: /Reproductive Hx- de icer finisher Hx Now No 08/24/24 23:39 Gestational Age (in weeks): EDC: Hx Hx Para Hx Section SAB No 08/24/24 23:39 Any additional information?: No Active Medications Active Medications: Current Medications Generic Name Dose Route Start Last Admin Trade Name Freq PRN Reason Stop Dose Admin Acetaminophen 650 mg 08/24/24 22:48 08/24/24 23:47 Acetaminophen 325 Mg Tablet PO 650 mg Q6H PRN PRN Administration Pain 1-10 Or Fever>100.7 Acetaminophen 1,000 mg 08/25/24 13:30 08/25/24 12:31 Acetaminophen 500 Mg Tablet PO 08/25/24 13:31 1,000 mg PREOP ONE Administration Amlodipine Besylate 5 mg 08/25/24 10:00 08/25/24 09:58 Amlodipine 5 Mg Tablet PO Not Given DAILY [facility] Protocol Cefazolin Sodium 2 gm 08/25/24 13:30 Cefazolin 2 Gm Powder OPERA.SITE 08/25/24 13:31 INTRAOP ONE Doxazosin Mesylate 4 mg 08/25/24 10:00 08/25/24 09:57 Doxazosin 4 Mg Tablet PO Not Given DAILY [facility] Protocol Enoxaparin Sodium 40 mg 08/26/24 10:00 Enoxaparin 40 Mg/0.4 Ml Syringe SC DAILY [facility] Fenofibrate 145 mg 08/24/24 22:48 08/24/24 23:33 Fenofibrate 145 Mg Tablet PO 145 mg QHS [facility]RA Administration Gabapentin 600 mg 08/25/24 13:30 08/25/24 12:32 Gabapentin 600 Mg Tablet PO 08/25/24 13:31 600 mg PREOP ONE Administration Vancomycin IV-PHARMACY TO DOSE 500 mls @ 250 mls/hr 08/24/24 22:48 1 each/ Sodium Chloride IV X1 PRN Rx to Dose Protocol Ampicillin Sodium/Sulbactam 100 mls @ 150 mls/hr 08/25/24 00:00 08/25/24 12:27 Sodium 3 gm/ Sodium Chloride IV Infused Q6 [facility] Infusion Sodium Chloride 250 mls @ 15 mls/hr 08/24/24 22:50 IV .[id number] PRN Saline Flush Sodium Chloride 250 mls @ 15 mls/hr 08/24/24 22:50 IV .[id number] PRN Additional IVPB Infusion Vancomycin HCl 1,000 mg in 200 mls @ 200 mls/hr 08/25/24 08:30 08/25/24 09:16 Vancomycin IV Infused Q12H [facility] Infusion Tranexamic Acid 1,000 mg/ 110 mls @ 660 mls/hr 08/25/24 13:30 Sodium Chloride IV 08/25/24 13:39 INTRAOP ONE Magnesium Sulfate 1 gm/ 102 mls @ 408 mls/hr 08/25/24 13:30 08/25/24 12:34 Dextrose IV 08/25/24 13:44 408 mls/hr INTRAOP ONE Administration Lactated Ringer's 1,000 mls @ 15 mls/hr 08/25/24 12:30 08/25/24 12:26 IV 15 mls/hr .Q48H [facility] Administration Insulin Human Lispro 1 - 6 unit 08/25/24 13:30 Insulin Lispro 100 Unit/Ml Insuln.Pen SC Q4H PRN PRN BG>/= 180, SEE PROTOCOL Protocol Labetalol HCl 20 mg 08/24/24 19:05 Labetalol 20 Mg/4 Ml Vial IV 08/25/24 19:06 X1 PRN BLOOD PRESSURE Levothyroxine Sodium 100 mcg 08/25/24 06:00 08/25/24 06:13 Levothyroxine 100 Mcg Tablet PO Not Given [id number] [facility] Levothyroxine Sodium 200 mcg 08/26/24 06:00 Levothyroxine 100 Mcg Tablet PO [email or web address] [facility] Loratadine 10 mg 08/24/24 22:48 08/24/24 23:33 Loratadine 10 Mg Tablet PO 10 mg QHS [facility] Administration Melatonin 3 mg 08/24/24 22:48 Melatonin 3 Mg Tablet PO QHS PRN PRN INSOMNIA Morphine Sulfate 2 mg 08/24/24 22:48 Morphine 2 Mg/Ml Syringe IV Q4H PRN PRN Pain Score 6-10 Ondansetron HCl 4 mg 08/24/24 22:48 Ondansetron 4 Mg/2 Ml Vial IV Q8H PRN PRN NAUSEA/VOMITING Sodium Chloride 10 - 40 ml 08/24/24 22:50 0.9% Saline Lock 10 Ml Syringe IV UD PRN SALINE FLUSH Tobramycin Sulfate 2.4 gm 08/25/24 13:30 Tobramycin 4.8 Gm Powder TOPICAL 08/25/24 13:31 INTRAOP ONE Tramadol HCl 50 mg 08/24/24 22:48 08/24/24 23:47 Tramadol 50 Mg Tablet PO 50 mg Q6H PRN PRN Administration Pain Score 4-5 Vancomycin HCl 2,000 mg 08/25/24 13:30 Vancomycin 6 Gm Powder OPERA.SITE 08/25/24 13:31 INTRAOP ONE Vancomycin Protocol 1 lab 08/26/24 07:00 Vancomycin Trough/Random Due MC 08/26/24 09:00 DAILY [facility] PFSH Medical History Rotator cuff tear arthropathy of left shoulder CPAP (continuous positive airway pressure) dependence Prostate disease Loss of hearing Wears dentures Cancer Alcohol use Thyroid disease Walker as ambulation aid Arthritis Bladder disease Back pain Vertigo History of ulceration Gastric reflux Former smoker Asthma Shortness of breath on exertion History of edema History of stress test History of echocardiogram Cardiology follow-up encounter Hypertension Pain Home Medications ?Medication ?Instructions ?Recorded ?Last Taken ?Type amlodipine 5 mg tablet 5 mg PO DAILY BP 10/27/22 History aspirin 81 mg capsule 81 mg PO DAILY HEART HEALTH 10/27/22 08/23/24 History celecoxib 100 mg capsule 100 mg PO BID ARTHRITIS 10/1705/19/23 History doxazosin 4 mg tablet 4 mg PO DAILY BP 10/27/22 History fenofibrate nanocrystallized 145 145 mg PO QHS CHOLEST JALYN 10/27/22 03/13/24 History mg tablet loratadine 10 mg tablet (Claritin) 10 mg PO QHS ALLERG Y 10/27/22 03/13/24 History levothyroxine 100 mcg tablet 100 mcg PO SUTUTHFRSA THY ROID 05/14/23 03/14/24 History levothyroxine 100 mcg capsule 200 mcg PO MOWEFR THYROI D 08/24/24 Unknown History Allergy/AdvReac Type Severity Reaction Status Date / Time clopidogrel (From Plavix) Allergy Intermediate Rash Verified 08/24/24 18:54 hydrocodone (From [place]) Allergy Intermediate Rash Verified 08/24/24 18:54 oxycodone Allergy Intermediate Rash Verified 08/24/24 18:54 Surgical History Hx of total shoulder replacement Hx of transurethral resection of prostate History of cardiac catheterization History of coronary artery stent placement Hx of right cataract extraction Hx of left cataract extraction Hx of detached retina repair History of carpal tunnel surgery of right wrist History of carpal tunnel surgery of left wrist Hx of elbow surgery Hx of rotator cuff surgery Hx of foot surgery History of fusion of cervical spine History of lumbar fusion History of lumbar discectomy Hx of total knee arthroplasty Hx of transurethral destruction of bladder lesion Social History Smoking Status: Former smoker Review of Systems (Anesthesia) ROS Narrative System reviewed and no additional complaints, except as documented.
[2024-08-25] MEDS: 0.9% Normal Saline (1000mL) 1,000 ML 15 ML IV (13:06)
[2024-08-25] MEDS: Vancomycin 6 GM Powder 2000 MG OPERA.SITE (13:30)
[2024-08-25] MEDS: CEFAZOLIN 2 GM OPERA.SITE (13:30)
[2024-08-25] MEDS: TOBRAMYCIN 2.4 GM TOPICAL (13:30)
[2024-08-25] MEDS: Mineral Oil, Light Sterile 10 ML Vial MC (14:56)
[2024-08-25] MEDS: Bupiv/Epi 0.25% 30 ML Vial (15:32)
--- NOTE | 2024-08-25 15:46 | PCM.CONS.GEN ---
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 Aspiration cx and bcx pending. Taken to OR 08/25/[address] Aquino for I&D and spacer placement. Surg cx pending. Cont empiric vanc/unasyn. Will follow, thank you HPI Consult Data Date of Consult: 08/25/24 HPI Narrative Reason for Consultation: PJI HPI Narrative: ANTON MENDOZA, is a 84 M with L shoulder replacement 02/2024. Presented to ED 08/24 with several days progressive L shoulder pain, redness, swelling. No known inciting event. Developed fever at home. He was sent to hospital, aspiration done, admitted on vanc/unasyn. Taken to OR today for I&D and spacer placement. Full ROS performed and neg except as noted above. [facility] Medical History Rotator cuff tear arthropathy of left shoulder CPAP (continuous positive airway pressure) dependence Prostate disease Loss of hearing Wears dentures Cancer Alcohol use Thyroid disease Walker as ambulation aid Arthritis Bladder disease Back pain Vertigo History of ulceration Gastric reflux Former smoker Asthma Shortness of breath on exertion History of edema History of stress test History of echocardiogram Cardiology follow-up encounter Hypertension Pain Home Medications ?Medication ?Instructions ?Recorded ?Last Taken ?Type amlodipine 5 mg tablet 5 mg PO DAILY BP 10/27/22 03/14/24 History aspirin 81 mg capsule 81 mg PO DAILY HEART HEALTH 10/27/22 08/23/24 History celecoxib 100 mg capsule 100 mg PO BID ARTHRITIS 10/27/22 05/19/23 History doxazosin 4 mg tablet 4 mg PO DAILY BP 10/27/22 03/14/24 History fenofibrate nanocrystallized 145 145 mg PO QHS CHOLESTEROL 10/27/22 03/13/24 History mg tablet loratadine 10 mg tablet (Claritin) 10 mg PO QHS ALLERGY 10/27/22 03/13/24 History levothyroxine 100 mcg tablet 100 mcg PO SUTUTHFRSA THYROID 05/14/23 03/14/24 History levothyroxine 100 mcg capsule 200 mcg PO MOWEFR THYROID 08/24/24 Unknown History Allergy/AdvReac Type Severity Reaction Status Date / Time clopidogrel (From Plavix) Allergy Intermediate Rash Verified 08/24/24 18:54 hydrocodone (From [place]) Allergy Intermediate Rash Verified 08/24/24 18:54 oxycodone Allergy Intermediate Rash Verified 08/24/24 18:54 Surgical History Hx of total shoulder replacement Hx of transurethral resection of prostate History of cardiac catheterization History of coronary artery stent placement Hx of right cataract extraction Hx of left cataract extraction Hx of detached retina repair History of carpal tunnel surgery of right wrist History of carpal tunnel surgery of left wrist Hx of elbow surgery Hx of rotator cuff surgery Hx of foot surgery History of fusion of cervical spine History of lumbar fusion History of lumbar discectomy Hx of total knee arthroplasty Hx of transurethral destruction of bladder lesion Social History Smoking Status: Former smoker Physical Exam Const alert and no apparent distress General Appearance: cooperative HEENT normocephalic and head/scalp atraumatic Eyes PERRL and EOMs intact bilaterally Neck supple and No nodes Resp normal air movement and clear to auscultation bilaterally Cardio regular rate and regular rhythm GI soft to palpation, non-tender and non-distended Extremity General Extremity: Negative for edema Skin Skin Narrative: no new rash, shoulder wrapped Neuro CN's II-XII intact bilaterally Lab / Micro Data Attestation: I reviewed the patient's lab results. 08/25/24 04:45 08/25/24 04:45 Labs: Laboratory Results - last 24 hr 08/24/24 19:19: WBC 7.8, RBC 3.93 L, Hgb 11.7 L, Hct 35.2 L, MCV 89.6, MCH 29.8, MCHC 33.2, RDW Std Deviation 46.7 H, RDW Coeff of Nehemias 14.4, Plt Count 288, MPV 9.7, Immature Gran % (Auto) 0.300, Neut % (Auto) 71.8 H, Lymph % (Auto) 12.3 L, Bailey % (Auto) 12.2 H, Eos % (Auto) 3.1, Baso % (Auto) 0.3, Absolute Neuts (auto) 5.6, Absolute Lymphs (auto) 0.96, Nucleated RBC % 0, PT 14.4, INR 1.1, APTT 30.7, Sodium 134, Potassium 4.3, Chloride 100, Carbon Dioxide 25.2, Anion Gap 9, BUN 18, Creatinine 0.97, Estim Creat Clear Calc 58.31, Est GFR (MDRD) Non-Af 76, BUN/Creatinine Ratio 18.6, Glucose 127 H, Lactic Acid 1.4, Calcium 8.9, Total Bilirubin 0.36, AST 33, ALT 23, Alkaline Phosphatase 83, Total Protein 6.6, Albumin 3.4, Globulin 3.1, Albumin/Globulin Ratio 1.1 08/24/24 19:26: Fluid Source OTHER, Fluid Color RED, Fluid Appearance TURBID, Fluid WBC 108.980, Fluid RBC 0.341, Fluid Tot Cell Count 109.500, Fld Polynuclear WBCs # 133.324, Fld Polynuclear WBCs % 92.5, Fluid Mononuclear WBCs 10.795, Fld Mononuclear WBCs % 7.5, Fluid Neutrophils 95, Fluid Lymphocytes 3, Fluid Monocytes 2, Fl Pathologist Comment May follow, Fluid Comment 2 Not Reportable, Synovial Source Cancelled, Synovial Color Cancelled, Synovial Appearance Cancelled, Synovial Volume Cancelled, Synovial Viscosity Cancelled, Synovial WBC Cancelled, Synovial RBC Cancelled, Synovial Tot Cell Ct Cancelled, Synov Polynuclear WBCs Cancelled, Synov Mononuclear WBCs Cancelled, Synovial Neutrophils Cancelled, Synovial Lymphocytes Cancelled, Synovial Monocytes Cancelled, Synovial Plasma Cells Cancelled, Synovial Other Cells Cancelled, Synovial Polynuclear % Cancelled, Synovial Mononuclear % Cancelled, Synovial Path Comment Cancelled 08/24/24 19:33: POC Glucose 118 H 08/24/24 20:27: Urine Color Yellow, Urine Clarity Clear, Urine pH 7.0, Ur Specific [place] 1.010, Urine Protein 30 H, Urine Glucose (UA) Normal, Urine Ketones Negative, Urine Occult Blood 10 H, Urine Nitrite Negative, Urine Bilirubin Negative, Urine Urobilinogen 1 H, Ur Leukocyte Esterase 100 H, Urine RBC 0-5 SEEN, Urine WBC 0-5 SEEN, Ur Squamous Epith Cells 0 SEEN, Urine Bacteria RARE, Urine Mucus 0 SEEN 08/25/24 04:45: WBC 6.5, RBC 3.76 L, Hgb 11.2 L, Hct 34.3 L, MCV 91.2, MCH 29.8, MCHC 32.7, RDW Std Deviation 48.3 H, RDW Coeff of Nehemias 14.6, Plt Count 270, MPV 9.8, PT 15.0 H, INR 1.2, APTT 35.8, Sodium 139, Potassium 3.8, Chloride 107, Carbon Dioxide 22.3, Anion Gap 10, BUN 15, Creatinine 0.74, Estim Creat Clear Calc 68.21, Est GFR (MDRD) Non-Af 88, BUN/Creatinine Ratio 19.9, Glucose 103 H, Calcium 8.5 Micro: Microbiology 08/24/24 19:26 Fluid - Bursa Gram Stain - Final Imaging Radiology Impression Chest X-Ray 08/24/24 19:26 IMPRESSION: Mild pulmonary vascular congestion. No definite focal consolidations. Mild cardiomegaly. Reading Location: [id number]
--- NOTE | 2024-08-25 15:59 | PCM.POST.ANE ---
Anesthesia: Postop Eval I Current Vital Signs Temperature: 96.8 F Pulse Rate: 81 Blood Pressure: 116/71 Respiratory Rate: 16 Pulse Ox: 98 Oxygen Delivery Method: Room Air Assessment Airway patent: Yes Spontaneous unlabored respirations: Yes Mental status: Awake and Calm nausea: No Vomiting: No Anesthesia Complication: No Fluid Hydration Crystalloid volume administer (ml): 1,200 Total IV fluid infused: 1,200 Progress Note Anesthesia document: Postop Eval 1 completed: Yes
--- NOTE | 2024-08-25 16:16 | PCM.OPRPT ---
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 Left shoulder revision arthroplasty with explantation of reverse total shoulder arthroplasty and placement of articulating antibiotic spacer 2. Left shoulder irrigation and debridement with debridement of skin, subcutaneous tissue, fascia, muscle and bone paralegal internship: Yes Protein Purification Scientist: Shelly Gonzales Tasks completed by railway yard assistant: Opening & closing, Hemostasis: Electrocautery and Retracting Additional assistant professor of biology?: No Type of Anesthesia: General RN Documented Start/Stop Times: Operation Date: 08/25/24 13:30 Case Time Into Pre-Op 08/25/24 12:26 Out of Pre-Op 08/25/24 13:08 Anesthesia Start 08/25/24 13:09 Into Room 08/25/24 13:09 Procedure Start 08/25/24 13:40 Procedure End 08/25/24 15:42 Anesthesia End 08/25/24 15:51 Out of Room 08/25/24 15:51 Into Recovery 08/25/24 15:53 Procedure Start Time: 13:40 Procedure Stop Time: 15:42 Select all DRAINS/GRAFTS/IMPLANTS that apply: Tissue Tissue details: 1 cc DBX putty and Implanted device Implanted device details: Antibiotic cement spacer with 2 g vancomycin and 2.4 g tobramycin Estimated Blood Loss: 300 cc Specimen collected: Yes Description of specimen(s) removed: Tissue culture x 5 Fluid culture-aerobic and anaerobic Description of surgery: Patient was identified in the preoperative holding area by name, medical record number, and date of . The operative extremity was marked. All questions were answered to the patient's satisfaction. At time of his procedure, patient was brought to the operative suite and positioned supine standard operating table. General anesthesia was induced and endotracheal tube placed. Patient was then positioned in the beachchair position with all bony prominences being well-padded. We spun the bed 45 degrees. We prepped and draped the left upper extremity in normal, sterile orthopedic fashion. We then called a timeout confirming the side, site, and operation be performed. No concerns were voiced and elected to proceed with surgery. Patient was receiving IV Unasyn at time of surgery and was not due for his IV vancomycin. Deltopectoral incision was then opened excising the area of skin necrosis and subcutaneous abscess. Purulent fluid was encountered and cultured. The necrotic skin was ellipticized. Laps were developed on the level of fascia. Purulence appeared to be tracking medially into the deltopectoral interval consistent with septic joint infection. Tissue cultures were obtained both anteriorly and posteriorly as well as at the humeral and glenoid bone interfaces and sent for tissue culture. Necrotic tissue was debrided. Radical synovectomy was performed. I then remove the humeral component which was well-fixed after first removing the polyethylene insert. I used a combination of rigid and flexible osteotomes to dislodge the humeral implant and was able to free it from the implant-bone interface. I then used a reamer to debride the intramedullary canal. I measured for our antibiotic spacer to a size #4 mold. This was then prepared on the back table using 2 batches of Simplex cement mixed with 2 g of vancomycin and 2.4 g tobramycin. I then turned my attention to the glenoid component. The glenosphere was removed without difficulty. Peripheral screws were removed. The baseplate was well-fixed. I utilized a combination of flexible and rigid osteotomes to dislodge the porous coating from the glenoid and was able to remove the baseplate with minimal bone loss on the glenoid. I then thoroughly irrigated the wound and bone with 9 L normal saline with combination pulse lavage and cystoscopy tubing. I then packed the glenoid vault with 1 cc DBX putty. The prepared cement mold was then brought to the surgical field and implanted with a half batch of Simplex cement to secure the implant to the humerus. Cement was allowed to cure. The shoulder was then reduced. Range of motion was reasonable and a. Grossly stable. I then closed the capsular tissue anteriorly with interrupted [id number] #1 PDS suture. The interval was reapproximated with #1 PDS suture. Dermis was reapproximated buried 2-0 PDS suture and skin finally reapproximated interrupted horizontal mattress 2-0 nylon suture. Field block was administered with 20 cc total quarter percent bupivacaine with epinephrine. Mepilex dressing was applied. Patient was placed in a simple sling. He was safely awakened from anesthesia extubated in the operative suite. He tolerated the procedure well without apparent complication. He was transferred to his hospital bed and subsequently to PACU in stable condition. Need for skilled assistant professor of biology: Shelly Gonzales PA-C was critical to the outcome of the case. During the course of the procedure the physician assistant professor of biology played a vital role. Her intimate knowledge of my steps in the procedure aided in safe and expedient completion of the procedure. The PA played a vital role in positioning particularly in obtaining the appropriate positioning. The PA was also vital in the retraction of soft tissues during the exposure and protecting vital structures. The PA was also vital and obtaining joint reduction and assisting with hardware placement. She also played a vital role in closure and sling application with my direct supervision. Postoperative plan: Patient will be nonweightbearing to the operative extremity. Pendulums only x 2 weeks. Continue IV antibiotics. Pending cultures. ID consult. Anticipate need for PICC line and home-going IV antibiotics. Plan for possible second stage revision arthroplasty versus permanent antibiotic spacer based on patient discomfort, function and ability to clear infection. Multimodal pain management ordered. Lovenox to start tomorrow. Will follow. Surgical Findings: Gross purulence present subcutaneous and intra-articular. Well-fixed implants. Complications Complications: No Admit VTE Documentation VTE Present on Admission: No VTE Mechan Device Prophylaxis: SCD's VTE Pharm Prophylaxis ordered?: Yes
--- NOTE | 2024-08-25 16:20 | RAD_ITS ---
PROCEDURE: SHOULDER MIN 2 VIEWS 08/25/2024 REASON FOR EXAM: POST OP LEFT SHOULDER ANTIBIOTIC SPACER TECHNIQUE: SHOULDER MIN 2 VIEWS COMPARISON: Left shoulder study of 03/14/2024. RAD/Shoulder min 2 Views IMPRESSION: Postoperative examination shows interval removal of the left shoulder prosthesi s, with methylmethacrylate antibiotic spacer placed at the freed portions of the proximal left humerus including the left hu meral head. No fracture or dislocation is seen. Reading Location: [address]
--- NOTE | 2024-08-25 21:28 | CPS ---
STOP ATTACHER placed patient on home CPAP unit
--- NOTE | 2024-08-25 21:31 | POSTOPAN2_ITS ---
Anesthesia Postop Eval I Sum Postop Eval Completion status Anesthesia document: Postop Eval 1 completed: Yes Anesthesia Postop Eval I Summary Anesthesia Postop Eval I Summary: Anesthesia Postop Eval I: Assessment Summary Airway patent Yes 08/25/24 16:00 LACTATION [email or web address] Spontaneous unlabored Yes 08/25/24 16:00 LACTATION COORDINATOR.[email or web address] respirations Mental status Awake,Calm 08/25/24 16:00 LACTATION COORDINATOR.[email or web address] nausea No 08/25/24 16:00 LACTATION COORDINATOR.[email or web address] Vomiting No 08/25/24 16:00 LACTATION COORDINATOR.[email or web address] Anesthesia Postop Eval I: Fluid Summary Crystalloid volume administer 1,200 08/25/24 16:00 LACTATION COORDINATOR.[email or web address] (ml) Colloids volume administered ( ml) Blood Product volume administered (ml) Total IV fluid infused 1,200 08/25/24 16:00 LACTATION COORDINATOR.[email or web address] Anesthesia Postop Eval I: Summary Notes Anesthesia Complication No 08/25/24 16:00 LACTATION COORDINATOR.[email or web address] Anesthesia Complication Comment: Post-operative progress note Anesthesia: Postop Eval II Evaluation Mental status: Awake and Calm Pain Level: 4 nausea: No Vomiting: No Complications Anesthesia Complication: No
--- NOTE | 2024-08-25 21:31 | PCM.POSTANE2 ---
Anesthesia Postop Eval I Sum Postop Eval Completion status Anesthesia document: Postop Eval 1 completed: Yes Anesthesia Postop Eval I Summary Anesthesia Postop Eval I Summary: Anesthesia Postop Eval I: Assessment Summary Airway patent Yes 08/25/24 16:00 BLAST FURNACE AUXILIARIES SUPERVISOR.[email or web address] Spontaneous unlabored Yes 08/25/24 16:00 BLAST FURNACE AUXILIARIES SUPERVISOR.[email or web address] respirations Mental status Awake,Calm 08/25/24 16:00 BLAST FURNACE AUXILIARIES SUPERVISOR.[email or web address] nausea No 08/25/24 16:00 BLAST FURNACE AUXILIARIES SUPERVISOR.[email or web address] Vomiting No 08/25/24 16:00 BLAST FURNACE AUXILIARIES SUPERVISOR.[email or web address] Anesthesia Postop Eval I: Fluid Summary Crystalloid volume administer 1,200 08/25/24 16:00 BLAST FURNACE AUXILIARIES SUPERVISOR.[email or web address] (ml) Colloids volume administered ( ml) Blood Product volume administered (ml) Total IV fluid infused 1,200 08/25/24 16:00 BLAST FURNACE AUXILIARIES SUPERVISOR.[email or web address] Anesthesia Postop Eval I: Summary Notes Anesthesia Complication No 08/25/24 16:00 BLAST FURNACE AUXILIARIES SUPERVISOR.[email or web address] Anesthesia Complication Comment: Post-operative progress note Anesthesia: Postop Eval II Evaluation Mental status: Awake and Calm Pain Level: 4 nausea: No Vomiting: No Complications Anesthesia Complication: No
[2024-08-25] MEDS: 0.9% Normal Saline (250mL Bag) 250 ML 15 ML IV (22:47)
[2024-08-26 02:46] VITALS: BP 128/60; PULSE 65; RESP 18; TEMP 36.3; O2SAT 98
[2024-08-26 06:07] VITALS: BP 123/63; PULSE 74; RESP 18; TEMP 36.6; O2SAT 94
[2024-08-26] MEDS: Ampicillin/Sulbactam 3 GM in 0.9% Normal Saline (100mL MB+) 100 ML IV ×2 (06:13→14:35)
--- NOTE | 2024-08-26 07:09 | PN.HOSP_ITS ---
Reason for Visit Reason for Visit: Diagnoses Pyogenic arthritis, unspecified (08/24/24) Infection and inflammatory reaction due to other internal joint prosthesis, initial encounter (08/24/24) Presence of left artificial shoulder joint (08/24/24) Subjective Subjective Bleeding from the surgical site and having had the bandage replaced several times already. Noted increased edema of the upper extremities bilaterally. Objective Data Objective Data Vital Signs: Vital Signs Temp Pulse Resp BP Pulse Ox O2 Del Method O2 Flow Rate 36.6 C 74 18 123/63 H 94 CPAP 2 08/26/24 06:07 08/26/24 06:07 08/26/24 06:07 08/26/24 06:07 08/26/24 06:07 08/26/24 06:07 08/25/24 20:42 Oxygen Flow Rate (L/min) 2 Oxygen Delivery Method CPAP Weight: 100 kg Body Mass Index (BMI) 39.0 Intake & Output: Intake and Output for Last 24 Hours 08/24/24 08/25/24 08/26/24 23:59 23:59 23:59 Intake Total 1890 / 1890 1861.25 / 2061.25 800 / 800 Output Total 300 / 300 0 / 0 Balance 1890 / 1890 1561.25 / 1761.25 800 / 800 Lab / Micro Data 08/26/24 08:00 08/26/24 08:00 Micro: Microbiology 08/24/24 19:26 Fluid - Bursa Gram Stain - Final Radiography Diagnostic Testing: Radiology Impression Shoulder X-Ray 08/25/24 16:20 IMPRESSION: Postoperative examination shows interval removal of the left shoulder prosthesis, with methylmethacrylate antibiotic spacer placed at the freed portions of the proximal left humerus including the left humeral head. No fracture or dislocation is seen. Reading Location: [address] Physical Exam Const alert and no apparent distress HEENT head/scalp atraumatic Resp normal respiratory effort and no retractions Extremity Extremity Narrative: Right shoulder incision bandage but there is noted blood pooling up in the lower part of the bandage. Neuro Sensorium / Orientation: awake and alert Assessment & Plan Assessment/Plan (1) Septic joint of left shoulder region: PLAN: Prosthetic joint infection. Antibiotics currently with vancomycin and ampicillin/sulbactam. Cultures pending. Aspirate Gram stain negative. Culture pending. Blood cultures pending. 08/25: patient underwent Left shoulder revision arthroplasty with explantation of reverse total shoulder arthroplasty and placement of articulating antibiotic spacer. Left shoulder irrigation and debridement with debridement of skin, subcutaneous tissue, fascia, muscle and bone. ID input appreciated. PLAN: Plan Chronic medical conditions: ? Class II obesity: BMI 39 on admit. Complicates hospital course, care and prognosis. ? History of CAD with stenting, hypertension, hyperlipidemia: Mildly hypertensive to the 140s systolic in the ED. Continue home amlodipine, doxazosin and fenofibrate. Hold home baby aspirin given plan for procedure as above, restart when able. ? Hypothyroidism: Continue home Synthroid. ? History of bladder cancer s/p resection, history of enlarged prostate s/p TURP DVT prophylaxis: Lovenox Charges/Coding Visit Charges Inpatient E&M: 88115 Subs Hosp L2
[2024-08-26 08:24] VITALS: BP 136/71; PULSE 98; RESP 20; TEMP 36.6; O2SAT 97
[2024-08-26 08:45] LABS: Hematocrit 32.0 % (40-54); Hemoglobin 10.4 g/dL (13.0-16.5); Immature Granulocytes Count 0.040 X10^3/uL (0.0-0.0); Mean Corp Hgb Conc 32.5 g/dL (32-36); Mean Corpuscular Volume 91.4 fL (80-94); Mean Platelet Vol. 9.8 fl (6.2-12.0); NRBC Flagged by Analyzer 0 % (0-5); Platelet Count 302 K/mm3 (150-450); RBC Distribution Width CV 14.6 % (11.6-14.6); RBC Distribution Width SD 49.1 fl (35.1-43.9); Red Blood Count 3.50 M/mm3 (4.6-6.2); White Blood Count 10.4 K/mm3 (4.4-11.0)
[2024-08-26 09:12] LABS: Anion Gap 9 (5-15); BUN 11 mg/dL (4-19); BUN/Creat Ratio 14.5 RATIO (10-20); Calcium,Total 8.3 mg/dL (7.6-11.0); Carbon Dioxide 24.0 mmol/L (21.0-32.0); Chloride 102 mmol/L (98-108); Estimated Creatinine Clearance 68.21 ml/min (50-250); Glucose 110 mg/dL (70-99); Potassium 4.2 mmol/L (3.3-5.1); Vancomycin, Trough Level 10.9 ug/mL (5.0-15.0)
--- NOTE | 2024-08-26 09:30 | PCM.RX.CS ---
Consult Antibiotic Management Pharmacy has been consulted to manage selected antibiotic: Vancomycin Type of Intervention Type of Consult: Follow-up Suspected Infection Suspected Infection: Other (Septic joint) Labs Labs: Sodium 135 mmol/L (133-145) 08/26/24 08:00 Potassium 4.2 mmol/L (3.3-5.1) 08/26/24 08:00 Chloride 102 mmol/L (98-108) 08/26/24 08:00 Carbon Dioxide 24.0 mmol/L (21.0-32.0) 08/26/24 08:00 Anion Gap 9 (5-15) 08/26/24 08:00 BUN 11 mg/dL (4-19) 08/26/24 08:00 Creatinine 0.73 mg/dL (0.70-1.20) 08/26/24 08:00 Est GFR (MDRD) Non-Af 89 (>60) 08/26/24 08:00 BUN/Creatinine Ratio 14.5 RATIO (10-20) 08/26/24 08:00 Glucose 110 mg/dL (70-99) H 08/26/24 08:00 Vancomycin Trough 10.9 ug/mL (5.0-15.0) 08/26/24 08:00 Microbiology Microbiology: Microbiology 08/24/24 19:26 Fluid - Bursa Gram Stain - Final Goal Trough Goal Trough: 15-20 mcg/mL Pharmacy Plan for Drug Dosing Pharmacy Plan for Drug Dosing: VANCOMYCIN LEVEL RECEIVED Current Vancomycin Dose: 1000mg Q12H Number of Doses Received: 1000mg x2 Vancomycin Level: 10.9 Hours Since Last Dose: 9 Renal Function: sCr 0.73 Renal Function Trend: stable Lab/Micro: pending Vancomycin Plan/Comments: Increase Vancomycin dosing regimen to 1500mg Q12H Pending Level: 08/27/24 @ 21:30 Pharmacy Service will continue to monitor and adjust dosing as required. Follow-Up Labs Follow-Up Labs: Trough: Vancomycin (08/27/24 @ 21:30)
[2024-08-26] MEDS: 0.9% Saline Lock 10 ML Syringe IV (10:54)
[2024-08-26] MEDS: Vancomycin HCl 1,500 MG in 0.9% Normal Saline (500mL Bag) 500 ML 250 MG IV ×2 (10:56→21:47)
--- NOTE | 2024-08-26 10:57 | PCM.PN.ID ---
Physical Exam Narrative Feeling better, pain controlled, no fever, no n/v/d. 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 Aspiration cx and bcx pending. Taken to OR 08/25/[address] Aquino for I&D and spacer placement. Surg cx pending. Cont empiric vanc/unasyn. Will order picc for planned 6 weeks iv abx at discharge Will follow
--- NOTE | 2024-08-26 11:46 | PCM.PN.ORT ---
Subjective Subjective Patient is s/p explantation left reverse total shoulder arthroplasty with implantation of antibiotic spacer with Dr. Aquino 08/25/2024. Patient presented to the office after 1 month of redness and swelling at the incision. He was found to have significant erythema edema and a collection of purulent material at the proximal portion of the incision.. Dr. Aquino decided to take patient to the operative room yesterday prior to elective procedure patient developed fevers and further malaise and was admitted 08/24/2024. Patient resting comfortably in bed. Rates pain 3/ 10 at rest. With movement 5 /10. States taking tylenol, and oxycodone and ice help to relieve pain. Patient has been up with therapy. Sling at all times nonweightbearing to left upper extremity. Okay for elbow range of motion and pendulums. Afebrile, no chest pain, shortness of breath, negative calf pain/ erythema, and no other signs of DVT. augusto did have one dressing change this morning, but has not saturated through since. Objective Data Objective Data Vital Signs: Vital Signs Temp Pulse Resp BP Pulse Ox O2 Del Method O2 Flow Rate 97.8 F 98 20 H 136/71 H 97 Room Air 2 08/26/24 08:24 08/26/24 08:24 08/26/24 08:24 08/26/24 08:24 08/26/24 08:24 08/26/24 08:24 08/25/24 20:42 Oxygen Flow Rate (L/min) 2 Oxygen Delivery Method Room Air Weight: 100 kg Body Mass Index (BMI) 39.0 Intake & Output: Intake and Output for Last 24 Hours 08/24/24 08/25/24 08/26/24 23:59 23:59 23:59 Intake Total 1890 / 1890 1861.25 / 2061.25 900 / 900 Output Total 300 / 300 0 / 0 Balance 1890 / 1890 1561.25 / 1761.25 900 / 900 Lab / Micro Data 08/26/24 08:00 08/26/24 08:00 Labs: Laboratory Results - last 24 hr 08/26/24 08:00: WBC 10.4, RBC 3.50 L, Hgb 10.4 L, Hct 32.0 L, MCV 91.4, MCH 29.7, MCHC 32.5, RDW Std Deviation 49.1 H, RDW Coeff of Nehemias 14.6, Plt Count 302, MPV 9.8, Immature Gran % (Auto) 0.400, Neut % (Auto) 83.5 H, Lymph % (Auto) 8.8 L, [place] % (Auto) 7.1, Eos % (Auto) 0.1, Baso % (Auto) 0.1, Absolute Neuts (auto) 8.7 H, Absolute Lymphs (auto) 0.92, Nucleated RBC % 0, Sodium 135, Potassium 4.2, Chloride 102, Carbon Dioxide 24.0, Anion Gap 9, BUN 11, Creatinine 0.73, Estim Creat Clear Calc 68.21, Est GFR (MDRD) Non-Af 89, BUN/Creatinine Ratio 14.5, Glucose 110 H, Calcium 8.3, Vancomycin Trough 10.9 Micro: Microbiology 08/24/24 19:26 Fluid - Bursa Gram Stain - Final 08/24/24 19:26 Fluid - Bursa Body Fluid Culture - Preliminary No growth-Final to follow Radiography Diagnostic Testing: Radiology Impression Shoulder X-Ray 08/25/24 16:20 IMPRESSION: Postoperative examination shows interval removal of the left shoulder prosthesis, with methylmethacrylate antibiotic spacer placed at the freed portions of the proximal left humerus including the left humeral head. No fracture or dislocation is seen. Reading Location: [address] Physical Exam Narrative Patient resting comfortably in bed Sling in place No signs of acute distress Satting well on room air Limb is warm to touch, Sensation intact throughout entire upper extremity, Motor intact to radial, median, ulnar nerve distribution Radial pulses bounding Dressing clear dry intact. this is a new dressing which was changed this morning from original OR dressing from saturation. Calf nontender to palpation, no erythema, no edema. 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 1. Will continue PT today. Nonweightbearing to left upper extremity. Sling at all times. Okay for elbow range of motion and pendulums. 2. Ultimate plan for discharge will pending hospitalist recommendations and infectious disease recommendations. Infectious disease recommendations: Cont empiric vanc/unasyn. Will order picc for planned 6 weeks iv abx at discharge 3. cultures :pending 4. Patient will follow up for post op appointment with post orthopedics 2 weeks after surgery in our office this will need to be arranged. Ultimate determination of plan for possible second stage revision arthroplasty versus permanent antibiotic spacer based on patient discomfort, function and ability to clear infection. 5. Patient has outpatient PT may be scheduled for 2 weeks after surgery. 6. WBC 10.4 no acute reactive leukocytosis 7. H/H 10.4/32.0: post operavtive anemia secondary to acute blood loss intraoperatively. Patient is asymptomatic at this time. No intraoperative complications. will continue to monitor. no acute interventions. Ultimately to be determined by hospitalist. 8. DVT prophylaxis : Lovenox daily 9. Pain control: patient instructed to take tylenol 500mg 2 tablets TID. and oxycodone 1-2 tablets every 4-6 hours only as needed for pain control. 10. ok to remove post op dressing. post op day 5
[2024-08-26 14:34] VITALS: BP 134/94; PULSE 74; RESP 16; TEMP 36.6; O2SAT 98
[2024-08-26 20:25] VITALS: BP 139/71; PULSE 69; RESP 18; TEMP 36.8; O2SAT 98
[2024-08-27] MEDS: Ampicillin/Sulbactam 3 GM in 0.9% Normal Saline (100mL MB+) 100 ML IV ×5 (01:39→23:00)
[2024-08-27 01:43] VITALS: BP 131/72; PULSE 66; RESP 16; TEMP 36.8; O2SAT 97
[2024-08-27 06:09] LABS: Hematocrit 29.0 % (40-54); Hemoglobin 9.5 g/dL (13.0-16.5); Immature Granulocytes Count 0.030 X10^3/uL (0.0-0.0); Mean Corp Hgb Conc 32.8 g/dL (32-36); Mean Corpuscular Volume 91.5 fL (80-94); Mean Platelet Vol. 9.7 fl (6.2-12.0); NRBC Flagged by Analyzer 0 % (0-5); Platelet Count 241 K/mm3 (150-450); RBC Distribution Width CV 14.8 % (11.6-14.6); RBC Distribution Width SD 50.0 fl (35.1-43.9); Red Blood Count 3.17 M/mm3 (4.6-6.2); White Blood Count 6.1 K/mm3 (4.4-11.0)
[2024-08-27 06:39] LABS: Anion Gap 8 (5-15); BUN 11 mg/dL (4-19); BUN/Creat Ratio 13.9 RATIO (10-20); Calcium,Total 8.1 mg/dL (7.6-11.0); Carbon Dioxide 25.9 mmol/L (21.0-32.0); Chloride 105 mmol/L (98-108); Estimated Creatinine Clearance 68.21 ml/min (50-250); Glucose 94 mg/dL (70-99); Potassium 4.2 mmol/L (3.3-5.1)
--- NOTE | 2024-08-27 07:25 | PN.HOSP_ITS ---
Reason for Visit Reason for Visit: Diagnoses Pyogenic arthritis, unspecified (08/24/24) Infection and inflammatory reaction due to other internal joint prosthesis, initial encounter (08/24/24) Presence of left artificial shoulder joint (08/24/24) Subjective Subjective Still bleeding from his left shoulder. Objective Data Objective Data Vital Signs: Vital Signs Temp Pulse Resp BP Pulse Ox O2 Del Method O2 Flow Rate 36.8 C 66 16 131/72 H 97 Room Air 2 08/27/24 01:43 08/27/24 01:43 08/27/24 01:43 08/27/24 01:43 08/27/24 01:43 08/27/24 01:43 08/25/24 20:42 Oxygen Flow Rate (L/min) 2 Oxygen Delivery Method Room Air Weight: 100 kg Body Mass Index (BMI) 39.0 Intake & Output: Intake and Output for Last 24 Hours 08/25/24 08/26/24 08/27/24 23:59 23:59 23:59 Intake Total 1861.25 / 2061.25 2260 / 3490 1430 / 1430 Output Total 300 / 300 0 / 0 Balance 1561.25 / 1761.25 2260 / 3490 1430 / 1430 Lab / Micro Data 08/27/24 05:16 08/27/24 05:16 Labs: Laboratory Results - last 24 hr 08/26/24 08:00: WBC 10.4, RBC 3.50 L, Hgb 10.4 L, Hct 32.0 L, MCV 91.4, MCH 29.7, MCHC 32.5, RDW Std Deviation 49.1 H, RDW Coeff of Nehemias 14.6, Plt Count 302, MPV 9.8, Immature Gran % (Auto) 0.400, Neut % (Auto) 83.5 H, Lymph % (Auto) 8.8 L, [place] % (Auto) 7.1, Eos % (Auto) 0.1, Baso % (Auto) 0.1, Absolute Neuts (auto) 8.7 H, Absolute Lymphs (auto) 0.92, Nucleated RBC % 0, Sodium 135, Potassium 4.2, Chloride 102, Carbon Dioxide 24.0, Anion Gap 9, BUN 11, Creatinine 0.73, Estim Creat Clear Calc 68.21, Est GFR (MDRD) Non-Af 89, BUN/Creatinine Ratio 14.5, Glucose 110 H, Calcium 8.3, Vancomycin Trough 10.9 08/27/24 05:16: WBC 6.1, RBC 3.17 L, Hgb 9.5 L, Hct 29.0 L, MCV 91.5, MCH 30.0, MCHC 32.8, RDW Std Deviation 50.0 H, RDW Coeff of Nehemias 14.8 H, Plt Count 241, MPV 9.7, Immature Gran % (Auto) 0.500, Neut % (Auto) 64.4, Lymph % (Auto) 18.6 L, [place] % (Auto) 10.0, Eos % (Auto) 6.2 H, Baso % (Auto) 0.3, Absolute Neuts (auto) 4.0, Absolute Lymphs (auto) 1.14, Nucleated RBC % 0, Sodium 139, Potassium 4.2, Chloride 105, Carbon Dioxide 25.9, Anion Gap 8, BUN 11, Creatinine 0.77, Estim Creat Clear Calc 68.21, Est GFR (MDRD) Non-Af 87, BUN/Creatinine Ratio 13.9, Glucose 94, Calcium 8.1 Micro: Microbiology 08/25/24 Unknown Tissue - Shoulder Gram Stain - Final 08/25/24 Unknown Tissue - Shoulder Gram Stain - Final 08/25/24 Unknown Wound - Shoulder Gram Stain - Final 08/25/24 Unknown Wound - Aerobic Swab Gram Stain - Final 08/25/24 Unknown Tissue - Shoulder Gram Stain - Final 08/25/24 Unknown Tissue - Shoulder Gram Stain - Final 08/24/24 19:26 Fluid - Bursa Gram Stain - Final 08/24/24 19:26 Fluid - Bursa Body Fluid Culture - Preliminary No growth-Final to follow Physical Exam Const alert and no apparent distress HEENT head/scalp atraumatic and moist oral mucous membranes Resp normal respiratory effort, no retractions, no use of accessory muscles and clear to auscultation bilaterally Cardio regular rate and regular rhythm Extremity Extremity Narrative: Left shoulder manage in a sling. Neuro no focal motor deficits Sensorium / Orientation: awake and alert Assessment & Plan Assessment/Plan (1) Septic joint of left shoulder region: PLAN: Prosthetic joint infection. Antibiotics currently with vancomycin and ampicillin/sulbactam. Cultures pending. Aspirate and surgical cultures pending. Blood cultures pending. 08/25: patient underwent Left shoulder revision arthroplasty with explantation of reverse total shoulder arthroplasty and placement of articulating antibiotic spacer. Left shoulder irrigation and debridement with debridement of skin, subcutaneous tissue, fascia, muscle and bone. ID input appreciated. Patient with bleeding from his surgical incision requiring frequent changing of the dressing. Patient has enoxaparin ordered for VTE prophylaxis but has not yet received that. That will be discontinued anyways and put the patient on SCDs for VTE prophylaxis. PLAN: Plan Chronic medical conditions: ? Class II obesity: BMI 39 on admit. Complicates hospital course, care and prognosis. ? History of CAD with stenting, hypertension, hyperlipidemia: Mildly hypertensive to the 140s systolic in the ED. Continue home amlodipine, doxazosin and fenofibrate. Hold home baby aspirin given plan for procedure as above, restart when able. ? Hypothyroidism: Continue home Synthroid. ? History of bladder cancer s/p resection, history of enlarged prostate s/p TURP DVT prophylaxis: SCDs Charges/Coding Visit Charges Inpatient E&M: 83962 Subs Hosp L2
[2024-08-27 08:50] VITALS: BP 112/75; PULSE 53; RESP 16; TEMP 36.7; O2SAT 93
--- NOTE | 2024-08-27 09:44 | PN.ORTHO_ITS ---
Subjective Subjective Patient seen and examined. Denies new complaints. Had a bowel movement this morning. Denies any fevers, chills, nausea vomiting, chest pain shortness of breath. Pain controlled with current pain regimen. Objective Data Objective Data Vital Signs: Vital Signs Temp Pulse Resp BP Pulse Ox O2 Del Method O2 Flow Rate 98.1 F 53 L 16 112/75 93 Room Air 2 08/27/24 08:50 08/27/24 08:50 08/27/24 08:50 08/27/24 08:50 08/27/24 08:50 08/27/24 08:50 08/27/24 07:53 Oxygen Flow Rate (L/min) 2 Oxygen Delivery Method Room Air Weight: 220 lb 7.396 oz Body Mass Index (BMI) 39.0 Intake & Output: Intake and Output for Last 24 Hours 08/25/24 08/26/24 08/27/24 23:59 23:59 23:59 Intake Total 1861.25 / 2061.25 2260 / 3490 1430 / 1430 Output Total 300 / 300 0 / 0 Balance 1561.25 / 1761.25 2260 / 3490 1430 / 1430 Lab / Micro Data 08/27/24 05:16 08/27/24 05:16 Labs: Laboratory Results - last 24 hr 08/27/24 05:16: WBC 6.1, RBC 3.17 L, Hgb 9.5 L, Hct 29.0 L, MCV 91.5, MCH 30.0, MCHC 32.8, RDW Std Deviation 50.0 H, RDW Coeff of Nehemias 14.8 H, Plt Count 241, MPV 9.7, Immature Gran % (Auto) 0.500, Neut % (Auto) 64.4, Lymph % (Auto) 18.6 L, [place] % (Auto) 10.0, Eos % (Auto) 6.2 H, Baso % (Auto) 0.3, Absolute Neuts (auto) 4.0, Absolute Lymphs (auto) 1.14, Nucleated RBC % 0, Sodium 139, Potassium 4.2, Chloride 105, Carbon Dioxide 25.9, Anion Gap 8, BUN 11, Creatinine 0.77, Estim Creat Clear Calc 68.21, Est GFR (MDRD) Non-Af 87, BUN/Creatinine Ratio 13.9, Glucose 94, Calcium 8.1 Micro: Microbiology 08/24/24 19:37 Blood Culture (Wb) - Left Hand Blood Culture - Preliminary No growth in 48 hours. 08/24/24 19:19 Blood Culture (Wb) - Anticubital Left Blood Culture - Preliminary No growth in 48 hours. 08/25/24 Unknown Tissue - Shoulder Gram Stain - Final 08/25/24 Unknown Tissue - Shoulder Gram Stain - Final 08/25/24 Unknown Wound - Shoulder Gram Stain - Final 08/25/24 Unknown Wound - Aerobic Swab Gram Stain - Final 08/25/24 Unknown Tissue - Shoulder Gram Stain - Final 08/25/24 Unknown Tissue - Shoulder Gram Stain - Final 08/24/24 19:26 Fluid - Bursa Gram Stain - Final 08/24/24 19:26 Fluid - Bursa Body Fluid Culture - Preliminary No growth-Final to follow Physical Exam Narrative General - A&Ox3, NAD. VSS/AF. Left upper Extremity - SILT & 5/5 in radial, ulnar, musculocutaneous, axillary, and median nerve distributions. Radial, ulnar pulses 2+. Compartments soft and compressible. BCR in finger tips. Serosanguineous drainage noted on dressing, saturated. Dressing removed and changed. Active drainage noted in the midportion of the wound with no obvious dehiscence. 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 Serosanguineous drainage persists. Recommend continue dry sterile dressing changes. -Cultures demonstrate no growth to date. Plan to hold cultures for 2 weeks due to concern for possible C acnes infection. Continue broad-spectrum antibiotics. ID following. Plan for PICC line and definitive antibiotic recommendations pending cultures. - Pain control - Medicine following for medical management - PT/OT - DVT PPX -Lovenox, SCDs, early mobilization - Case management - D/C planning
[2024-08-27] MEDS: Vancomycin HCl 1,500 MG in 0.9% Normal Saline (500mL Bag) 500 ML 250 MG IV ×2 (09:46→23:08)
[2024-08-27 11:37] VITALS: BP 166/80; PULSE 78; RESP 16; TEMP 36.7; O2SAT 98
[2024-08-27] MEDS: 0.9% Normal Saline (250mL Bag) 250 ML 15 ML IV (12:54)
[2024-08-27 16:23] VITALS: BP 105/81; PULSE 81; RESP 16; TEMP 37.3; O2SAT 98
[2024-08-27 21:01] VITALS: BP 134/47; PULSE 75; RESP 16; TEMP 36.7; O2SAT 97
[2024-08-27 22:20] LABS: Vancomycin, Trough Level 16.2 ug/mL (5.0-15.0)
--- NOTE | 2024-08-27 23:11 | PCM.RX.CS ---
Consult Antibiotic Management Pharmacy has been consulted to manage selected antibiotic: Vancomycin Type of Intervention Type of Consult: Follow-up Suspected Infection Suspected Infection: Other (prosthetic joint infection) Labs Labs: Sodium 139 mmol/L (133-145) 08/27/24 05:16 Potassium 4.2 mmol/L (3.3-5.1) 08/27/24 05:16 Chloride 105 mmol/L (98-108) 08/27/24 05:16 Carbon Dioxide 25.9 mmol/L (21.0-32.0) 08/27/24 05:16 Anion Gap 8 (5-15) 08/27/24 05:16 BUN 11 mg/dL (4-19) 08/27/24 05:16 Creatinine 0.77 mg/dL (0.70-1.20) 08/27/24 05:16 Est GFR (MDRD) Non-Af 87 (>60) 08/27/24 05:16 BUN/Creatinine Ratio 13.9 RATIO (10-20) 08/27/24 05:16 Glucose 94 mg/dL (70-99) 08/27/24 05:16 Vancomycin Trough 16.2 ug/mL (5.0-15.0) H 08/27/24 21:26 Microbiology Microbiology: Microbiology 08/25/24 Unknown Wound - Aerobic Swab Gram Stain - Final 08/24/24 19:26 Fluid - Bursa Gram Stain - Final 08/24/24 19:26 Fluid - Bursa Body Fluid Culture - Preliminary No growth-Final to follow 08/24/24 19:26 Fluid - Bursa Anaerobic Culture - Preliminary Checking for anaerobes, further studies to follow. 08/25/24 Unknown Tissue - Shoulder Gram Stain - Final 08/25/24 Unknown Tissue - Shoulder Gram Stain - Final 08/25/24 Unknown Wound - Shoulder Gram Stain - Final 08/25/24 Unknown Tissue - Shoulder Gram Stain - Final 08/25/24 Unknown Tissue - Shoulder Gram Stain - Final 08/24/24 19:37 Blood Culture (Wb) - Left Hand Blood Culture - Preliminary No growth in 48 hours. 08/24/24 19:19 Blood Culture (Wb) - Anticubital Left Blood Culture - Preliminary No growth in 48 hours. Pharmacy Plan for Drug Dosing Pharmacy Plan for Drug Dosing: VANCOMYCIN LEVEL RECEIVED Current Vancomycin Dose: 1500MG Q12 Number of Doses Received: 6 Vancomycin Level: 16.2 MG/DL Hours Since Last Dose: 11.5 Renal Function: SCr 0.77 mg/dL, CrCl 68 mL/min Renal Function Trend: improved Vancomycin Plan/Comments: 11.5 hour trough is therapeutic at 16.2 mg/dL (goal 15-20). Will continue current dosing and get a repeat level in 2 days. Pending Level: 08/29/24 @ 2318 Pharmacy Service will continue to monitor and adjust dosing as required.
[2024-08-28 03:00] VITALS: BP 154/74; PULSE 80; RESP 16; TEMP 36.6; O2SAT 98
[2024-08-28] MEDS: Ampicillin/Sulbactam 3 GM in 0.9% Normal Saline (100mL MB+) 100 ML IV ×3 (06:11→18:22)
[2024-08-28 06:12] LABS: Hematocrit 30.0 % (40-54); Hemoglobin 9.8 g/dL (13.0-16.5); Immature Granulocytes Count 0.020 X10^3/uL (0.0-0.0); Mean Corp Hgb Conc 32.7 g/dL (32-36); Mean Corpuscular Volume 90.9 fL (80-94); Mean Platelet Vol. 9.3 fl (6.2-12.0); NRBC Flagged by Analyzer 0 % (0-5); Platelet Count 259 K/mm3 (150-450); RBC Distribution Width CV 14.9 % (11.6-14.6); RBC Distribution Width SD 49.7 fl (35.1-43.9); Red Blood Count 3.30 M/mm3 (4.6-6.2); White Blood Count 5.5 K/mm3 (4.4-11.0)
[2024-08-28 06:35] LABS: Anion Gap 10 (5-15); BUN 10 mg/dL (4-19); BUN/Creat Ratio 12.3 RATIO (10-20); Calcium,Total 8.5 mg/dL (7.6-11.0); Carbon Dioxide 23.7 mmol/L (21.0-32.0); Chloride 105 mmol/L (98-108); Estimated Creatinine Clearance 67.37 ml/min (50-250); Glucose 104 mg/dL (70-99); Potassium 4.1 mmol/L (3.3-5.1)
--- NOTE | 2024-08-28 07:29 | PN.HOSP_ITS ---
Reason for Visit Reason for Visit: Diagnoses Pyogenic arthritis, unspecified (08/24/24) Infection and inflammatory reaction due to other internal joint prosthesis, initial encounter (08/24/24) Presence of left artificial shoulder joint (08/24/24) Subjective Subjective Still with bleeding from his incision but overall seems to be lessening. Objective Data Objective Data Vital Signs: Vital Signs Temp Pulse Resp BP Pulse Ox O2 Del Method O2 Flow Rate 36.7 C 75 16 134/47 H 97 CPAP 2 08/27/24 21:01 08/27/24 21:01 08/27/24 21:01 08/27/24 21:01 08/27/24 21:01 08/28/24 02:00 08/27/24 07:53 Oxygen Flow Rate (L/min) 2 Oxygen Delivery Method CPAP Weight: 100 kg Body Mass Index (BMI) 39.0 Intake & Output: Intake and Output for Last 24 Hours 08/26/24 08/27/24 08/28/24 23:59 23:59 23:59 Intake Total 2260 / 3490 3731.00 / 4081.00 880 / 880 Output Total 0 / 0 Balance 2260 / 3490 3731.00 / 4081.00 880 / 880 Lab / Micro Data 08/28/24 05:58 08/28/24 05:58 Labs: Laboratory Results - last 24 hr 08/27/24 21:26: Vancomycin Trough 16.2 H 08/28/24 05:58: WBC 5.5, RBC 3.30 L, Hgb 9.8 L, Hct 30.0 L, MCV 90.9, MCH 29.7, MCHC 32.7, RDW Std Deviation 49.7 H, RDW Coeff of Nehemias 14.9 H, Plt Count 259, MPV 9.3, Immature Gran % (Auto) 0.400, Neut % (Auto) 62.3, Lymph % (Auto) 18.5 L, [place] % (Auto) 10.1 H, Eos % (Auto) 8.3 H, Baso % (Auto) 0.4, Absolute Neuts (auto) 3.4, Absolute Lymphs (auto) 1.02, Nucleated RBC % 0, Sodium 138, Potassium 4.1, Chloride 105, Carbon Dioxide 23.7, Anion Gap 10, BUN 10, Creatinine 0.81, Estim Creat Clear Calc 67.37, Est GFR (MDRD) Non-Af 86, BUN/Creatinine Ratio 12.3, Glucose 104 H, Calcium 8.5 Micro: Microbiology 08/25/24 Unknown Wound - Aerobic Swab Gram Stain - Final 08/24/24 19:26 Fluid - Bursa Gram Stain - Final 08/24/24 19:26 Fluid - Bursa Body Fluid Culture - Preliminary No growth-Final to follow 08/24/24 19:26 Fluid - Bursa Anaerobic Culture - Preliminary Checking for anaerobes, further studies to follow. 08/25/24 Unknown Tissue - Shoulder Gram Stain - Final 08/25/24 Unknown Tissue - Shoulder Gram Stain - Final 08/25/24 Unknown Wound - Shoulder Gram Stain - Final 08/25/24 Unknown Tissue - Shoulder Gram Stain - Final 08/25/24 Unknown Tissue - Shoulder Gram Stain - Final 08/24/24 19:37 Blood Culture (Wb) - Left Hand Blood Culture - Preliminary No growth in 48 hours. 08/24/24 19:19 Blood Culture (Wb) - Anticubital Left Blood Culture - Preliminary No growth in 48 hours. Physical Exam Const alert and no apparent distress HEENT head/scalp atraumatic and moist oral mucous membranes Resp normal respiratory effort, no retractions, no use of accessory muscles and clear to auscultation bilaterally Cardio regular rate, regular rhythm, S1 normal heart sound and S2 normal heart sound GI normal to inspection, nondistended, normoactive bowel sounds, soft to palpation, non-tender and non-distended Extremity Extremity Narrative: Left shoulder incision appears to be clean and intact. No active bleeding noted. Dressing was pulled back at the more distal region and was no bleeding at that time. Neuro Sensorium / Orientation: awake and alert Assessment & Plan Assessment/Plan (1) Septic joint of left shoulder region: PLAN: Prosthetic joint infection. Antibiotics currently with vancomycin and ampicillin/sulbactam. Cultures pending. Aspirate and surgical cultures pending. Blood cultures pending. 08/25: patient underwent Left shoulder revision arthroplasty with explantation of reverse total shoulder arthroplasty and placement of articulating antibiotic spacer. Left shoulder irrigation and debridement with debridement of skin, subcutaneous tissue, fascia, muscle and bone. ID input appreciated. Patient with bleeding from his surgical incision requiring frequent changing of the dressing. Patient has enoxaparin ordered for VTE prophylaxis but has not yet received that. That will be discontinued anyways and put the patient on SCDs for VTE prophylaxis. PICC is already been placed. Anticipating 6 weeks of IV antibiotics but determination of the discharge antibiotics still to be determined PLAN: Plan Chronic medical conditions: ? Class II obesity: BMI 39 on admit. Complicates hospital course, care and prognosis. ? History of CAD with stenting, hypertension, hyperlipidemia: Mildly hypertensive to the 140s systolic in the ED. Continue home amlodipine, doxazosin and fenofibrate. Hold home baby aspirin given plan for procedure as above, restart when able. ? Hypothyroidism: Continue home Synthroid. ? History of bladder cancer s/p resection, history of enlarged prostate s/p TURP DVT prophylaxis: SCDs Charges/Coding Visit Charges Inpatient E&M: 60538 Subs Hosp L2
[2024-08-28 08:00] VITALS: PULSE 70; RESP 18; O2SAT 96
[2024-08-28 08:15] VITALS: BP 144/70; PULSE 70; RESP 18; TEMP 36.6; O2SAT 96
[2024-08-28] MEDS: Vancomycin HCl 1,500 MG in 0.9% Normal Saline (500mL Bag) 500 ML 250 MG IV ×2 (10:50→22:45)
--- NOTE | 2024-08-28 11:38 | PN.ORTHO_ITS ---
Subjective Subjective Patient seen and examined. Denies any fevers, chills, nausea vomiting, chest pain shortness of breath. Pain controlled with current pain regimen. Objective Data Objective Data Vital Signs: Vital Signs Temp Pulse Resp BP Pulse Ox O2 Del Method O2 Flow Rate 98 F 70 18 144/70 H 96 Room Air 2 08/28/24 08:15 08/28/24 08:15 08/28/24 08:15 08/28/24 08:15 08/28/24 08:15 08/28/24 08:15 08/27/24 07:53 Oxygen Flow Rate (L/min) 2 Oxygen Delivery Method Room Air Weight: 220 lb 7.396 oz Body Mass Index (BMI) 39.0 Intake & Output: Intake and Output for Last 24 Hours 08/26/24 08/27/24 08/28/24 23:59 23:59 23:59 Intake Total 2260 / 3490 3731.00 / 4081.00 980 / 980 Output Total 0 / 0 Balance 2260 / 3490 3731.00 / 4081.00 980 / 980 Lab / Micro Data 08/28/24 05:58 08/28/24 05:58 Labs: Laboratory Results - last 24 hr 08/27/24 21:26: Vancomycin Trough 16.2 H 08/28/24 05:58: WBC 5.5, RBC 3.30 L, Hgb 9.8 L, Hct 30.0 L, MCV 90.9, MCH 29.7, MCHC 32.7, RDW Std Deviation 49.7 H, RDW Coeff of Nehemias 14.9 H, Plt Count 259, MPV 9.3, Immature Gran % (Auto) 0.400, Neut % (Auto) 62.3, Lymph % (Auto) 18.5 L, M [place] % (Auto) 10.1 H, Eos % (Auto) 8.3 H, Baso % (Auto) 0.4, Absolute Neuts (auto) 3.4, Absolute Lymphs (auto) 1.02, Nucleated RBC % 0, Sodium 138, Potassium 4.1, Chloride 105, Carbon Dioxide 23.7, Anion Gap 10, BUN 10, Creatinine 0.81, Estim Creat Clear Calc 67.37, Est GFR (MDRD) Non-Af 86, BUN/Creatinine Ratio 12.3, Glucose 104 H, Calcium 8.5 Micro: Microbiology 08/25/24 Unknown Wound - Aerobic Swab Gram Stain - Final 08/25/24 Unknown Wound - Aerobic Swab Wound Culture - Preliminary No growth-Final to follow 08/24/24 19:26 Fluid - Bursa Gram Stain - Final 08/24/24 19:26 Fluid - Bursa Body Fluid Culture - Preliminary No growth-Final to follow 08/24/24 19:26 Fluid - Bursa Anaerobic Culture - Preliminary Checking for anaerobes, further studies to follow. 08/25/24 Unknown Tissue - Shoulder Gram Stain - Final 08/25/24 Unknown Tissue - Shoulder Gram Stain - Final 08/25/24 Unknown Wound - Shoulder Gram Stain - Final 08/25/24 Unknown Tissue - Shoulder Gram Stain - Final 08/25/24 Unknown Tissue - Shoulder Gram Stain - Final 08/24/24 19:37 Blood Culture (Wb) - Left Hand Blood Culture - Preliminary No growth in 48 hours. 08/24/24 19:19 Blood Culture (Wb) - Anticubital Left Blood Culture - Preliminary No growth in 48 hours. Physical Exam Narrative General - A&Ox3, NAD. VSS/AF. Left upper Extremity - SILT & 5/5 in radial, ulnar, musculocutaneous, axillary, and median nerve distributions. Radial, ulnar pulses 2+. Compartments soft and compressible. BCR in finger tips. Serosanguineous drainage noted on dressing. 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 He appears to be doing fine. Pain is controlled. -Cultures demonstrate no growth to date. Plan to hold cultures for 2 weeks due to concern for possible C acnes infection. Continue broad-spectrum antibiotics. ID following. Plan for PICC line and definitive antibiotic recommendations pending cultures. - Pain control - Medicine following for medical management - PT/OT - DVT PPX - Lovenox held yesterday, okay to be administered today,, SCDs, early mobilization - Case management - D/C planning
[2024-08-28 14:00] VITALS: PULSE 75; RESP 18; O2SAT 95
[2024-08-28 14:15] VITALS: BP 153/80; PULSE 67; RESP 18; TEMP 36.6; O2SAT 97
[2024-08-28] MEDS: 0.9% Normal Saline (250mL Bag) 250 ML 15 ML IV (18:23)
[2024-08-28 20:15] VITALS: BP 140/64; PULSE 74; RESP 18; TEMP 36.9; O2SAT 98
--- NOTE | 2024-08-28 22:04 | NURSING ---
2200 dose of Vanco not on unit called pharmacy to let them know.
[2024-08-29] MEDS: Ampicillin/Sulbactam 3 GM in 0.9% Normal Saline (100mL MB+) 100 ML IV ×3 (00:55→12:59)
[2024-08-29 02:15] VITALS: BP 142/78; PULSE 72; RESP 16; TEMP 36.7; O2SAT 96
--- NOTE | 2024-08-29 07:59 | PCM.PN.HOSP ---
Reason for Visit Chief Complaint: Left shoulder infection Subjective Subjective Had dressing changed this morning. Decreased edema overall. Objective Data Objective Data Vital Signs: Vital Signs Temp Pulse Resp BP Pulse Ox O2 Del Method O2 Flow Rate 36.7 C 72 16 142/78 H 96 CPAP 2 08/29/24 02:15 08/29/24 02:15 08/29/24 02:15 08/29/24 02:15 08/29/24 02:15 08/29/24 02:15 08/27/24 07:53 Oxygen Flow Rate (L/min) 2 Oxygen Delivery Method CPAP Weight: 100 kg Body Mass Index (BMI) 39.0 Intake & Output: Intake and Output for Last 24 Hours 08/27/24 08/28/24 08/29/24 23:59 23:59 23:59 Intake Total 3731.00 / 4081.00 2610 / 2610 730 / 730 Balance 3731.00 / 4081.00 2610 / 2610 730 / 730 Lab / Micro Data 08/28/24 05:58 08/28/24 05:58 Micro: Microbiology 08/25/24 Unknown Tissue - Shoulder Gram Stain - Final 08/25/24 Unknown Tissue - Shoulder Anaerobic Culture - Preliminary No growth in 48 hours. 08/25/24 Unknown Tissue - Shoulder Gram Stain - Final 08/25/24 Unknown Tissue - Shoulder Anaerobic Culture - Preliminary Checking for anaerobes, further studies to follow. 08/25/24 Unknown Wound - Aerobic Swab Gram Stain - Final 08/25/24 Unknown Wound - Aerobic Swab Wound Culture - Preliminary No growth-Final to follow 08/24/24 19:26 Fluid - Bursa Gram Stain - Final 08/24/24 19:26 Fluid - Bursa Body Fluid Culture - Preliminary No growth-Final to follow 08/24/24 19:26 Fluid - Bursa Anaerobic Culture - Preliminary Checking for anaerobes, further studies to follow. 08/25/24 Unknown Wound - Shoulder Gram Stain - Final 08/25/24 Unknown Tissue - Shoulder Gram Stain - Final 08/25/24 Unknown Tissue - Shoulder Gram Stain - Final 08/24/24 19:37 Blood Culture (Wb) - Left Hand Blood Culture - Preliminary No growth in 48 hours. 08/24/24 19:19 Blood Culture (Wb) - Anticubital Left Blood Culture - Preliminary No growth in 48 hours. Physical Exam Const alert and no apparent distress HEENT head/scalp atraumatic and moist oral mucous membranes Resp normal respiratory effort and no retractions Cardio regular rate, regular rhythm, S1 normal heart sound and S2 normal heart sound GI normal to inspection, nondistended, normoactive bowel sounds GI Narrative: obese. Extremity normal to inspection Neuro Sensorium / Orientation: awake and alert Speech: speech normal Assessment & Plan Assessment/Plan (1) Septic joint of left shoulder region: PLAN: Prosthetic joint infection. Antibiotics currently with vancomycin and ampicillin/sulbactam. Cultures pending. Aspirate and surgical cultures pending. Blood cultures pending. 08/25: patient underwent Left shoulder revision arthroplasty with explantation of reverse total shoulder arthroplasty and placement of articulating antibiotic spacer. Left shoulder irrigation and debridement with debridement of skin, subcutaneous tissue, fascia, muscle and bone. ID input appreciated. Patient with bleeding from his surgical incision requiring frequent changing of the dressing. Patient has enoxaparin ordered for VTE prophylaxis but has not yet received that. That will be discontinued anyways and put the patient on SCDs for VTE prophylaxis. PICC is already been placed. Anticipating 6 weeks of IV antibiotics but determination of the discharge antibiotics still to be determined PLAN: Plan Chronic medical conditions: ? Class II obesity: BMI 39 on admit. Complicates hospital course, care and prognosis. ? History of CAD with stenting, hypertension, hyperlipidemia: Mildly hypertensive to the 140s systolic in the ED. Continue home amlodipine, doxazosin and fenofibrate. Hold home baby aspirin given plan for procedure as above, restart when able. ? Hypothyroidism: Continue home Synthroid. ? History of bladder cancer s/p resection, history of enlarged prostate s/p TURP DVT prophylaxis: SCDs Charges/Coding Visit Charges Inpatient E&M: 73199 Subs Hosp L2
[2024-08-29 09:22] LABS: Pathologist Comment/Body Fluid Reviewed
--- NOTE | 2024-08-29 10:02 | PCM.PN.ORT ---
Subjective Subjective Patient seen and examined. Reports some chills overnight but denies fevers. Pain controlled. Denies chest pain, shortness of breath, nausea or vomiting. Some loose stool reported. Objective Data Objective Data Vital Signs: Vital Signs Temp Pulse Resp BP Pulse Ox O2 Del Method O2 Flow Rate 98.0 F 72 16 142/78 H 96 CPAP 2 08/29/24 02:15 08/29/24 02:15 08/29/24 02:15 08/29/24 02:15 08/29/24 02:15 08/29/24 02:15 08/27/24 07:53 Oxygen Flow Rate (L/min) 2 Oxygen Delivery Method CPAP Weight: 220 lb 7.396 oz Body Mass Index (BMI) 39.0 Intake & Output: Intake and Output for Last 24 Hours 08/27/24 08/28/24 08/29/24 23:59 23:59 23:59 Intake Total 3731.00 / 4081.00 2610 / 2610 730 / 730 Balance 3731.00 / 4081.00 2610 / 2610 730 / 730 Lab / Micro Data 08/28/24 05:58 08/28/24 05:58 Labs: Laboratory Results - last 24 hr 08/24/24 19:26: Fl Pathologist Comment Reviewed Micro: Microbiology 08/25/24 Unknown Tissue - Shoulder Gram Stain - Final 08/25/24 Unknown Tissue - Shoulder Anaerobic Culture - Preliminary No growth in 48 hours. 08/25/24 Unknown Tissue - Shoulder Gram Stain - Final 08/25/24 Unknown Tissue - Shoulder Anaerobic Culture - Preliminary Checking for anaerobes, further studies to follow. 08/25/24 Unknown Wound - Aerobic Swab Gram Stain - Final 08/25/24 Unknown Wound - Aerobic Swab Wound Culture - Preliminary No growth-Final to follow 08/24/24 19:26 Fluid - Bursa Gram Stain - Final 08/24/24 19:26 Fluid - Bursa Body Fluid Culture - Preliminary No growth-Final to follow 08/24/24 19:26 Fluid - Bursa Anaerobic Culture - Preliminary Checking for anaerobes, further studies to follow. 08/25/24 Unknown Wound - Shoulder Gram Stain - Final 08/25/24 Unknown Tissue - Shoulder Gram Stain - Final 08/25/24 Unknown Tissue - Shoulder Gram Stain - Final 08/24/24 19:37 Blood Culture (Wb) - Left Hand Blood Culture - Preliminary No growth in 48 hours. 08/24/24 19:19 Blood Culture (Wb) - Anticubital Left Blood Culture - Preliminary No growth in 48 hours. Physical Exam Narrative General - A&Ox3, NAD. VSS/AF. Left upper Extremity - SILT & 5/5 in radial, ulnar, musculocutaneous, axillary, and median nerve distributions. Radial, ulnar pulses 2+. Compartments soft and compressible. BCR in finger tips. Serosanguineous drainage noted on dressing. Dressing removed. No active drainage expressible. Well-approximated and well-perfused skin edges. 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 He appears to be doing fine. Pain is controlled. Drainage has slowed. Continue dry sterile dressing changes as needed. -Cultures demonstrate no growth to date. Single tissue sample demonstrating gram-positive cocci in clusters on the Gram stain. Plan to hold cultures for 2 weeks due to concern for possible C acnes infection. Stable for discharge from my standpoint once antibiotic recommendations are made by infectious disease. - Pain control - Medicine following for medical management - PT/OT - DVT PPX -transition patient to aspirin 81 mg twice daily, SCDs, early mobilization - Case management - D/C planning
[2024-08-29] MEDS: Vancomycin HCl 1,500 MG in 0.9% Normal Saline (500mL Bag) 500 ML 250 MG IV ×2 (10:09→22:45)
[2024-08-29 10:11] VITALS: BP 166/57; PULSE 70; RESP 16; TEMP 36.7; O2SAT 96
--- NOTE | 2024-08-29 13:19 | CASEMGMT ---
BEA PADILLA noted ID note from last week stating pt will need IV antibiotics. BEA PADILLA into pt room, pt would like a HHC list. Lives with , she is able to assist with IV antibiotics at home. Pt states he would like HHC for PT as well. Provided verbal list of infusion companies, Pt chose [facility] as provider of choice. BEA PADILLA asked [facility] enterprise resource planning consultant for HHC list.
--- NOTE | 2024-08-29 13:58 | CASEMGMT ---
Discharge Planning A list of HH providers including quality and resource use data and consistent with the patient's preferred geographic region, medical needs, and insurance network was created in [facility] Guide.? This list was provided to the RN RANDY. Nelly Martinez, Discharge Planning Asst.
--- NOTE | 2024-08-29 14:16 | CASEMGMT ---
BEA PADILLA printed HHC list, delivered to pt room. Pt chose 1. [facility] 2. [facility]. [facility] BEA PADILLA called [facility] and made referral, waiting on acceptance.
[2024-08-29 14:26] VITALS: BP 151/68; PULSE 73; RESP 16; TEMP 36.7; O2SAT 97
--- NOTE | 2024-08-29 14:43 | PCM.PN.ID ---
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 Aspiration cx and bcx ngtd. Taken to OR 08/25/[address] Aquino for I&D and spacer placement. Surg cx neg except for single cx with GPC on gram stain. Cont empiric vanc for 6 weeks iv abx at discharge, stop date 10/06/24 with weekly labs, ID followup in 2-3 weeks. D/w family preservation caseworker. Will follow
--- NOTE | 2024-08-29 14:58 | CASEMGMT ---
BEA PADILLA received call from [facility], able to accept pt. Informed RN RANDY pt will have a cost of $53.37/RN visit. BEA PADILLA will notify pt of this. Able to start care Thursday. BEA PADILLA notified hospitalist.
--- NOTE | 2024-08-29 15:40 | CASEMGMT ---
RN RANDY spoke with pt about [facility], provided verbal list of providers. Pt chose [facility] as provider of choice.
[2024-08-29 20:07] VITALS: BP 143/53; PULSE 72; RESP 16; TEMP 37.1; O2SAT 97
[2024-08-29] MEDS: Aspirin E.C. 81 MG Tablet PO (20:08)
[2024-08-29 22:21] LABS: Vancomycin, Trough Level 16.8 ug/mL (5.0-15.0)
[2024-08-29] MEDS: 0.9% Saline Lock 10 ML Syringe IV (22:45)
--- NOTE | 2024-08-29 22:49 | PCM.RX.CS ---
Consult Antibiotic Management Pharmacy has been consulted to manage selected antibiotic: Vancomycin Type of Intervention Type of Consult: Follow-up Labs Labs: Sodium 138 mmol/L (133-145) 08/28/24 05:58 Potassium 4.1 mmol/L (3.3-5.1) 08/28/24 05:58 Chloride 105 mmol/L (98-108) 08/28/24 05:58 Carbon Dioxide 23.7 mmol/L (21.0-32.0) 08/28/24 05:58 Anion Gap 10 (5-15) 08/28/24 05:58 BUN 10 mg/dL (4-19) 08/28/24 05:58 Creatinine 0.81 mg/dL (0.70-1.20) 08/28/24 05:58 Est GFR (MDRD) Non-Af 86 (>60) 08/28/24 05:58 BUN/Creatinine Ratio 12.3 RATIO (10-20) 08/28/24 05:58 Glucose 104 mg/dL (70-99) H 08/28/24 05:58 Vancomycin Trough 16.8 ug/mL (5.0-15.0) H 08/29/24 21:29 Microbiology Microbiology: Microbiology 08/25/24 Unknown Tissue - Shoulder Gram Stain - Final 08/25/24 Unknown Tissue - Shoulder Wound Culture - Preliminary No growth-Final to follow 08/25/24 Unknown Tissue - Shoulder Anaerobic Culture - Preliminary No growth in 48 hours. 08/25/24 Unknown Tissue - Shoulder Gram Stain - Final 08/25/24 Unknown Tissue - Shoulder Wound Culture - Preliminary No growth-Final to follow 08/25/24 Unknown Tissue - Shoulder Anaerobic Culture - Preliminary Checking for anaerobes, further studies to follow. 08/25/24 Unknown Wound - Shoulder Gram Stain - Final 08/25/24 Unknown Wound - Shoulder Wound Culture - Preliminary No growth-Final to follow 08/25/24 Unknown Wound - Shoulder Anaerobic Culture - Preliminary Checking for anaerobes, further studies to follow. 08/25/24 Unknown Tissue - Shoulder Gram Stain - Final 08/25/24 Unknown Tissue - Shoulder Wound Culture - Preliminary No growth-Final to follow 08/25/24 Unknown Tissue - Shoulder Anaerobic Culture - Preliminary No growth in 48 hours. 08/25/24 Unknown Tissue - Shoulder Gram Stain - Final 08/25/24 Unknown Tissue - Shoulder Wound Culture - Preliminary No growth-Final to follow 08/25/24 Unknown Tissue - Shoulder Anaerobic Culture - Preliminary Checking for anaerobes, further studies to follow. 08/25/24 Unknown Wound - Aerobic Swab Gram Stain - Final 08/25/24 Unknown Wound - Aerobic Swab Wound Culture - Preliminary No growth-Final to follow 08/25/24 Unknown Wound - Aerobic Swab Anaerobic Culture - Preliminary Checking for anaerobes, further studies to follow. 08/24/24 19:26 Fluid - Bursa Gram Stain - Final 08/24/24 19:26 Fluid - Bursa Body Fluid Culture - Preliminary No growth-Final to follow 08/24/24 19:26 Fluid - Bursa Anaerobic Culture - Preliminary Checking for anaerobes, further studies to follow. 08/24/24 19:37 Blood Culture (Wb) - Left Hand Blood Culture - Preliminary No growth in 48 hours. 08/24/24 19:19 Blood Culture (Wb) - Anticubital Left Blood Culture - Preliminary No growth in 48 hours. Goal Trough Goal Trough: 15-20 mcg/mL Pharmacy Plan for Drug Dosing Pharmacy Plan for Drug Dosing: Pharmacy Service will continue to monitor and adjust dosing as required. TROUGH 16.8 @ 11.5 HOURS. NO CHANGES, FOLLOW UP TROUGH IN 2 DAYS Follow-Up Labs Follow-Up Labs: Trough: Vancomycin Date/Time Labs Ordered Labs to be done on [date and time ordered]: 08/31 @ 9908
[2024-08-30 02:20] VITALS: BP 120/103; PULSE 72; RESP 16; TEMP 36.5; O2SAT 95
--- NOTE | 2024-08-30 07:42 | PCM.PN.HOSP ---
Reason for Visit Chief Complaint: Left shoulder infection Subjective Subjective No new events. No further drainage from his incision since yesterday. Objective Data Objective Data Vital Signs: Vital Signs Temp Pulse Resp BP Pulse Ox O2 Del Method O2 Flow Rate 36.5 C L 72 16 120/103 H 95 CPAP 2 08/30/24 02:20 08/30/24 02:20 08/30/24 02:20 08/30/24 02:20 08/30/24 02:20 08/30/24 02:20 08/27/24 07:53 Oxygen Flow Rate (L/min) 2 Oxygen Delivery Method CPAP Weight: 100 kg Body Mass Index (BMI) 39.0 Intake & Output: Intake and Output for Last 24 Hours 08/28/24 08/29/24 08/30/24 23:59 23:59 23:59 Intake Total 2610 / 2610 1760 / 1760 730 / 730 Balance 2610 / 2610 1760 / 1760 730 / 730 Lab / Micro Data 08/28/24 05:58 08/28/24 05:58 Labs: Laboratory Results - last 24 hr 08/24/24 19:26: Fl Pathologist Comment Reviewed 08/29/24 21:29: Vancomycin Trough 16.8 H Micro: Microbiology 08/24/24 19:37 Blood Culture (Wb) - Left Hand Blood Culture - Final No growth in 5 days. 08/24/24 19:19 Blood Culture (Wb) - Anticubital Left Blood Culture - Final No growth in 5 days. 08/25/24 Unknown Tissue - Shoulder Gram Stain - Final 08/25/24 Unknown Tissue - Shoulder Wound Culture - Preliminary No growth-Final to follow 08/25/24 Unknown Tissue - Shoulder Anaerobic Culture - Preliminary No growth in 48 hours. 08/25/24 Unknown Tissue - Shoulder Gram Stain - Final 08/25/24 Unknown Tissue - Shoulder Wound Culture - Preliminary No growth-Final to follow 08/25/24 Unknown Tissue - Shoulder Anaerobic Culture - Preliminary Checking for anaerobes, further studies to follow. 08/25/24 Unknown Wound - Shoulder Gram Stain - Final 08/25/24 Unknown Wound - Shoulder Wound Culture - Preliminary No growth-Final to follow 08/25/24 Unknown Wound - Shoulder Anaerobic Culture - Preliminary Checking for anaerobes, further studies to follow. 08/25/24 Unknown Tissue - Shoulder Gram Stain - Final 08/25/24 Unknown Tissue - Shoulder Wound Culture - Preliminary No growth-Final to follow 08/25/24 Unknown Tissue - Shoulder Anaerobic Culture - Preliminary No growth in 48 hours. 08/25/24 Unknown Tissue - Shoulder Gram Stain - Final 08/25/24 Unknown Tissue - Shoulder Wound Culture - Preliminary No growth-Final to follow 08/25/24 Unknown Tissue - Shoulder Anaerobic Culture - Preliminary Checking for anaerobes, further studies to follow. 08/25/24 Unknown Wound - Aerobic Swab Gram Stain - Final 08/25/24 Unknown Wound - Aerobic Swab Wound Culture - Preliminary No growth-Final to follow 08/25/24 Unknown Wound - Aerobic Swab Anaerobic Culture - Preliminary Checking for anaerobes, further studies to follow. 08/24/24 19:26 Fluid - Bursa Gram Stain - Final 08/24/24 19:26 Fluid - Bursa Body Fluid Culture - Preliminary No growth-Final to follow 08/24/24 19:26 Fluid - Bursa Anaerobic Culture - Preliminary Checking for anaerobes, further studies to follow. Physical Exam Const alert and no apparent distress HEENT head/scalp atraumatic and moist oral mucous membranes Extremity Extremity Narrative: Right shoulder, bandage overlying but was from yesterday and no saturation was appreciated. Did not remove the bandage. Psych affect normal Assessment & Plan Assessment/Plan (1) Septic joint of left shoulder region: PLAN: Prosthetic joint infection. Antibiotics currently with vancomycin and ampicillin/sulbactam. Cultures pending. Aspirate and surgical cultures pending. Blood cultures pending. 08/25: patient underwent Left shoulder revision arthroplasty with explantation of reverse total shoulder arthroplasty and placement of articulating antibiotic spacer. Left shoulder irrigation and debridement with debridement of skin, subcutaneous tissue, fascia, muscle and bone. ID input appreciated. Patient with bleeding from his surgical incision requiring frequent changing of the dressing. Patient has enoxaparin ordered for VTE prophylaxis but has not yet received that. That will be discontinued anyways and put the patient on SCDs for VTE prophylaxis. PICC is already been placed. Anticipating 6 weeks of IV vancomycin, with stop date 10/06. Follow up with ID in 2-3 weeks. PLAN: Plan Chronic medical conditions: ? Class II obesity: BMI 39 on admit. Complicates hospital course, care and prognosis. ? History of CAD with stenting, hypertension, hyperlipidemia: Mildly hypertensive to the 140s systolic in the ED. Continue home amlodipine, doxazosin and fenofibrate. Hold home baby aspirin given plan for procedure as above, restart when able. ? Hypothyroidism: Continue home Synthroid. ? History of bladder cancer s/p resection, history of enlarged prostate s/p TURP DVT prophylaxis: SCDs DC home with home care. Discussed with the patient's son at bedside.
[2024-08-30 08:19] VITALS: BP 145/55; PULSE 67; RESP 16; TEMP 36.6; O2SAT 93
--- NOTE | 2024-08-30 09:18 | CASEMGMT ---
Addendum entered by Kairna Hussein 08/30/24 13:13: DC Summary and most recent pharmacy note sent to [facility] via [facility]. Addendum entered by Karina Hussein 08/30/24 11:33: RN CM into pt room, pt sitting up in chair. Pt received hemiwalker. Pt aware HHC will start in the morning and he will skip the evening dose of IV med. Pt states his will learn the IV. Pt denies any further homegoing needs at this time. Pt vanc is infusing now. Pt nurse aware pt may dc after dose complete. Updated hospitalist. Addendum entered by Karina Hussein 08/30/24 11:27: Received confirmation that I will deliver IV atb this evening. Per , ok to skip evening IV dose. Addendum entered by Karina Hussein 08/30/24 09:22: IV rx sent to [facility] via [facility]. Original Note: Referral sent to [facility] for [facility] at this time.
[2024-08-30] MEDS: Aspirin E.C. 81 MG Tablet PO (09:56)
[2024-08-30] MEDS: Vancomycin HCl 1,500 MG in 0.9% Normal Saline (500mL Bag) 500 ML 250 MG IV (09:56)
[2024-08-30 10:12] LABS: Source- Body Fluid OTHER
--- NOTE | 2024-08-30 12:00 | PCM.DC.SUM ---
Providers Date of Admission: 08/24/24 Primary Care Physician: Dr. Azul Rehman, DO Consultations 08/24/24 22:48 Consult: Infectious Disease Routine Consulting Provider: Ady Fajardo Reason for Consult: septic left shoulder EMERGENT Consult: No Notified: Yes Date Notified: 08/24/24 Time Notified: 21:23 Method of Notification: Text Consult: Orthopedics Routine Consulting Provider: Mario Cordero Reason for Consult: septic left shoulder EMERGENT Consult: No Notified: Yes Date Notified: 08/25/24 Time Notified: 06:38 Method of Notification: Text Reason For Visit: SEPTIC LEFT SHOULDER Diagnosis Discharge Diagnosis (1) Septic joint of left shoulder region: Status: Acute Code(s): M00.9 - Pyogenic arthritis, unspecified Plan: Prosthetic joint infection. Antibiotics currently with vancomycin and ampicillin/sulbactam. Cultures pending. Aspirate and surgical cultures pending. Blood cultures pending. 08/25: patient underwent Left shoulder revision arthroplasty with explantation of reverse total shoulder arthroplasty and placement of articulating antibiotic spacer. Left shoulder irrigation and debridement with debridement of skin, subcutaneous tissue, fascia, muscle and bone. ID input appreciated. Patient with bleeding from his surgical incision requiring frequent changing of the dressing. Patient has enoxaparin ordered for VTE prophylaxis but has not yet received that. That will be discontinued anyways and put the patient on SCDs for VTE prophylaxis. PICC is already been placed. Anticipating 6 weeks of IV vancomycin, with stop date 10/06. Follow up with ID in 2-3 weeks. Plan Chronic medical conditions: ? Class II obesity: BMI 39 on admit. Complicates hospital course, care and prognosis. ? History of CAD with stenting, hypertension, hyperlipidemia: Mildly hypertensive to the 140s systolic in the ED. Continue home amlodipine, doxazosin and fenofibrate. Hold home baby aspirin given plan for procedure as above, restart when able. ? Hypothyroidism: Continue home Synthroid. ? History of bladder cancer s/p resection, history of enlarged prostate s/p TURP DVT prophylaxis: SCDs DC home with home care. Discussed with the patient's son at bedside. Medications at Discharge Home Medications amlodipine 5 mg tablet 5 mg PO DAILY BP 10/27/22 aspirin 81 mg capsule 81 mg PO DAILY HEART HEALTH 10/27/22 celecoxib 100 mg capsule 100 mg PO BID ARTHRITIS 10/27/22 doxazosin 4 mg tablet 4 mg PO DAILY BP 10/27/22 fenofibrate nanocrystallized 145 mg tablet 145 mg PO QHS CHOLESTEROL 10/27/22 loratadine 10 mg tablet (Claritin) 10 mg PO QHS ALLERGY 10/27/22 levothyroxine 100 mcg tablet 100 mcg PO SUTUTHFRSA THYROID 05/14/23 levothyroxine 100 mcg capsule 200 mcg PO MOWEFR THYROID 08/24/24 vancomycin 1.5 gram intravenous solution 1.5 g IV Q12H 38 days 08/29/24 Hospital Course Operations - (1. Left shoulder revision arthroplasty with explantation of reverse total shoulder arthroplasty and placement of articulating antibiotic spacer 2. Left shoulder irrigation and debridement with debridement of skin, subcutaneous tissue, fascia, muscle and bone) Procedures None Summary of Care Provided Minutes Spent on Discharge: 32 Weight / BMI Weight Weight: 100 kg Body Mass Index (BMI) 39.0 ABG / Lab / Microbiology Data 08/28/24 05:58 08/28/24 05:58 Laboratory: Laboratory Results - last 24 hr 08/24/24 19:26: Fluid Source OTHER 08/29/24 21:29: Vancomycin Trough 16.8 H Microbiology: Microbiology 08/25/24 Unknown Tissue - Shoulder Gram Stain - Final 08/25/24 Unknown Tissue - Shoulder Wound Culture - Preliminary No growth-Final to follow 08/25/24 Unknown Tissue - Shoulder Anaerobic Culture - Preliminary No growth in 48 hours. 08/25/24 Unknown Tissue - Shoulder Gram Stain - Final 08/25/24 Unknown Tissue - Shoulder Wound Culture - Preliminary No growth-Final to follow 08/25/24 Unknown Tissue - Shoulder Anaerobic Culture - Preliminary Checking for anaerobes, further studies to follow. 08/25/24 Unknown Wound - Aerobic Swab Gram Stain - Final 08/25/24 Unknown Wound - Aerobic Swab Wound Culture - Preliminary No growth-Final to follow 08/25/24 Unknown Wound - Aerobic Swab Anaerobic Culture - Preliminary Checking for anaerobes, further studies to follow. 08/25/24 Unknown Tissue - Shoulder Gram Stain - Final 08/25/24 Unknown Tissue - Shoulder Wound Culture - Preliminary No growth-Final to follow 08/25/24 Unknown Tissue - Shoulder Anaerobic Culture - Preliminary No growth in 48 hours. 08/25/24 Unknown Tissue - Shoulder Gram Stain - Final 08/25/24 Unknown Tissue - Shoulder Wound Culture - Preliminary No growth-Final to follow 08/25/24 Unknown Tissue - Shoulder Anaerobic Culture - Preliminary Checking for anaerobes, further studies to follow. 08/24/24 19:26 Fluid - Bursa Gram Stain - Final 08/24/24 19:26 Fluid - Bursa Body Fluid Culture - Preliminary No growth-Final to follow 08/24/24 19:26 Fluid - Bursa Anaerobic Culture - Preliminary Checking for anaerobes, further studies to follow. 08/24/24 19:37 Blood Culture (Wb) - Left Hand Blood Culture - Final No growth in 5 days. 08/24/24 19:19 Blood Culture (Wb) - Anticubital Left Blood Culture - Final No growth in 5 days. 08/25/24 Unknown Wound - Shoulder Gram Stain - Final 08/25/24 Unknown Wound - Shoulder Wound Culture - Preliminary No growth-Final to follow 08/25/24 Unknown Wound - Shoulder Anaerobic Culture - Preliminary Checking for anaerobes, further studies to follow. D/C Instructions Discharge Activity: Use Walker Weight Bearing Status: No weight bearing Keep extremity elevated above heart level: Left Arm Call your doctor if your incision/area has: Continuous Slow Oozing, Sudden Increased Bleeding, Increased Pain/ Swelling, Increased Redness, Foul Smelling Discharge and Swelling at the incision site DC O2, CPAP, BIPAP Needs Home O2 Discharge instructions: No Meaningful Use Info Meaningful Use Meaningful Use Diagnoses (Choose all that apply): None applicable Discharge Plan Admission Admit Date/Time: 08/24/24 21:21 Primary Reason for Your Visit: Left shoulder septic joint Attending Provider: Cas Gleason Primary Care Provider: Azul Rehman Consulting Providers: Mario Cordero; Shoaib Meyers; Ady Fajardo Discharge Orders/Prescriptions Prescriptions: New vancomycin 1.5 gram recon soln 1.5 g IV Q12H 38 Days Rx Instructions: Stop date 10/06/24. Dx: shoulder PJI. Weekly bmp, cbc, esr, and vanc trough. Fax to [phone]. Routine picc care per protocol. Continued amlodipine 5 mg tablet 5 mg PO DAILY Patient Comments: TAKE 1 TABLET BY MOUTH EVERY DAY doxazosin 4 mg tablet 4 mg PO DAILY loratadine [Claritin] 10 mg tablet 10 mg PO QHS fenofibrate nanocrystallized 145 mg tablet 145 mg PO QHS Patient Comments: TAKE 1 TABLET BY MOUTH AT BEDTIME aspirin 81 mg capsule 81 mg PO DAILY Patient Comments: DR. CORDERO ASK RE:STOPPING celecoxib 100 mg capsule 100 mg PO BID levothyroxine 100 mcg tablet 100 mcg PO SUTUTHFRSA Rx Instructions: 100 MCG THURSDAY, THURSDAY, THURSDAY AND THURSDAY 200 MCG THURSDAY, THURSDAY AND THURSDAY levothyroxine 100 mcg capsule 200 mcg PO Referrals / Follow Up: Azul Rehman DO [Primary Care Provider] - Within 2 Weeks Mario Cordero DO [Med Staff - Active Staff] - Within 2 Weeks Ady Fajardo MD [Med Staff - Active Staff] - Within 2 Weeks Disposition Disposition (needs filled in before D/C Order can be placed): Home Health Service Charges/Coding Visit Charges Inpatient E&M: 20845 Disch Hosp >30min
--- NOTE | 2024-08-30 16:19 | PCM.PN.ORT ---
Subjective Subjective Patient is s/p explantation left reverse total shoulder arthroplasty with implantation of antibiotic spacer with Dr. Aquino 08/25/2024. Patient presented to the office after 1 month of redness and swelling at the incision. He was found to have significant erythema edema and a collection of purulent material at the proximal portion of the incision.. Dr. Aquino decided to take patient to the operative room yesterday prior to elective procedure patient developed fevers and further malaise and was admitted 08/24/2024. Patient resting comfortably in bed. Rates pain 3/ 10 at rest. With movement 5 /10. States taking tylenol, and oxycodone and ice help to relieve pain. Patient has been up with therapy. Sling at all times nonweightbearing to left upper extremity. Okay for elbow range of motion and pendulums. Afebrile, no chest pain, shortness of breath, negative calf pain/ erythema, and no other signs of DVT. [place] did have a few dressing changes, but has not saturated through since. yesterday. PICC was placed yesterday Objective Data Objective Data Vital Signs: Vital Signs Temp Pulse Resp BP Pulse Ox O2 Del Method O2 Flow Rate 97.9 F 67 16 145/55 H 93 Room Air 2 08/30/24 08:19 08/30/24 08:19 08/30/24 08:19 08/30/24 08:19 08/30/24 08:19 08/30/24 08:19 08/27/24 07:53 Oxygen Flow Rate (L/min) 2 Oxygen Delivery Method Room Air Weight: 100 kg Body Mass Index (BMI) 39.0 Intake & Output: Intake and Output for Last 24 Hours 08/28/24 08/29/24 08/30/24 23:59 23:59 23:59 Intake Total 2610 / 2610 1760 / 1760 730 / 730 Balance 2610 / 2610 1760 / 1760 730 / 730 Lab / Micro Data 08/28/24 05:58 08/28/24 05:58 Labs: Laboratory Results - last 24 hr 08/24/24 19:26: Fluid Source OTHER 08/29/24 21:29: Vancomycin Trough 16.8 H Micro: Microbiology 08/24/24 19:26 Fluid - Bursa Gram Stain - Final 08/24/24 19:26 Fluid - Bursa Body Fluid Culture - Preliminary No growth-Final to follow 08/24/24 19:26 Fluid - Bursa Anaerobic Culture - Preliminary Gram positive shellie Gram positive shellie#2 08/25/24 Unknown Wound - Shoulder Gram Stain - Final 08/25/24 Unknown Wound - Shoulder Wound Culture - Preliminary Gram negative organism 08/25/24 Unknown Wound - Shoulder Anaerobic Culture - Preliminary Checking for anaerobes, further studies to follow. 08/25/24 Unknown Tissue - Shoulder Gram Stain - Final 08/25/24 Unknown Tissue - Shoulder Wound Culture - Preliminary No growth-Final to follow 08/25/24 Unknown Tissue - Shoulder Anaerobic Culture - Preliminary No growth in 48 hours. 08/25/24 Unknown Tissue - Shoulder Gram Stain - Final 08/25/24 Unknown Tissue - Shoulder Wound Culture - Preliminary No growth-Final to follow 08/25/24 Unknown Tissue - Shoulder Anaerobic Culture - Preliminary Checking for anaerobes, further studies to follow. 08/25/24 Unknown Wound - Aerobic Swab Gram Stain - Final 08/25/24 Unknown Wound - Aerobic Swab Wound Culture - Preliminary No growth-Final to follow 08/25/24 Unknown Wound - Aerobic Swab Anaerobic Culture - Preliminary Checking for anaerobes, further studies to follow. 08/25/24 Unknown Tissue - Shoulder Gram Stain - Final 08/25/24 Unknown Tissue - Shoulder Wound Culture - Preliminary No growth-Final to follow 08/25/24 Unknown Tissue - Shoulder Anaerobic Culture - Preliminary No growth in 48 hours. 08/25/24 Unknown Tissue - Shoulder Gram Stain - Final 08/25/24 Unknown Tissue - Shoulder Wound Culture - Preliminary No growth-Final to follow 08/25/24 Unknown Tissue - Shoulder Anaerobic Culture - Preliminary Checking for anaerobes, further studies to follow. 08/24/24 19:37 Blood Culture (Wb) - Left Hand Blood Culture - Final No growth in 5 days. 08/24/24 19:19 Blood Culture (Wb) - Anticubital Left Blood Culture - Final No growth in 5 days. Physical Exam Narrative Patient resting comfortably in bedside chair Sling in place No signs of acute distress Satting well on room air Limb is warm to touch, Sensation intact throughout entire upper extremity, Motor intact to radial, median, ulnar nerve distribution Radial pulses bounding Dressing clear dry intact. this is a new dressing which was changed yesterday. Calf nontender to palpation, no erythema, no edema. 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 1. Will continue PT today. Nonweightbearing to left upper extremity. Sling at all times. Okay for elbow range of motion and pendulums. 2. Ultimate plan for discharge will pending hospitalist recommendations and infectious disease recommendations. Infectious disease recommendations: picc and planned 6 weeks iv abx of vancomycin 3. cultures : Single tissue sample demonstrating gram-positive cocci in clusters on the Gram stain. Plan to hold cultures for 2 weeks due to concern for possible C acnes infection. Stable for discharge from ortho standpoint once antibiotic recommendations are made by infectious disease. 4. Patient will follow up for post op appointment with orthopedics 2 weeks after surgery in our office this will need to be arranged. Ultimate determination of plan for possible second stage revision arthroplasty versus permanent antibiotic spacer based on patient discomfort, function and ability to clear infection. 5. Patient has outpatient PT may be scheduled for 2 weeks after surgery. 6. DVT prophylaxis : upon discharge , change to aspirin 81mg BID x 2 weeks. 7. Pain control: patient instructed to take tylenol 500mg 2 tablets TID. and oxycodone 1-2 tablets every 4-6 hours only as needed for pain control. 8. ok to remove post op dressing. post op day 5
== END 2024-08-30 15:49 | disposition home health service (06) | DRG 483 ==
LOC: ED 21:14 → MS3 21:37
PROVIDERS: Anesthesiology; Student in an Organized Health Care Education/Training Program; Admitting Provider Hospitalist; Emergency Provider Emergency Medicine; PCP Family Medicine; Referring Provider Emergency Medicine
PROC: 0RRK00Z Replacement of Left Shoulder Joint with Reverse Ball and Socket Synthetic Substitute, Open Approach (ICD-10-PCS; CPT 23472; principal; 2024-08-25 13:00)
DX: T84.59XA Infection and inflammatory reaction due to other internal joint prosthesis, initial encounter (principal); D62 Acute posthemorrhagic anemia; M00.9 Pyogenic arthritis, unspecified; L02.414 Cutaneous abscess of left upper limb; L03.114 Cellulitis of left upper limb; I10 Essential (primary) hypertension; E03.9 Hypothyroidism, unspecified; J45.909 Unspecified asthma, uncomplicated; Z68.39 Body mass index [BMI] 39.0-39.9, adult; I25.10 Atherosclerotic heart disease of native coronary artery without angina pectoris; E78.5 Hyperlipidemia, unspecified; T84.84XA Pain due to internal orthopedic prosthetic devices, implants and grafts, initial encounter; M12.512 Traumatic arthropathy, left shoulder; Y83.1 Surgical operation with implant of artificial internal device as the cause of abnormal reaction of the patient, or of later complication, without mention of misadventure at the time of the procedure; E66.812 Obesity, class 2; B96.89 Other specified bacterial agents as the cause of diseases classified elsewhere; R31.0 Gross hematuria; Z79.82 Long term (current) use of aspirin; Z95.5 Presence of coronary angioplasty implant and graft; Z85.51 Personal history of malignant neoplasm of bladder; Z79.890 Hormone replacement therapy; Z79.899 Other long term (current) drug therapy; Z98.890 Other specified postprocedural states; Z87.891 Personal history of nicotine dependence; Z96.612 Presence of left artificial shoulder joint
CPT/HCPCS: 36415; 36569; 71045; 73030; 74178; 80048; 80053; 80202; 81001; 82962; 83605; 83735; 84443; 85025; 85027; 85610; 85652; 85730; 86140; 87015; 87040; 87070; 87075; 87077; 87102; 87116; 87176; 87205; 87206; 89050; 89051; 93005; 94668; 97110; 97116; 97162; 97166; 97530; 97535; 99285; Q9967; A4216; J0295; J2405; J3260; J3475

== ENCOUNTER → 2024-08-24 | Outpatient (CLI) | payer MEDICARE, SELFPAY ==
--- NOTE | 2024-08-24 16:09 | CT_ITS ---
PROCEDURE: CT ABD/PELVIS W/WO CONTRAST 08/24/2024 REASON FOR EXAM: GROSS HEMATURIA TECHNIQUE: CT ABD/PELVIS W/WO CONTRAST Coronal and Sagittal reconstruction series were provided. CONTRAST: Isovue-300 VOLUME: 93 mL One or more dose reduction techniques were used (e.g., Automated exposure control, adjustment of the mA and/or kV according to patient size, use of iterative reconstruction technique. RADIATION DOSE SUMMARY: CTDlvol: 99.5 mGy DLP: 3544.54 mGycm COMPARISON: None. FINDINGS: Lung bases: The lung bases are clear. There are no pleural effusions. The heart is enlarged. There is no pericardial effusion. There is calcific vascular disease of the thoracic aorta and coronary arteries. Liver: Normal. Gallbladder: Partially evacuated. Spleen: Normal. Pancreas: Normal. Adrenals: Normal. Kidneys: Normal. Bladder: The bladder wall is thickened consistent with bladder outlet obstruction and/or cystitis. Reproductive Organs: The prostate gland measures 5.9 cm in transverse dimension. Seminal vesicles are normal. There is no free fluid in the pelvis. There is no inguinal lymphadenopathy. There are small bilateral hydroceles. Bowel: The gastrointestinal tract is unremarkable. Appendix: Not identified. Lymph nodes: There is no retroperitoneal or pelvic lymphadenopathy. Vasculature: There is calcific vascular disease of the abdominal aorta. The inferior vena cava and portal venous system are normal. Peritoneum / Retroperitoneum: There is increased attenuation of the central mesenteric fat with associated lymphadenopathy consistent with sclerosing mesenteritis. There is an umbilical hernia containing normal fat measuring 2.8 cm in diameter. Bones: There is severe diffuse degenerative disc disease of the lower thoracic and lumbar spine. Status post PLIF, L3 through L5. There is mild levoscoliosis of the lumbar spine. CT/CT Abd/Pelvis W/WO Contrast IMPRESSION: 1. There is no nephrolithiasis, ureterolithiasis or hydronephrosis. 2. Prostatomegaly. 3. The bladder is thick walled consistent with bladder outlet obstruction and/ or cystitis. 4. Findings consistent with sclerosing mesenteritis. 5. Other findings as noted. Reading Location: [id number]
== END | disposition home or self-care (01) ==
LOC: CT 16:07
PROVIDERS: PCP Family Medicine; Referring Provider Urology; Visit Provider Urology
DX: R31.0 Gross hematuria (principal)
CPT/HCPCS: 74178; Q9967

== ENCOUNTER 2024-08-25 13:15 | Outpatient (CLI) | payer MEDICARE, SELFPAY ==
--- NOTE | 2024-08-24 15:49 | PAT.ANE_ITS ---
Pre-Assessment Diagnosis/Proposed Procedure Planned Operative Procedure(s): LEFT REVERSE TOTAL SHOULDER ARTHROPLASTY EXPLANTATION I&D AND PLACEMENT OF ANTIBIOTIC SPACER Anesthesia History Anesthesia History - polisher numeral: Anesthesia History - polisher numeral Hx Hospitalization No 08/24/24 11:54 Any Problems With Anesthesia Yes: HARD TIME WAKING 08/24/24 11:54 Cholinesterase deficiency No 08/24/24 11:54 You/Your Family Experience No 08/24/24 11:54 fever (hyperthermia) with Relationship Recent Exposure to Contagious No 03/14/24 08:57 Disease Does patient have nerve No 08/24/24 11:54 stimulator Patient instructed to have device shut off --Does patient have Pacemaker or ICD? When Was Last Pacemaker Check QUESTION #4 FULL TEXT: You/Your Family Experience fever (hyperthermia) with Anesthesia Last Oral Intake Last Oral intake: Last Oral Intake NPO since Meds taken in AM with sips of water? Meds patient instructed to take am of surgery PONV PONV - polisher numeral: PONV - polisher numeral Female No 08/24/24 11:54 HX of Motion Sickness No 08/24/24 11:54 HX of N/V After Surgery No 08/24/24 11:54 Non-Smoker Yes 08/24/24 11:54 Duration of Surgery greater Yes 08/24/24 11:54 than 60 minutes Number of Risk Factors 2 08/24/24 11:54 PONV Score Moderate Risk 08/24/24 11:54 Height & Weight Height & Weight: Anesthesia: Height & Weight Height 5 ft 3 in 08/24/24 11:41 Weight: 103.419 kg 08/24/24 11:41 Respiratory Assessment Respiratory Assessment - polisher numeral: Respiratory Tract Infection Hx - polisher numeral Hx Respiratory Tract Infection No 08/24/24 11:54 STOP Sleep Apnea STOP Sleep Apnea - polisher numeral: STOP Sleep Apnea - polisher numeral Hx Hypertension Yes: CONTROLLED WITH MEDS 08/24/24 11:54 Hx Sleep Apnea Yes 08/24/24 11:54 CPAP Yes 08/24/24 11:54 BIPAP No 08/24/24 11:54 Do you snore loudly (louder than talking or can be heard Do you often feel tired/ fatigued/ sleepy during daytime? Has anyone observed you stop breathing during sleep? STOP Results Positive 08/24/24 11:54 QUESTION #5 FULL TEXT : Do you snore loudly (louder than talking or can be heard through closed doors)? 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 Specify any problems Hx of Preganancy in last 3 N/A 08/24/24 11:54 Months Nurse Filling Out Transfusion DSCHRIBER 08/24/24 11:54 & Questions: Date: 08/24/24 08/24/24 11:54 Time: 11:56 08/24/24 11:54 Patient unable to answer at this time (ie. confused, unrespo /Reproduction History /Reproductive History - polisher numeral: /Reproductive Hx- polisher numeral Hx Now Gestational Age (in weeks): EDC: Hx Hx Para Hx Section SAB No 08/24/24 11:54 Active Medications Active Medications: Current Medications Generic Name Dose Route Start Last Admin Trade Name Darrick PRN Reason Stop Dose Admin Acetaminophen 1,000 mg 08/25/24 14:20 Acetaminophen 500 Mg Tablet PO 08/25/24 14:21 PREOP ONE Gabapentin 600 mg 08/25/24 14:20 Gabapentin 600 Mg Tablet PO 08/25/24 14:21 PREOP ONE Cefazolin Sodium 2 gm/ Sodium 110 mls @ 150 mls/hr 08/25/24 14:20 Chloride IV 08/25/24 15:03 INTRAOP ONE Tranexamic Acid 1,000 mg/ 110 mls @ 660 mls/hr 08/25/24 14:20 Sodium Chloride IV 08/25/24 14:29 INTRAOP ONE Magnesium Sulfate 1 gm/ 102 mls @ 408 mls/hr 08/25/24 14:20 Dextrose IV 08/25/24 14:34 INTRAOP ONE Insulin Human Lispro 1 - 6 unit 08/25/24 14:20 Insulin Lispro 100 Unit/Ml Insuln.Pen SC 08/25/24 20:00 Q4H PRN PRN BG>/= 180, SEE PROTOCOL Protocol PFSH Medical History (Updated 08/24/24 @ 12:00 by Johanna Casper) Rotator cuff tear arthropathy of left shoulder CPAP (continuous positive airway pressure) dependence Prostate disease Loss of hearing Wears dentures Cancer Alcohol use Thyroid disease Walker as ambulation aid Arthritis Bladder disease Back pain Vertigo History of ulceration Gastric reflux Former smoker Asthma Shortness of breath on exertion History of edema History of stress test History of echocardiogram Cardiology follow-up encounter Hypertension Pain Home Medications ?Medication ?Instructions ?Recorded ?Last Taken ?Type amlodipine 5 mg tablet 5 mg PO DAILY BP 10/27/22 History aspirin 81 mg capsule 81 mg PO DAILY HEART HEALTH 10/27/22 08/23/24 History celecoxib 100 mg capsule 100 mg PO BID ARTHRITIS 10/1705/19/23 History doxazosin 4 mg tablet 4 mg PO DAILY BP 10/27/22 History fenofibrate nanocrystallized 145 145 mg PO QHS CHOLEST JALYN 10/27/22 03/13/24 History mg tablet loratadine 10 mg tablet (Claritin) 10 mg PO QHS ALLERG Y 10/27/22 03/13/24 History levothyroxine 100 mcg tablet 100 mcg PO SUTUTHFRSA THY ROID 05/14/23 03/14/24 History levothyroxine 100 mcg capsule 200 mcg PO MOWEFR THYROI D 08/24/24 Unknown History Allergy/AdvReac Type Severity Reaction Status Date / Time clopidogrel (From Plavix) Allergy Intermediate Rash Verified 08/24/24 11:47 hydrocodone (From [place]) Allergy Intermediate Rash Verified 08/24/24 11:47 oxycodone Allergy Intermediate Rash Verified 08/24/24 11:47 Surgical History (Updated 08/24/24 @ 12:00 by Johanna Casper) Hx of total shoulder replacement Hx of transurethral resection of prostate History of cardiac catheterization History of coronary artery stent placement Hx of right cataract extraction Hx of left cataract extraction Hx of detached retina repair History of carpal tunnel surgery of right wrist History of carpal tunnel surgery of left wrist Hx of elbow surgery Hx of rotator cuff surgery Hx of foot surgery History of fusion of cervical spine History of lumbar fusion History of lumbar discectomy Hx of total knee arthroplasty Hx of transurethral destruction of bladder lesion Social History Smoking Status: Former smoker Audit: Pertinent Findings Pertinent Findings EKG Perinent findings: 02/25/2024. Normal sinus rhythm. 14 May 2023. Normal sinus rhythm Echo (EF%) pertinent findings: EF 55 to 60%. Aortic valve very mild stenosis Additional pertinent findings: Cardiology note 03/02/2024. CAD stable. 2005 2 ED stents placed to the mid and early distal LAD. Recent heart cath showed p atent stents. Learning And Development Intern recommends return to office for regular follow-up 08/30/2024 Recommendation Anesthesia Recommendation Anesthesia recommendation: OPTIMIZED for anesthesia
--- NOTE | 2024-08-24 15:49 | PAT.ANE_ITS ---
Pre-Assessment Diagnosis/Proposed Procedure Planned Operative Procedure(s): LEFT REVERSE TOTAL SHOULDER ARTHROPLASTY EXPLANTATION I&D AND PLACEMENT OF ANTIBIOTIC SPACER Anesthesia History Anesthesia History - operations specialist: Anesthesia History - operations specialist Hx Hospitalization No 08/24/24 11:54 Any Problems With Anesthesia Yes: HARD TIME WAKING 08/24/24 11:54 Cholinesterase deficiency No 08/24/24 11:54 You/Your Family Experience No 08/24/24 11:54 fever (hyperthermia) with Relationship Recent Exposure to Contagious No 03/14/24 08:57 Disease Does patient have nerve No 08/24/24 11:54 stimulator Patient instructed to have device shut off --Does patient have Pacemaker or ICD? When Was Last Pacemaker Check QUESTION #4 FULL TEXT: You/Your Family Experience fever (hyperthermia) with Anesthesia Last Oral Intake Last Oral intake: Last Oral Intake NPO since Meds taken in AM with sips of water? Meds patient instructed to take am of surgery PONV PONV - operations specialist: PONV - operations specialist Female No 08/24/24 11:54 HX of Motion Sickness No 08/24/24 11:54 HX of N/V After Surgery No 08/24/24 11:54 Non-Smoker Yes 08/24/24 11:54 Duration of Surgery greater Yes 08/24/24 11:54 than 60 minutes Number of Risk Factors 2 08/24/24 11:54 PONV Score Moderate Risk 08/24/24 11:54 Height & Weight Height & Weight: Anesthesia: Height & Weight Height 5 ft 3 in 08/24/24 11:41 Weight: 103.419 kg 08/24/24 11:41 Respiratory Assessment Respiratory Assessment - operations specialist: Respiratory Tract Infection Hx - operations specialist Hx Respiratory Tract Infection No 08/24/24 11:54 STOP Sleep Apnea STOP Sleep Apnea - operations specialist: STOP Sleep Apnea - operations specialist Hx Hypertension Yes: CONTROLLED WITH MEDS 08/24/24 11:54 Hx Sleep Apnea Yes 08/24/24 11:54 CPAP Yes 08/24/24 11:54 BIPAP No 08/24/24 11:54 Do you snore loudly (louder than talking or can be heard Do you often feel tired/ fatigued/ sleepy during daytime? Has anyone observed you stop breathing during sleep? STOP Results Positive 08/24/24 11:54 QUESTION #5 FULL TEXT : Do you snore loudly (louder than talking or can be heard through closed doors)? Tobacco Use History Tobacco Use History - operations specialist: Tobacco Use History - operations specialist Tobacco Use Smoking Status Former smoker 08/24/24 11:54 Hx Tobacco Use No 08/24/24 11:54 Years Smoking Packs Smoked per Day Smoking Cessation Date was No - quit smoking greater 08/24/24 11:54 within the last 15 years than 15 years ago Hx Smoking Cessation Date 02/16/1967 08/24/24 11:54 Hx Smoking Cessation No 08/24/24 11:54 Counseling Hematologic Medial History Hematologic Hx - operations specialist: Hematologic Medical Hx - apprentice/lineman Hx of Blood Transfusion No 08/24/24 11:54 Hx of Transfusion in last 3 No 08/24/24 11:54 Months Date of Last Transfusion (if within last 3 months) Ever experience any problems No 08/24/24 11:54 with transfusion(s)? Specify any problems Hx of Preganancy in last 3 N/A 08/24/24 11:54 Months Nurse Filling Out Transfusion DSCHRIBER 08/24/24 11:54 & Questions: Date: 08/24/24 08/24/24 11:54 Time: 11:56 08/24/24 11:54 Patient unable to answer at this time (ie. confused, unrespo /Reproduction History /Reproductive History - operations specialist: /Reproductive Hx- operations specialist Hx Now Gestational Age (in weeks): EDC: Hx Hx Para Hx Section SAB No 08/24/24 11:54 Active Medications Active Medications: Current Medications Generic Name Dose Route Start Last Admin Trade Name Darrick PRN Reason Stop Dose Admin Acetaminophen 1,000 mg 08/25/24 14:20 Acetaminophen 500 Mg Tablet PO 08/25/24 14:21 PREOP ONE Gabapentin 600 mg 08/25/24 14:20 Gabapentin 600 Mg Tablet PO 08/25/24 14:21 PREOP ONE Cefazolin Sodium 2 gm/ Sodium 110 mls @ 150 mls/hr 08/25/24 14:20 Chloride IV 08/25/24 15:03 INTRAOP ONE Tranexamic Acid 1,000 mg/ 110 mls @ 660 mls/hr 08/25/24 14:20 Sodium Chloride IV 08/25/24 14:29 INTRAOP ONE Magnesium Sulfate 1 gm/ 102 mls @ 408 mls/hr 08/25/24 14:20 Dextrose IV 08/25/24 14:34 INTRAOP ONE Insulin Human Lispro 1 - 6 unit 08/25/24 14:20 Insulin Lispro 100 Unit/Ml Insuln.Pen SC 08/25/24 20:00 Q4H PRN PRN BG>/= 180, SEE PROTOCOL Protocol PFSH Medical History (Updated 08/24/24 @ 12:00 by Johanna Casper) Rotator cuff tear arthropathy of left shoulder CPAP (continuous positive airway pressure) dependence Prostate disease Loss of hearing Wears dentures Cancer Alcohol use Thyroid disease Walker as ambulation aid Arthritis Bladder disease Back pain Vertigo History of ulceration Gastric reflux Former smoker Asthma Shortness of breath on exertion History of edema History of stress test History of echocardiogram Cardiology follow-up encounter Hypertension Pain Home Medications ?Medication ?Instructions ?Recorded ?Last Taken ?Type amlodipine 5 mg tablet 5 mg PO DAILY BP 10/27/22 History aspirin 81 mg capsule 81 mg PO DAILY HEART HEALTH 10/27/22 08/23/24 History celecoxib 100 mg capsule 100 mg PO BID ARTHRITIS 10/1705/19/23 History doxazosin 4 mg tablet 4 mg PO DAILY BP 10/27/22 History fenofibrate nanocrystallized 145 145 mg PO QHS CHOLEST JALYN 10/27/22 03/13/24 History mg tablet loratadine 10 mg tablet (Claritin) 10 mg PO QHS ALLERG Y 10/27/22 03/13/24 History levothyroxine 100 mcg tablet 100 mcg PO SUTUTHFRSA THY ROID 05/14/23 03/14/24 History levothyroxine 100 mcg capsule 200 mcg PO MOWEFR THYROI D 08/24/24 Unknown History Allergy/AdvReac Type Severity Reaction Status Date / Time clopidogrel (From Plavix) Allergy Intermediate Rash Verified 08/24/24 11:47 hydrocodone (From [place]) Allergy Intermediate Rash Verified 08/24/24 11:47 oxycodone Allergy Intermediate Rash Verified 08/24/24 11:47 Surgical History (Updated 08/24/24 @ 12:00 by Johanna Casper) Hx of total shoulder replacement Hx of transurethral resection of prostate History of cardiac catheterization History of coronary artery stent placement Hx of right cataract extraction Hx of left cataract extraction Hx of detached retina repair History of carpal tunnel surgery of right wrist History of carpal tunnel surgery of left wrist Hx of elbow surgery Hx of rotator cuff surgery Hx of foot surgery History of fusion of cervical spine History of lumbar fusion History of lumbar discectomy Hx of total knee arthroplasty Hx of transurethral destruction of bladder lesion Social History Smoking Status: Former smoker Audit: Pertinent Findings Pertinent Findings EKG Perinent findings: 02/25/2024. Normal sinus rhythm. 14 May 2023. Normal sinus rhythm Echo (EF%) pertinent findings: EF 55 to 60%. Aortic valve very mild stenosis Additional pertinent findings: Cardiology note 03/02/2024. CAD stable. 2005 2 ED stents placed to the mid and early distal LAD. Recent heart cath showed p atent stents. Worm Picker recommends return to office for regular follow-up 08/30/2024 Recommendation Anesthesia Recommendation Anesthesia recommendation: OPTIMIZED for anesthesia
== END 2024-08-25 19:00 | disposition home or self-care (01) ==
LOC: SDC 12-15 08:09
PROVIDERS: PCP Family Medicine; Visit Provider Student in an Organized Health Care Education/Training Program
DX: T84.59XA Infection and inflammatory reaction due to other internal joint prosthesis, initial encounter (principal); T84.84XA Pain due to internal orthopedic prosthetic devices, implants and grafts, initial encounter; M12.512 Traumatic arthropathy, left shoulder; I10 Essential (primary) hypertension; K21.9 Gastro-esophageal reflux disease without esophagitis; E07.9 Disorder of thyroid, unspecified; E78.00 Pure hypercholesterolemia, unspecified; J45.909 Unspecified asthma, uncomplicated; Z79.82 Long term (current) use of aspirin; Z79.899 Other long term (current) drug therapy; Z79.890 Hormone replacement therapy; Z87.891 Personal history of nicotine dependence; Z96.612 Presence of left artificial shoulder joint
CPT/HCPCS: J2405; J3475

== ENCOUNTER → 2024-09-05 | Outpatient (CLI) | payer MEDICARE, SELFPAY ==
[2024-09-05 10:50] LABS: Hematocrit 32.3 % (40-54); Hemoglobin 10.3 g/dL (13.0-16.5); Mean Corp Hgb Conc 31.9 g/dL (32-36); Mean Corpuscular Volume 92.6 fL (80-94); Mean Platelet Vol. 9.6 fl (6.2-12.0); Platelet Count 364 K/mm3 (150-450); RBC Distribution Width CV 15.6 % (11.6-14.6); RBC Distribution Width SD 52.1 fl (35.1-43.9); Red Blood Count 3.49 M/mm3 (4.6-6.2); White Blood Count 5.5 K/mm3 (4.4-11.0)
[2024-09-05 11:28] LABS: Vancomycin, Trough Level 17.3 ug/mL (5.0-15.0)
[2024-09-05 11:56] LABS: Anion Gap 13 (5-15); BUN 13 mg/dL (4-19); BUN/Creat Ratio 17.2 RATIO (10-20); Calcium,Total 9.1 mg/dL (7.6-11.0); Carbon Dioxide 24.0 mmol/L (21.0-32.0); Chloride 103 mmol/L (98-108); Glucose 143 mg/dL (70-99); Potassium 3.5 mmol/L (3.3-5.1)
== END | disposition home or self-care (01) ==
LOC: LABSPEC 09:18
PROVIDERS: PCP Family Medicine; Visit Provider Internal Medicine Infectious Disease
DX: M00.9 Pyogenic arthritis, unspecified (principal)
CPT/HCPCS: 80048; 80202; 85027; 85652

== ENCOUNTER → 2024-09-12 | Outpatient (CLI) | payer MEDICARE, SELFPAY ==
[2024-09-12 12:50] LABS: Hematocrit 31.9 % (40-54); Hemoglobin 10.2 g/dL (13.0-16.5); Immature Granulocytes Count 0.020 X10^3/uL (0.0-0.0); Mean Corp Hgb Conc 32.0 g/dL (32-36); Mean Corpuscular Volume 93.3 fL (80-94); Mean Platelet Vol. 10.4 fl (6.2-12.0); NRBC Flagged by Analyzer 0 % (0-5); Platelet Count 274 K/mm3 (150-450); RBC Distribution Width CV 15.8 % (11.6-14.6); RBC Distribution Width SD 54.3 fl (35.1-43.9); Red Blood Count 3.42 M/mm3 (4.6-6.2); White Blood Count 4.3 K/mm3 (4.4-11.0)
[2024-09-12 13:32] LABS: Anion Gap 13 (5-15); BUN 12 mg/dL (4-19); BUN/Creat Ratio 14.3 RATIO (10-20); Calcium,Total 9.2 mg/dL (7.6-11.0); Carbon Dioxide 23.5 mmol/L (21.0-32.0); Chloride 103 mmol/L (98-108); Glucose 148 mg/dL (70-99); Potassium 3.6 mmol/L (3.3-5.1)
[2024-09-12 13:34] LABS: Vancomycin, Trough Level 19.3 ug/mL (5.0-15.0)
== END | disposition home or self-care (01) ==
LOC: LABSPEC 10:09
PROVIDERS: PCP Family Medicine; Visit Provider Internal Medicine Infectious Disease
DX: M00.9 Pyogenic arthritis, unspecified (principal)
CPT/HCPCS: 80048; 80202; 85025; 85652

== ENCOUNTER → 2024-10-24 | Outpatient (CLI) | payer MEDICARE, SELFPAY ==
[2024-10-24 10:37] LABS: Hematocrit 38.6 % (40-54); Hemoglobin 12.5 g/dL (13.0-16.5); Mean Corp Hgb Conc 32.4 g/dL (32-36); Mean Corpuscular Volume 93.5 fL (80-94); Mean Platelet Vol. 10.9 fl (6.2-12.0); Platelet Count 203 K/mm3 (150-450); RBC Distribution Width CV 15.8 % (11.6-14.6); RBC Distribution Width SD 53.9 fl (35.1-43.9); Red Blood Count 4.13 M/mm3 (4.6-6.2); White Blood Count 4.3 K/mm3 (4.4-11.0)
[2024-10-24 11:26] LABS: Anion Gap 11 (5-15); BUN 17 mg/dL (4-19); BUN/Creat Ratio 22.0 RATIO (10-20); Calcium,Total 9.2 mg/dL (7.6-11.0); Carbon Dioxide 24.6 mmol/L (21.0-32.0); Chloride 104 mmol/L (98-108); Glucose 154 mg/dL (70-99); Potassium 4.2 mmol/L (3.3-5.1)
== END | disposition home or self-care (01) ==
LOC: LAB 09:19
PROVIDERS: PCP Family Medicine; Referring Provider Internal Medicine Infectious Disease; Visit Provider Internal Medicine Infectious Disease
DX: T84.50XD Infection and inflammatory reaction due to unspecified internal joint prosthesis, subsequent encounter (principal)
CPT/HCPCS: 36415; 80048; 85027; 85652